=== PATIENT | male | born 1965 | race Caucasian/White ===

== ENCOUNTER 2017-02-16 15:34 | Observation (INO) | payer MEDICARE, MEDICAID ==
[2017-02-16] MEDS ORDERED: Aspirin 81 MG Tab.Chew PO ONE (15:39)
[2017-02-16] MEDS ORDERED: Nitroglycerin 0.4 MG Tab.SL SL PRN (15:39)
--- NOTE | 2017-02-16 15:41 | EDM.PDOC ---
ED HPI GENERAL MEDICAL PROBLEM - General Chief Complaint: Chest Pain Stated Complaint: CHEST Time Seen by Provider: 02/16/17 15:41 Source of Information: Reports: Patient - History of Present Illness INITIAL COMMENTS - FREE TEXT/NARRATIVE: HISTORY AND PHYSICAL: History of present illness: [] Patient with history of diabetes presents with chest pain intermittent yesterday a couple of episodes today at work sustained this afternoon for a period of one hour it did improve with nitroglycerin here in the emergency room he rated 3/10 nonradiating, he does have a reproducible component to palpation Otherwise no fever nausea vomiting diarrhea constipation chest pain is 0/10 at current no shortness of breath headache dizziness or palpitation no diaphoresis Review of systems: As per history of present illness and below otherwise all systems reviewed and negative. Past medical history: As per history of present illness and as reviewed below otherwise noncontributory. Surgical history: As per history of present illness and as reviewed below otherwise noncontributory. Social history: No reported history of drug or alcohol abuse. Family history: As per history of present illness and as reviewed below otherwise noncontributory. Physical exam: HEENT: Atraumatic, normocephalic, pupils reactive, negative for conjunctival pallor or scleral icterus, mucous membranes moist, throat clear, neck supple, nontender, trachea midline. Lungs: Clear to auscultation, breath sounds equal bilaterally, chest nontender. Heart: S1S2, regular, negative for clicks, rubs, or JVD. Abdomen: Soft, nondistended, nontender. Negative for masses or hepatosplenomegaly. Negative for costovertebral tenderness. Pelvis: Stable nontender. Genitourinary: Deferred. Rectal: Deferred. Extremities: Atraumatic, negative for cords or calf pain. Neurovascular unremarkable. Neuro: Awake, alert, oriented. Cranial nerves II through XII unremarkable. Cerebellum unremarkable. Motor and sensory unremarkable throughout. Exam nonfocal. Diagnostics: [] At as below EKG Chest one view Therapeutics: [] Are normal saline bolus Aspirin 324 mg by mouth Protonix 80 mg IV Nitroglycerin 0.4 sublingual Impression: [] aTypical chest pain Chronic history of baseline Definitive disposition and diagnosis as appropriate pending reevaluation and review of above. chest Pain Score (Numeric/FACES): 2 - Related Data Allergies Allergy/AdvReac Type Severity Reaction Status Date / Time Penicillins Allergy doesn't Verified 02/16/17 15:43 know sulfamethoxazole AdvReac Nausea and Verified 02/16/17 15:43 [From Bactrim] Vomiting Home Meds: Home Meds Efavirenz/Emtricitabine/Tenofo [Atripla] 1 tab PO DAILY 03/06/14 [History] Insulin Aspart [NovoLOG] 0 unit SUBCUT TIDAC pen 05/20/16 [Rx] Insulin NPH Hum/Reg Insulin Hm [Novolin 70-30 100 Unit/ml Vial] 10 unit SQ BID # 1 ml 05/20/16 [Rx] buPROPion [Wellbutrin XL] 150 mg PO DAILY@1900 tab.er 05/20/16 [Rx] Past Medical History HEENT History: Reports: None Cardiovascular History: Reports: SOB on Exertion Other Cardiovascular History: "A-V shunt" per patient. unable to elaborate further. Respiratory History: Reports: SOB Other Respiratory History: Pulmonary hypertension and pulmonary fibrosis. Gastrointestinal History: Reports: Cholelithiasis, Other (See Below), Pancreatitis Other Gastrointestinal History: nausea Genitourinary History: Reports: Renal Disease Other Genitourinary History: "only one kidney works" Other Musculoskeletal History: Sclerotic bone lesions of pelvis and spine on prev CT's. Neurological History: Reports: None Psychiatric History: Reports: Depression Endocrine/Metabolic History: Reports: Diabetes, Type II Hematologic History: Reports: None Immunologic History: Reports: HIV Oncologic (Cancer) History: Reports: None - Infectious Disease History Infectious Disease History: Reports: Chicken Pox, HIV-Human Immunodeficiency Virus - Past Surgical History Head Surgeries/Procedures: Reports: None Cardiovascular Surgical History: Reports: None Respiratory Surgical History: Reports: None GI Surgical History: Reports: None Male Surgical History: Reports: None Endocrine Surgical History: Reports: None Social & Family History - Family History Family Medical History: Noncontributory Cardiac: Reports: [place] Musculoskeletal: Reports: Arthritis Neurological: Reports: CVA Psychiatric: Reports: None Endocrine/Metabolic: Reports: Diabetes, type II - Tobacco Use Smoking Status *Q: Former Smoker Years of Tobacco use: 20 Packs/Tins Daily: 1 Second Hand Smoke Exposure: Yes - Alcohol Use Days Per Week of Alcohol Use: 0 - Recreational Drug Use Recreational Drug Use: Yes Drug Use in Last 12 Months: No Recreational Drug Type: Reports: Marijuana/Hashish - Living Situation & Occupation Living situation: Reports: Alone, Single Occupation: Unemployed ED ROS GENERAL - Review of Systems Review Of Systems: ROS reveals no pertinent complaints other than HPI. ED EXAM, GENERAL - Physical Exam Exam: See Below Course - Vital Signs Last Recorded V/S: Last Vital Signs Temp 36.9 C 02/16/17 15:44 Pulse 68 02/16/17 15:55 Resp 22 H 02/16/17 15:55 BP 101/61 02/16/17 15:55 Pulse Ox 93 L 02/16/17 15:55 - Orders/Labs/Meds Orders: Active Orders 24 hr Category Date Time Status EKG Documentation Completion [RC] STAT Care 02/16/17 15:38 Active UA W/MICROSCOPIC [URIN] Stat Lab 02/16/17 15:38 Uncollected Sodium Chloride 0.9% [Normal Saline] 1,000 ml Med 02/16/17 15:47 Active IV STAT Medication Orders Sodium Chloride (Normal Saline) 1,000 mls @ 999 mls/hr IV STAT ONE Stop: 02/16/17 16:47 Last Admin: 02/16/17 15:52 Dose: 999 mls/hr Labs: Laboratory Tests 02/16/17 02/16/17 02/16/17 Range/Units 15:41 15:41 15:41 WBC 6.71 (4.0-11.0) K/uL RBC 4.42 L (4.50-5.90) M/uL Hgb 13.2 (13.0-17.0) g/dL Hct 37.5 L (38.0-50.0) % MCV 84.8 (80.0-98.0) fL MCH 29.9 (27.0-32.0) pg MCHC 35.2 (31.0-37.0) g/dL RDW Std Deviation 47.1 (28.0-62.0) fl RDW Coeff of Blanche 15 (11.0-15.0) % Plt Count 118 L (150-400) K/uL MPV 10.00 (7.40-12.00) fL Neut % (Auto) 33.9 L (48.0-80.0) % Lymph % (Auto) 51.4 H (16.0-40.0) % [place] % (Auto) 9.2 (0.0-15.0) % Eos % (Auto) 5.1 (0.0-7.0) % Baso % (Auto) 0.4 (0.0-1.5) % Neut # (Auto) 2.3 (1.4-5.7) K/uL Lymph # (Auto) 3.5 H (0.6-2.4) K/uL [place] # (Auto) 0.6 (0.0-0.8) K/uL Eos # (Auto) 0.3 (0.0-0.7) K/uL Baso # (Auto) 0.0 (0.0-0.1) K/uL Nucleated RBC % 0.0 /100WBC Nucleated RBCs # 0 K/uL Sodium 139 (136-146) mmol/L Potassium 3.6 (3.5-5.1) mmol/L Chloride 117 H (98-110) mmol/L Carbon Dioxide 13 L (21-31) mmol/L BUN 22 (6.0-23.0) mg/dL Creatinine 0.9 (0.6-1.5) mg/dL Est Cr Clr Drug Dosing 82.02 mL/min Estimated GFR (MDRD) > 60.0 ml/min Glucose 90 (60-110) mg/dL Calcium 8.3 L (8.8-10.8) mg/dL Total Bilirubin 1.0 (0.1-1.5) mg/dL AST 35 (5-40) IU/L ALT 17 (8-54) IU/L Alkaline Phosphatase 132 (40-150) Creatine Kinase (9-236) IU/L CK-MB (CK-2) (0-6.6) ng/ml Troponin I < 0.10 (0.0-0.29) NG/ML Total Protein 7.3 (6.0-8.0) g/dL Albumin 3.5 (3.5-5.0) g/dL Globulin 3.8 H (2.0-3.5) g/dL Albumin/Globulin Ratio 0.9 L (1.3-2.8) Amylase 32 (10-90) U/L Lipase < 8 (7-80) U/L /30/17 Range/Units 15:41 WBC (4.0-11.0) K/uL RBC (4.50-5.90) M/uL Hgb (13.0-17.0) g/dL Hct (38.0-50.0) % MCV (80.0-98.0) fL MCH (27.0-32.0) pg MCHC (31.0-37.0) g/dL RDW Std Deviation (28.0-62.0) fl RDW Coeff of Blanche (11.0-15.0) % Plt Count (150-400) K/uL MPV (7.40-12.00) fL Neut % (Auto) (48.0-80.0) % Lymph % (Auto) (16.0-40.0) % [place] % (Auto) (0.0-15.0) % Eos % (Auto) (0.0-7.0) % Baso % (Auto) (0.0-1.5) % Neut # (Auto) (1.4-5.7) K/uL Lymph # (Auto) (0.6-2.4) K/uL [place] # (Auto) (0.0-0.8) K/uL Eos # (Auto) (0.0-0.7) K/uL Baso # (Auto) (0.0-0.1) K/uL Nucleated RBC % /100WBC Nucleated RBCs # K/uL Sodium (136-146) mmol/L Potassium (3.5-5.1) mmol/L Chloride (98-110) mmol/L Carbon Dioxide (21-31) mmol/L BUN (6.0-23.0) mg/dL Creatinine (0.6-1.5) mg/dL Est Cr Clr Drug Dosing mL/min Estimated GFR (MDRD) ml/min Glucose (60-110) mg/dL Calcium (8.8-10.8) mg/dL Total Bilirubin (0.1-1.5) mg/dL AST (5-40) IU/L ALT (8-54) IU/L Alkaline Phosphatase (40-150) Creatine Kinase 97 (9-236) IU/L CK-MB (CK-2) 0.8 (0-6.6) ng/ml Troponin I (0.0-0.29) NG/ML Total Protein (6.0-8.0) g/dL Albumin (3.5-5.0) g/dL Globulin (2.0-3.5) g/dL Albumin/Globulin Ratio (1.3-2.8) Amylase (10-90) U/L Lipase (7-80) U/L Meds: Medications Generic Name Dose Route Start Last Admin Trade Name Miriam PRN Reason Stop Dose Admin Sodium Chloride 1,000 mls @ 999 mls/hr 02/16/17 15:47 02/16/17 15:52 Normal Saline IV 02/16/17 16:47 999 mls/hr STAT ONE Administration Discontinued Medications Generic Name Dose Route Start Last Admin Trade Name Baldoq PRN Reason Stop Dose Admin Aspirin 324 mg 02/16/17 15:39 02/16/17 15:48 Aspirin PO 02/16/17 15:40 324 mg ONETIME ONE Administration Pantoprazole Sodium 40 mg/ 10 mls @ 300 mls/hr 02/16/17 15:58 02/16/17 16:06 Sodium Chloride IVPUSH 02/16/17 15:59 Not Given NOW ONE Pantoprazole Sodium 40 mg/ 10 mls @ 300 mls/hr 02/16/17 16:05 02/16/17 16:06 Sodium Chloride IVPUSH 02/16/17 16:06 300 mls/hr NOW ONE Administration Nitroglycerin 0.4 mg 02/16/17 15:39 02/16/17 15:50 Nitrostat SL 02/16/17 15:50 0.4 mg Q5M PRN Administration Chest Pain Departure - Departure Time of Disposition: 16:33 Disposition: Admitted As Inpatient 65 Condition: fair Clinical Impression: Atypical chest pain - Discharge Information Forms: ED Department Discharge - My Orders Last 24 Hours: My Active Orders 02/16/17 15:38 EKG Documentation Completion [RC] STAT UA W/MICROSCOPIC [URIN] Stat 02/16/17 15:47 Sodium Chloride 0.9% [Normal Saline] 1,000 ml IV STAT - Assessment/Plan Last 24 Hours: My Active Orders 02/16/17 15:38 EKG Documentation Completion [RC] STAT UA W/MICROSCOPIC [URIN] Stat 02/16/17 15:47 Sodium Chloride 0.9% [Normal Saline] 1,000 ml IV STAT
[2017-02-16] MEDS ORDERED: Sodium Chloride 0.9% 1,000 ML IV ONE (15:47)
[2017-02-16] MEDS ORDERED: Pantoprazole 40 MG in Sodium Chloride 0.9% 10 ML IVPUSH ONE ×2 (15:58→16:05)
--- NOTE | 2017-02-16 16:08 | CR ---
EXAMINATION: Portable chest radiograph. HISTORY: Pain. FINDINGS: The trachea is midline. The cardiomediastinal silhouette is within normal limits. No pulmonary infil trates, effusions or pneumothorax. Mild chronic interstitial prominence. Osseous structures appear unremarkable. IMPRESSION: No acute cardiopulmonary process.
[2017-02-16 16:11] LABS: CHLORIDE,CL 117 mmol/L (98-110); SODIUM,NA 139 mmol/L (136-146)
[2017-02-16] MEDS ORDERED: Acetaminophen 325 MG Tab PO PRN (18:16)
[2017-02-16] MEDS ORDERED: Albuterol/Ipratropium 3.0-0.5 MG/3 ML Neb Soln NEB PRN (18:16)
--- NOTE | 2017-02-16 19:45 | PCM.HP ---
<Baluch,John - Last Filed: 02/16/17 20:36> H&P History of Present Illness - General Date of Service: 02/16/17 Admit Problem/Dx: Admission Diagnosis/Problem Admission Diagnosis/Problem Atypical chest pain Source of Information: Patient History Limitations: Reports: Uncooperative - History of Present Illness Initial Comments - Free Text/Narative: 51 yo male with history of DM and HIV admitted for atypical chest pain. History is difficult to obtain as patient seems reluctant to answer questions and will do so only if they are repeated multiple times to him. Chest pain occurred at 1300 today, was mild, substernal, lasted few minutes and occurred while he was walking to the elevator in his aparrtment. He has never had pain like this before. He denies any radiation of pain. He complains of RUSSELL that has been going on for several years now. He states that he sees a lung specialist in [place] whom he had an appointment to see tomorrow. He cancelled the appointment because he has another appointment with another doctor and he wants to schedule both together. His only medication is insulin. He gets it refilled from [facility]. He has seen either 1 or 2 physicians there. He states he was born and raised in [place] and lives on his own. He does not comment on his HIV status. His only complaint is generalized weakness. chest Pain Score (Numeric/FACES): 2 - Related Data Allergies/Adverse Reactions: Allergies Allergy/AdvReac Type Severity Reaction Status Date / Time Penicillins Allergy doesn't Verified 02/16/17 15:43 know sulfamethoxazole AdvReac Nausea and Verified 02/16/17 15:43 [From Bactrim] Vomiting Home Medications: Home Meds Efavirenz/Emtricitabine/Tenofo [Atripla] 1 tab PO BEDTIME 03/06/14 [History] Insulin NPH Hum/Reg Insulin Hm [Novolin 70-30 100 Unit/ml Vial] 18 unit SQ DAILY 02/16/17 [History] Past Medical History HEENT History: Reports: None Cardiovascular History: Reports: SOB on Exertion Other Cardiovascular History: "A-V shunt" per patient. unable to elaborate further. Respiratory History: Reports: SOB Other Respiratory History: Pulmonary hypertension and pulmonary fibrosis. Gastrointestinal History: Reports: Cholelithiasis, Other (See Below), Pancreatitis Other Gastrointestinal History: nausea Genitourinary History: Reports: Renal Disease Other Genitourinary History: "only one kidney works" Other Musculoskeletal History: Sclerotic bone lesions of pelvis and spine on prev CT's. Neurological History: Reports: None Psychiatric History: Reports: Depression Endocrine/Metabolic History: Reports: Diabetes, Type II Hematologic History: Reports: None Immunologic History: Reports: HIV Other Immunologic History: From previous hx but pt is not confirming @ this time. Oncologic (Cancer) History: Reports: None - Infectious Disease History Infectious Disease History: Reports: Chicken Pox, HIV-Human Immunodeficiency Virus - Past Surgical History Head Surgeries/Procedures: Reports: None Cardiovascular Surgical History: Reports: None Respiratory Surgical History: Reports: None GI Surgical History: Reports: None Male Surgical History: Reports: None Endocrine Surgical History: Reports: None Social & Family History - Family History Family Medical History: Noncontributory Cardiac: Reports: [place] Musculoskeletal: Reports: Arthritis Neurological: Reports: CVA Psychiatric: Reports: None Endocrine/Metabolic: Reports: Diabetes, type II - Tobacco Use Smoking Status *Q: Never Smoker Years of Tobacco use: 20 Packs/Tins Daily: 1 Second Hand Smoke Exposure: No - Caffeine Use Caffeine Use: Reports: Coffee Caffeine Use Comment: 1 cup daily - Alcohol Use Days Per Week of Alcohol Use: 0 - Recreational Drug Use Recreational Drug Use: No Drug Use in Last 12 Months: No Recreational Drug Type: Reports: Marijuana/Hashish - Living Situation & Occupation Living situation: Reports: Alone, Single Occupation: Unemployed H&P Review of Systems - Review of Systems: Review Of Systems: See Below General: Reports: Weakness, Fatigue HEENT: Reports: No Symptoms Pulmonary: Reports: Shortness of Breath Cardiovascular: Reports: Chest Pain, Dyspnea on Exertion Gastrointestinal: Reports: No Symptoms Genitourinary: Reports: No Symptoms Musculoskeletal: Reports: No Symptoms Skin: Reports: No Symptoms Psychiatric: Reports: No Symptoms Neurological: Reports: No Symptoms Exam - Exam Exam: See Below - Vital Signs Vital Signs: Last Vital Signs Temp 36.9 C 02/16/17 17:13 Pulse 66 02/16/17 17:13 Resp 18 02/16/17 17:13 BP 101/57 L 02/16/17 17:13 Pulse Ox 90 L 02/16/17 17:13 Weight: 60.4 kg - Exam General: No: Cooperative HEENT: Conjunctiva Clear, EACs Clear Neck: Supple. No: Lymphadenopathy Lungs: Clear to Auscultation, Normal Respiratory Effort Cardiovascular: Regular Rate, Regular Rhythm Abdomen: Normal Bowel Sounds, Soft Extremities: No: Edema Skin: Warm, Dry, Intact - Patient Data Result Diagrams: 02/16/17 15:41 02/16/17 15:41 *Q Meaningful Use (ADM) - VTE *Q VTE Criteria *Q: - Stroke *Q Stroke Criteria *Q: - AMI *Q AMI Criteria *Q: Problem List Initiated/Reviewed/Updated: Yes Orders Last 24hrs: Active Orders 24 hr Category Date Time Status Patient Status [ADT] Routine ADT 02/16/17 18:16 Active Antiembolic Devices [RC] PER UNIT ROUTINE Care 02/16/17 18:30 Active Blood Glucose Check, Bedside [RC] TIDMEALS Care 02/16/17 18:16 Active Cardiac Monitoring [RC] CONTINUOUS Care 02/16/17 18:25 Inactive Oxygen Therapy [RC] PRN Care 02/16/17 18:16 Active RT Aerosol Therapy [RC] ASDIRECTED Care 02/16/17 18:30 Active Telemetry Monitoring [Cardiac Monitoring] [RC] . Care 02/16/17 18:47 Active DIRECTED VTE/DVT Education [RC] PER UNIT ROUTINE Care 02/16/17 18:16 Active Vital Signs [RC] Q4H Care 02/16/17 18:16 Active ADA Diabetic [[place] [employer] Diet] [DIET Diet 02/16/17 Dinner Active ] BASIC METABOLIC PANEL,BMP [CHEM] AM Lab 02/17/17 05:11 Ordered CBC WITH AUTO DIFF [HEME] AM Lab 02/17/17 05:11 Ordered Acetaminophen [Tylenol] Med 02/16/17 18:16 Active 650 mg PO Q4H PRN Albuterol/Ipratropium [DuoNeb 3.0-0.5 MG/3 ML] Med 02/16/17 18:16 Active 3 ml NEB Q4HRRT PRN Sequential Compression Device [OM.PC] Per Unit Routine Oth 02/16/17 18:26 Ordered Resuscitation Status Routine Resus Stat 02/16/17 18:16 Ordered Medication Orders Acetaminophen (Tylenol) 650 mg PO Q4H PRN PRN Reason: Pain (Mild 1-3)/fever Albuterol/Ipratropium (Duoneb 3.0-0.5 Mg/3 Ml) 3 ml NEB Q4HRRT PRN PRN Reason: Shortness Of Breath/wheezing Assessment/Plan Comment:: assessment: 51 yo male with history of DM & HIV admitted for Atypical Chest Pain. in ED he had CBC/CMP/EKG/CXR all which showed no abnormalities. plan: 1. admit to observation 2. telemetry 3. ADA 4. blood glucose TIDAC 5. Novolog sliding scale as per protocol 6. monitor troponin [id number] for total 3 sets 7. as per orders <Brad Zee - Last Filed: 02/17/17 09:19> H&P History of Present Illness - General Admit Problem/Dx: Admission Diagnosis/Problem Admission Diagnosis/Problem Atypical chest pain - History of Present Illness Initial Comments - Free Text/Narative: I was present with the resident during history and physical examination. I have discussed the case with the resident agree with the findings and plan as documented in resident's note. 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 Exam - Vital Signs Vital Signs: Last Vital Signs Temp 36.8 C 02/17/17 08:00 Pulse 68 02/17/17 08:00 Resp 16 02/17/17 08:00 BP 114/69 02/17/17 08:00 Pulse Ox 95 02/17/17 08:00 - Patient Data Lab Results last 24 hrs: Laboratory Results - last 24 hr 02/16/17 02/17/17 02/17/17 Range/Units 19:32 01:40 01:40 WBC 4.09 (4.0-11.0) K/uL RBC 4.17 L (4.50-5.90) M/uL Hgb 12.6 L (13.0-17.0) g/dL Hct 35.4 L (38.0-50.0) % MCV 84.9 (80.0-98.0) fL MCH 30.2 (27.0-32.0) pg MCHC 35.6 (31.0-37.0) g/dL RDW Std Deviation 46.7 (28.0-62.0) fl RDW Coeff of Blanche 15 (11.0-15.0) % Plt Count 106 L (150-400) K/uL MPV 10.90 (7.40-12.00) fL Neut % (Auto) 33.9 L (48.0-80.0) % Lymph % (Auto) 46.2 H (16.0-40.0) % [place] % (Auto) 10.8 (0.0-15.0) % Eos % (Auto) 8.6 H (0.0-7.0) % Baso % (Auto) 0.5 (0.0-1.5) % Neut # (Auto) 1.4 (1.4-5.7) K/uL Lymph # (Auto) 1.9 (0.6-2.4) K/uL [place] # (Auto) 0.4 (0.0-0.8) K/uL Eos # (Auto) 0.4 (0.0-0.7) K/uL Baso # (Auto) 0.0 (0.0-0.1) K/uL Nucleated RBC % 0.0 /100WBC Nucleated RBCs # 0 K/uL Sodium 137 (136-146) mmol/L Potassium 4.6 (3.5-5.1) mmol/L Chloride 116 H (98-110) mmol/L Carbon Dioxide 14 L (21-31) mmol/L BUN 18 (6.0-23.0) mg/dL Creatinine 0.9 (0.6-1.5) mg/dL Est Cr Clr Drug Dosing 82.02 mL/min Estimated GFR (MDRD) > 60.0 ml/min Glucose 127 H (60-110) mg/dL POC Glucose 136 H (60-110) mg/dL Calcium 7.8 L (8.8-10.8) mg/dL Troponin I (0.0-0.29) NG/ML 02/17/17 02/17/17 Range/Units 01:45 07:42 WBC (4.0-11.0) K/uL RBC (4.50-5.90) M/uL Hgb (13.0-17.0) g/dL Hct (38.0-50.0) % MCV (80.0-98.0) fL MCH (27.0-32.0) pg MCHC (31.0-37.0) g/dL RDW Std Deviation (28.0-62.0) fl RDW Coeff of Blanche (11.0-15.0) % Plt Count (150-400) K/uL MPV (7.40-12.00) fL Neut % (Auto) (48.0-80.0) % Lymph % (Auto) (16.0-40.0) % [place] % (Auto) (0.0-15.0) % Eos % (Auto) (0.0-7.0) % Baso % (Auto) (0.0-1.5) % Neut # (Auto) (1.4-5.7) K/uL Lymph # (Auto) (0.6-2.4) K/uL [place] # (Auto) (0.0-0.8) K/uL Eos # (Auto) (0.0-0.7) K/uL Baso # (Auto) (0.0-0.1) K/uL Nucleated RBC % /100WBC Nucleated RBCs # K/uL Sodium (136-146) mmol/L Potassium (3.5-5.1) mmol/L Chloride (98-110) mmol/L Carbon Dioxide (21-31) mmol/L BUN (6.0-23.0) mg/dL Creatinine (0.6-1.5) mg/dL Est Cr Clr Drug Dosing mL/min Estimated GFR (MDRD) ml/min Glucose (60-110) mg/dL POC Glucose (60-110) mg/dL Calcium (8.8-10.8) mg/dL Troponin I < 0.10 < 0.10 (0.0-0.29) NG/ML Result Diagrams: 02/17/17 01:40 02/17/17 01:40 *Q Meaningful Use (ADM) - VTE *Q VTE Criteria *Q: - Stroke *Q Stroke Criteria *Q: - AMI *Q AMI Criteria *Q: Orders Last 24hrs: Active Orders 24 hr Category Date Time Status Patient Status [ADT] Routine ADT 02/16/17 18:16 Active Transfer Patient (Change bed) [ADT] Routine ADT 02/16/17 22:30 Ordered Antiembolic Devices [RC] PER UNIT ROUTINE Care 02/16/17 18:30 Active Blood Glucose Check, Bedside [RC] TIDMEALS Care 02/16/17 18:16 Active Cardiac Monitoring [RC] CONTINUOUS Care 02/16/17 18:25 Inactive Oxygen Therapy [RC] PRN Care 02/16/17 18:16 Active RT Aerosol Therapy [RC] ASDIRECTED Care 02/16/17 18:30 Active Telemetry Monitoring [Cardiac Monitoring] [RC] Q8H Care 02/16/17 18:47 Active Vital Signs [RC] Q4H Care 02/16/17 18:16 Active ADA Diabetic [[place] [employer] Diet] [DIET Diet 02/16/17 Dinner Active ] Acetaminophen [Tylenol] Med 02/16/17 18:16 Active 650 mg PO Q4H PRN Albuterol/Ipratropium [DuoNeb 3.0-0.5 MG/3 ML] Med 02/16/17 18:16 Active 3 ml NEB Q4HRRT PRN Insulin Aspart [NovoLOG] Med 02/17/17 07:30 Active See Protocol SUBCUT TIDAC Sequential Compression Device [OM.PC] Per Unit Routine Oth 02/16/17 18:26 Ordered Resuscitation Status Routine Resus Stat 02/16/17 18:16 Ordered Medication Orders Acetaminophen (Tylenol) 650 mg PO Q4H PRN PRN Reason: Pain (Mild 1-3)/fever Albuterol/Ipratropium (Duoneb 3.0-0.5 Mg/3 Ml) 3 ml NEB Q4HRRT PRN PRN Reason: Shortness Of Breath/wheezing Insulin Aspart (Novolog) 0 unit SUBCUT TIDAC CITLALY PRN Reason: Protocol Last Admin: 02/17/17 06:56 Dose: Not Given
[2017-02-17 02:44] LABS: CHLORIDE,CL 116 mmol/L (98-110); SODIUM,NA 137 mmol/L (136-146)
[2017-02-17] MEDS ORDERED: Insulin Aspart 100 Units/ML 3 ML Pen SUBCUT SCH (07:30)
[2017-02-17 08:11] VITALS: BP 114/69
--- NOTE | 2017-02-17 08:24 | PCM.DCSUM1 ---
Discharge Summary - Hospital Course Free Text/Narrative:: 51 year old male with history of DM and HIV admitted for atypical chest pain. Pain was short and intermittent. Pain resolved prior to admission to floor. His pain did not occur. In ED he had EKG, CXR, Troponin and basic labs all which revealed no significant abnormalities. While on the floor he was monitored on telemetry which was NSR throughout. He was given Novolog sliding scale for his DM. His Toroponin was monitored q6 hours for total 3 sets and all were negative. Patient requested discharge the following day. WE gave him option for follow-up with a pcp at [facility] however patient refused and stated that he will be following up with his pcp at [facility]. He also has f/u with advertising analyst that he missed and will be rescheduling. No changes were made to his medications. - Discharge Data Discharge Date: 02/17/17 Discharge Disposition: Home, Self-Care 01 Condition: Good - Patient Instructions Diet: Diabetic Diet Activity: As Tolerated Notify Provider of: Fever, Increased Pain, Swelling and Redness, Drainage, Nausea and/or Vomiting - Discharge Plan Home Medications: Home Meds Efavirenz/Emtricitabine/Tenofo [Atripla] 1 tab PO BEDTIME 03/06/14 [History] Insulin NPH Hum/Reg Insulin Hm [Novolin 70-30 100 Unit/ml Vial] 18 unit SQ DAILY 02/16/17 [History] Forms: ED Department Discharge Referrals: PCP,None [Primary Care Provider] - - Discharge Summary/Plan Comment DC Time >30 min.: No Discharge Summary/Plan Comment: Patient will be following with PCP at [facility]. - Patient Data Vitals - Most Recent: Last Vital Signs Temp 36.8 C 02/17/17 08:00 Pulse 68 02/17/17 08:00 Resp 16 02/17/17 08:00 BP 114/69 02/17/17 08:00 Pulse Ox 95 02/17/17 08:00 Weight - Most Recent: 60.4 kg I&O - Last 24 hours: Intake & Output 02/16/17 02/17/17 02/17/17 22:59 06:59 14:59 Intake Total 350 Balance 350 Lab Results - Last 24 hrs: Laboratory Results - last 24 hr 05/30/17 05/31/17 05/31/17 Range/Units 19:32 01:40 01:40 WBC 4.09 (4.0-11.0) K/uL RBC 4.17 L (4.50-5.90) M/uL Hgb 12.6 L (13.0-17.0) g/dL Hct 35.4 L (38.0-50.0) % MCV 84.9 (80.0-98.0) fL MCH 30.2 (27.0-32.0) pg MCHC 35.6 (31.0-37.0) g/dL RDW Std Deviation 46.7 (28.0-62.0) fl RDW Coeff of Blanche 15 (11.0-15.0) % Plt Count 106 L (150-400) K/uL MPV 10.90 (7.40-12.00) fL Neut % (Auto) 33.9 L (48.0-80.0) % Lymph % (Auto) 46.2 H (16.0-40.0) % [place] % (Auto) 10.8 (0.0-15.0) % Eos % (Auto) 8.6 H (0.0-7.0) % Baso % (Auto) 0.5 (0.0-1.5) % Neut # (Auto) 1.4 (1.4-5.7) K/uL Lymph # (Auto) 1.9 (0.6-2.4) K/uL [place] # (Auto) 0.4 (0.0-0.8) K/uL Eos # (Auto) 0.4 (0.0-0.7) K/uL Baso # (Auto) 0.0 (0.0-0.1) K/uL Nucleated RBC % 0.0 /100WBC Nucleated RBCs # 0 K/uL Sodium 137 (136-146) mmol/L Potassium 4.6 (3.5-5.1) mmol/L Chloride 116 H (98-110) mmol/L Carbon Dioxide 14 L (21-31) mmol/L BUN 18 (6.0-23.0) mg/dL Creatinine 0.9 (0.6-1.5) mg/dL Est Cr Clr Drug Dosing 82.02 mL/min Estimated GFR (MDRD) > 60.0 ml/min Glucose 127 H (60-110) mg/dL POC Glucose 136 H (60-110) mg/dL Calcium 7.8 L (8.8-10.8) mg/dL Troponin I (0.0-0.29) NG/ML 02/17/17 02/17/17 Range/Units 01:45 07:42 WBC (4.0-11.0) K/uL RBC (4.50-5.90) M/uL Hgb (13.0-17.0) g/dL Hct (38.0-50.0) % MCV (80.0-98.0) fL MCH (27.0-32.0) pg MCHC (31.0-37.0) g/dL RDW Std Deviation (28.0-62.0) fl RDW Coeff of Blanche (11.0-15.0) % Plt Count (150-400) K/uL MPV (7.40-12.00) fL Neut % (Auto) (48.0-80.0) % Lymph % (Auto) (16.0-40.0) % [place] % (Auto) (0.0-15.0) % Eos % (Auto) (0.0-7.0) % Baso % (Auto) (0.0-1.5) % Neut # (Auto) (1.4-5.7) K/uL Lymph # (Auto) (0.6-2.4) K/uL [place] # (Auto) (0.0-0.8) K/uL Eos # (Auto) (0.0-0.7) K/uL Baso # (Auto) (0.0-0.1) K/uL Nucleated RBC % /100WBC Nucleated RBCs # K/uL Sodium (136-146) mmol/L Potassium (3.5-5.1) mmol/L Chloride (98-110) mmol/L Carbon Dioxide (21-31) mmol/L BUN (6.0-23.0) mg/dL Creatinine (0.6-1.5) mg/dL Est Cr Clr Drug Dosing mL/min Estimated GFR (MDRD) ml/min Glucose (60-110) mg/dL POC Glucose (60-110) mg/dL Calcium (8.8-10.8) mg/dL Troponin I < 0.10 < 0.10 (0.0-0.29) NG/ML Med Orders - Current: Current Medications Acetaminophen (Tylenol) 650 mg PO Q4H PRN PRN Reason: Pain (Mild 1-3)/fever Albuterol/Ipratropium (Duoneb 3.0-0.5 Mg/3 Ml) 3 ml NEB Q4HRRT PRN PRN Reason: Shortness Of Breath/wheezing Insulin Aspart (Novolog) 0 unit SUBCUT TIDAC CITLALY PRN Reason: Protocol Last Admin: 02/17/17 06:56 Dose: Not Given Discontinued Medications Aspirin (Aspirin) 324 mg PO ONETIME ONE Stop: 02/16/17 15:40 Last Admin: 02/16/17 15:48 Dose: 324 mg Sodium Chloride (Normal Saline) 1,000 mls @ 999 mls/hr IV STAT ONE Stop: 02/16/17 16:47 Last Admin: 02/16/17 15:52 Dose: 999 mls/hr Pantoprazole Sodium 40 mg/ (Sodium Chloride) 10 mls @ 300 mls/hr IVPUSH NOW ONE Stop: 02/16/17 15:59 Last Admin: 02/16/17 16:06 Dose: Not Given Pantoprazole Sodium 40 mg/ (Sodium Chloride) 10 mls @ 300 mls/hr IVPUSH NOW ONE Stop: 02/16/17 16:06 Last Admin: 02/16/17 16:06 Dose: 300 mls/hr Nitroglycerin (Nitrostat) 0.4 mg SL Q5M PRN PRN Reason: Chest Pain Stop: 02/16/17 15:50 Last Admin: 02/16/17 15:50 Dose: 0.4 mg *Q Meaningful Use (DIS) - VTE *Q VTE Criteria *Q: - Stroke *Q Stroke Criteria *Q: - AMI *Q AMI Criteria *Q:
== END 2017-02-17 10:15 | disposition home or self-care (01) ==
LOC: MW.ED 15:34 → MW.ICU 16:34 → MW.ED 16:54 → MW.MS 22:00
PROVIDERS: ADMIT Internal Medicine; ATTEND Internal Medicine
DX: R07.89 Other chest pain (principal); E11.9 Type 2 diabetes mellitus without complications; Z21 Asymptomatic human immunodeficiency virus [HIV] infection status; I27.2 Other secondary pulmonary hypertension; J84.10 Pulmonary fibrosis, unspecified; F32.9 Major depressive disorder, single episode, unspecified; Z88.0 Allergy status to penicillin; Z88.2 Allergy status to sulfonamides; Z79.4 Long term (current) use of insulin; Z79.899 Other long term (current) drug therapy
CPT/HCPCS: 36415; 71010; 80048; 80053; 82150; 82550; 82553; 82962; 83690; 84484; 85025; 93005; 96361; 96374; 99285; A9270; C9113; G0378; J7040

== ENCOUNTER 2018-01-27 23:49 | Inpatient (IN) | payer MEDICARE, MEDICAID ==
[2018-01-27] MEDS ORDERED: Sodium Chloride 0.9% 2.5 ML Syringe FLUSH PRN (23:57)
[2018-01-27] MEDS ORDERED: Albuterol/Ipratropium 3.0-0.5 MG/3 ML Neb Soln NEB ONE (23:57)
[2018-01-27] MEDS ORDERED: Sodium Chloride 0.9% 1,000 ML IV ONE (23:57)
[2018-01-27] MEDS ORDERED: Sodium Chloride 0.9% 10 ML Syringe FLUSH PRN (23:57)
--- NOTE | 2018-01-28 00:03 | EDM.PDOC ---
ED HPI GENERAL MEDICAL PROBLEM - General Chief Complaint: Respiratory Problem Stated Complaint: UNK Time Seen by Provider: 01/27/18 23:54 - History of Present Illness INITIAL COMMENTS - FREE TEXT/NARRATIVE: HISTORY AND PHYSICAL: History of present illness: The patient is a 52-year-old male who is brought here EMS with a history of COPD HIV positive status diabetes, insulin requiring, who initially EMS was dispensed for patient being found in the hallway with decreased level of consciousness who on their arrival woke up was interactive and refused transfer. According to the story which they called me on the patient was trying to get into his unit to get his oxygen tank and he lowered himself to the ground not hitting his head or passing out. Without the oxygen he felt confused and once the paramedics corrected that he was awake alert and oriented and did not want to be transferred. EMS stated the scene because I did not feel he look quite right and during the course of their evaluation of him he was not maintaining his O2 sats despite oxygen. The patient says he has COPD and diabetes but is not very good with giving the history here. He denies any chest pain abdominal pain or any extremity complaints and has no head neck or back pain. The patient is very slow to answer and I need to ask questions multiple times. Patient normally is on 5 L of oxygen at his baseline and his Accu-Chek per EMS was 399. He cannot tell me about his medications or when he is taken today and he does not tell me he specifically has had a cough or a specific fever. Patient says that he is shaky and that is visible on my evaluation. Patient was admitted here at the end of January of last year for atypical chest pain and that is where I learned of his HIV positive status. Further information is not known about this patient and he has not had any ER visits since that time. He has had some clinic visits and I will attempt to get those records Review of systems: As per history of present illness and below otherwise all systems reviewed and negative. Past medical history: As per history of present illness and as reviewed below otherwise noncontributory. Surgical history: As per history of present illness and as reviewed below otherwise noncontributory. Social history: No reported history of drug or alcohol abuse. Family history: As per history of present illness and as reviewed below otherwise noncontributory. Physical exam: General: Well-developed very thin and frail male who is very shaky on my evaluation but moves all extremities spontaneously and will answer questions. His O2 sat at rest is in the high 80s when I have him take deep breaths on my exam his sats will go up to the mid 90s. HEENT: Atraumatic, normocephalic, pupils reactive, negative for conjunctival pallor or scleral icterus, mucous membranes tacky, throat clear, neck supple, nontender, trachea midline. Lungs: Clear to auscultation occasional coarse breath sound but no wheezing stridor or work of breathing. He does have some exaggerated work of breathing, breath sounds equal bilaterally, chest nontender. Heart: S1S2, regular rhythm but tachycardic rate on my evaluation, negative for clicks, rubs, or JVD. No overt murmurs are appreciated Abdomen: Soft, nondistended, nontender. Negative for masses or hepatosplenomegaly. Negative for costovertebral tenderness. Pelvis: Stable nontender. Genitourinary: Deferred. Rectal: Deferred. Extremities: Atraumatic, negative for cords or calf pain. Neurovascular unremarkable. Full range of motion without tenderness defects or deficits and there is no pedal edema Neuro: Awake, alert, and answering simple questions. Cranial nerves II through XII are grossly unremarkable with the patient is very challenging exam Motor and sensory unremarkable throughout. Exam nonfocal. Skin: There is no evidence of any overt rashes or lesions and turgor seems slightly diminished Back: There are no midline step-offs tenderness or defects of the thoracic or lumbar spine no posterior rib tenderness and no visible evidence of any trauma on the back trunk or extremities Diagnostics: EKG 2 CBC CMP INR troponin lactic acid UA urine culture blood cultures [address] scan of the head portable chest x-ray CPK, LDH CTA of the chest Therapeutics: IV O2 monitors IV fluids duoneb Levaquin and Rocephin According to the clinic records, which are sparse, the patient takes insulin Zofran trazodone bupropion and Atripla, ages a triple antiviral drugs for HIV. There were no recent clinic notes to look at in the last note from [facility] was in 2015 and the last encounter with Dr. EDWARDS sales representative [employer] was August 2017. 0110: Patient is improving clinically and as her rate now is below 100 and his O2 sats are in the high 90s to 100 on 15 L. We will begin to titrate his oxygen. I will repeat his EKG as the first one had significant artifact. His labs are indicating a metabolic acidosis and possible early sepsis but at this point I do not have a source but I'm awaiting a urine sample. I will also add CPK and LDH to his labs. 0130: Patient is much more awake and talkative now as we told him that if he did not give a urine sample we would have to do a catheterization. His immediate response to that conversation was that he absolutely did not want that and that he wanted to see at the bedside to do without dizziness or unsteadiness. He was very clear in his conversation to nursing about what he was not going to allow to happen and this is improved from his arrival. After these events nursing asked him if he was having any pain and he denied. He is not very forthcoming about the metallic G and recent events and says that he just started feeling weak and ill just this evening prior to EMS coming. There is a lot of history going on with this patient that he is not offering or is unable to offer. Please note when the patient did get up to give a urine sample his oxygen level did drop and he became more dyspneic which again improved once he was resting. 0157: Case was discussed with the hospitalist Dr. Socrates Russo who agrees with admission and we will give a dose of Rocephin and Levaquin as well as do a CTA of the chest and plan for admission CT scan indicates a groundglass appearance of multiple areas along possibly consistent with infection. Critical care time excluding procedures"35min Impression: Near syncope with unknown length of immobilization and decreased mental status/ dehydration, improving; metabolic acidosis rule out sepsis, , hypoxia with history of COPD probable pneumonia Definitive disposition and diagnosis as appropriate pending reevaluation and review of above. - Related Data Allergies Allergy/AdvReac Type Severity Reaction Status Date / Time Penicillins Allergy doesn't Verified 01/27/18 23:59 know sulfamethoxazole AdvReac Nausea and Verified 01/27/18 23:59 [From Bactrim] Vomiting Home Meds: Home Meds Efavirenz/Emtricitabine/Tenofo [Atripla] 1 tab PO BEDTIME 03/06/14 [History] Insulin NPH Hum/Reg Insulin Hm [Novolin 70-30 100 Unit/ml Vial] 18 unit SQ DAILY 02/16/17 [History] buPROPion HCl [Wellbutrin Xl] 1 tab PO DAILY 01/28/18 [History] traZODone HCl [Trazodone HCl] 1 tab PO BEDTIME 01/28/18 [History] Past Medical History HEENT History: Reports: None Cardiovascular History: Reports: SOB on Exertion Other Cardiovascular History: "A-V shunt" per patient. unable to elaborate further. Respiratory History: Reports: SOB Other Respiratory History: Pulmonary hypertension and pulmonary fibrosis. Gastrointestinal History: Reports: Cholelithiasis, Other (See Below), Pancreatitis Other Gastrointestinal History: nausea Genitourinary History: Reports: Renal Disease Other Genitourinary History: "only one kidney works" Other Musculoskeletal History: Sclerotic bone lesions of pelvis and spine on prev CT's. Neurological History: Reports: None Psychiatric History: Reports: Depression Endocrine/Metabolic History: Reports: Diabetes, Type II Hematologic History: Reports: None Immunologic History: Reports: HIV Other Immunologic History: From previous hx but pt is not confirming @ this time. Oncologic (Cancer) History: Reports: None - Infectious Disease History Infectious Disease History: Reports: Chicken Pox, HIV-Human Immunodeficiency Virus - Past Surgical History Head Surgeries/Procedures: Reports: None Cardiovascular Surgical History: Reports: None Respiratory Surgical History: Reports: None GI Surgical History: Reports: None Male Surgical History: Reports: None Endocrine Surgical History: Reports: None Social & Family History - Family History Family Medical History: Noncontributory Cardiac: Reports: NC Musculoskeletal: Reports: Arthritis Neurological: Reports: CVA Psychiatric: Reports: None Endocrine/Metabolic: Reports: Diabetes, type II - Caffeine Use Caffeine Use: Reports: Coffee Caffeine Use Comment: 1 cup daily - Living Situation & Occupation Living situation: Reports: Alone, Single Occupation: Unemployed ED ROS GENERAL - Review of Systems Review Of Systems: ROS reveals no pertinent complaints other than HPI. ED EXAM, GENERAL - Physical Exam Exam: See Below (See dictation) Course - Vital Signs Last Recorded V/S: Last Vital Signs Temp 36.6 C 01/28/18 01:44 Pulse 89 01/28/18 01:44 Resp 28 H 01/28/18 01:44 BP 112/65 01/28/18 01:44 Pulse Ox 100 01/28/18 02:01 - Orders/Labs/Meds Orders: Active Orders 24 hr Category Date Time Status Patient Status [ADT] Stat ADT 01/28/18 03:05 Ordered Cardiac Monitoring [RC] . DIRECTED Care 01/27/18 23:55 Active EKG Documentation Completion [RC] STAT Care 01/27/18 23:55 Active EKG Documentation Completion [RC] STAT Care 01/28/18 01:13 Active Oxygen Therapy, ED [RC] ASDIRECTED Care 01/27/18 23:55 Active Pulse Oximetry [RC] ASDIRECTED Care 01/27/18 23:55 Active RT Aerosol Therapy [RC] ASDIRECTED Care 01/27/18 23:57 Active Ang Chest [CT] Stat Exams 01/28/18 02:04 Taken Chest 1V Frontal [CR] Stat Exams 01/27/18 23:56 Taken Head wo Cont [CT] Stat Exams 01/27/18 23:56 Taken CULTURE URINE [RM] Stat Lab 01/28/18 01:36 Ordered UA W/MICROSCOPIC [URIN] Stat Lab 01/28/18 01:36 Ordered Sodium Chloride 0.9% [Normal Saline] 1,000 ml Med 01/28/18 01:15 Active IV ASDIRECTED Sodium Chloride 0.9% [Saline Flush] Med 01/27/18 23:57 Active 10 ml FLUSH ASDIRECTED PRN Sodium Chloride 0.9% [Saline Flush] Med 01/27/18 23:57 Active 2.5 ml FLUSH ASDIRECTED PRN Blood Culture x2 Reflex Set [OM.PC] Stat Oth 01/27/18 23:56 Ordered Saline Lock Insert [OM.PC] Stat Oth 01/27/18 23:55 Ordered Medication Orders Sodium Chloride (Normal Saline) 1,000 mls @ 125 mls/hr IV ASDIRECTED [facility] Last Admin: 01/28/18 01:50 Dose: 125 mls/hr Sodium Chloride (Saline Flush) 10 ml FLUSH ASDIRECTED PRN PRN Reason: Keep Vein Open Sodium Chloride (Saline Flush) 2.5 ml FLUSH ASDIRECTED PRN PRN Reason: Keep Vein Open Labs: Laboratory Tests 01/27/18 01/27/18 01/27/18 Range/Units 00:10 00:10 00:10 WBC 8.40 (4.0-11.0) K/uL RBC 4.50 (4.50-5.90) M/uL Hgb 14.1 (13.0-17.0) g/dL Hct 39.6 (38.0-50.0) % MCV 88.0 (80.0-98.0) fL MCH 31.3 (27.0-32.0) pg MCHC 35.6 (31.0-37.0) g/dL RDW Std Deviation 49.1 (28.0-62.0) fl RDW Coeff of Blanche 16 H (11.0-15.0) % Plt Count 122 L (150-400) K/uL MPV 9.80 (7.40-12.00) fL Neut % (Auto) 70.6 (48.0-80.0) % Lymph % (Auto) 19.3 (16.0-40.0) % [place] % (Auto) 7.6 (0.0-15.0) % Eos % (Auto) 2.3 (0.0-7.0) % Baso % (Auto) 0.2 (0.0-1.5) % Neut # (Auto) 5.9 H (1.4-5.7) K/uL Lymph # (Auto) 1.6 (0.6-2.4) K/uL [place] # (Auto) 0.6 (0.0-0.8) K/uL Eos # (Auto) 0.2 (0.0-0.7) K/uL Baso # (Auto) 0.0 (0.0-0.1) K/uL Nucleated RBC % 0.0 /100WBC Nucleated RBCs # 0 K/uL INR 1.18 ABG pH 7.291 L (7.35-7.45) ABG pCO2 23 L (35-45) mmHG ABG pO2 49 L (75-100) mmHG ABG HCO3 11 L (22-26) mEq/L ABG Total CO2 9.6 ABG Base Excess -13.2 L (-2.0-2.0) Lactate 5.8 H (0.20-2.00) mmol/L Sodium (136-148) mmol/L Potassium (3.5-5.1) mmol/L Chloride (98-107) mmol/L Carbon Dioxide (21.0-32.0) mmol/L BUN (7.0-18.0) mg/dL Creatinine (0.8-1.3) mg/dL Est Cr Clr Drug Dosing Estimated GFR (MDRD) ml/min Glucose (74-106) mg/dL Calcium (8.5-10.1) mg/dL Total Bilirubin (0.2-1.0) mg/dL AST (15-37) IU/L ALT (14-63) IU/L Alkaline Phosphatase (46-116) U/L Lactate Dehydrogenase (81-234) U/L Creatine Kinase (26-308) U/L Troponin I (0.000-0.056) ng/mL Total Protein (6.4-8.2) g/dL Albumin (3.4-5.0) g/dL Globulin (2.0-3.5) g/dL Albumin/Globulin Ratio (1.3-2.8) Urine Color Urine Appearance Urine pH (5.0-8.0) Ur Specific [place] (1.001-1.035) Urine Protein (NEGATIVE) mg/dL Urine Glucose (UA) (NEGATIVE) mg/dL Urine Ketones (NEGATIVE) mg/dL Urine Occult Blood (NEGATIVE) Urine Nitrite (NEGATIVE) Urine Bilirubin (NEGATIVE) Urine Urobilinogen (<2.0) EU/dL Ur Leukocyte Esterase (NEGATIVE) Urine RBC (0-2/HPF) Urine WBC (0-5/HPF) Ur Epithelial Cells (NONE-FEW) Urine Bacteria (NEGATIVE) 01/27/18 01/28/18 01/28/18 Range/Units 00:10 00:10 01:36 WBC (4.0-11.0) K/uL RBC (4.50-5.90) M/uL Hgb (13.0-17.0) g/dL Hct (38.0-50.0) % MCV (80.0-98.0) fL MCH (27.0-32.0) pg MCHC (31.0-37.0) g/dL RDW Std Deviation (28.0-62.0) fl RDW Coeff of Blanche (11.0-15.0) % Plt Count (150-400) K/uL MPV (7.40-12.00) fL Neut % (Auto) (48.0-80.0) % Lymph % (Auto) (16.0-40.0) % [place] % (Auto) (0.0-15.0) % Eos % (Auto) (0.0-7.0) % Baso % (Auto) (0.0-1.5) % Neut # (Auto) (1.4-5.7) K/uL Lymph # (Auto) (0.6-2.4) K/uL [place] # (Auto) (0.0-0.8) K/uL Eos # (Auto) (0.0-0.7) K/uL Baso # (Auto) (0.0-0.1) K/uL Nucleated RBC % /100WBC Nucleated RBCs # K/uL INR ABG pH (7.35-7.45) ABG pCO2 (35-45) mmHG ABG pO2 (75-100) mmHG ABG HCO3 (22-26) mEq/L ABG Total CO2 ABG Base Excess (-2.0-2.0) Lactate (0.20-2.00) mmol/L Sodium 142 (136-148) mmol/L Potassium 4.0 (3.5-5.1) mmol/L Chloride 112 H (98-107) mmol/L Carbon Dioxide 15.4 L (21.0-32.0) mmol/L BUN 34 H (7.0-18.0) mg/dL Creatinine 1.4 H (0.8-1.3) mg/dL Est Cr Clr Drug Dosing TNP Estimated GFR (MDRD) 53.0 ml/min Glucose 170 H (74-106) mg/dL Calcium 8.8 (8.5-10.1) mg/dL Total Bilirubin 1.1 H (0.2-1.0) mg/dL AST 40 H (15-37) IU/L ALT 19 (14-63) IU/L Alkaline Phosphatase 137 H (46-116) U/L Lactate Dehydrogenase 233 (81-234) U/L Creatine Kinase 80 (26-308) U/L Troponin I < 0.050 (0.000-0.056) ng/mL Total Protein 8.2 (6.4-8.2) g/dL Albumin 3.5 (3.4-5.0) g/dL Globulin 4.7 H (2.0-3.5) g/dL Albumin/Globulin Ratio 0.7 L (1.3-2.8) Urine Color YELLOW Urine Appearance CLEAR Urine pH 5.5 (5.0-8.0) Ur Specific [place] >= 1.030 (1.001-1.035) Urine Protein NEGATIVE (NEGATIVE) mg/dL Urine Glucose (UA) NEGATIVE (NEGATIVE) mg/dL Urine Ketones NEGATIVE (NEGATIVE) mg/dL Urine Occult Blood NEGATIVE (NEGATIVE) Urine Nitrite NEGATIVE (NEGATIVE) Urine Bilirubin NEGATIVE (NEGATIVE) Urine Urobilinogen 0.2 (<2.0) EU/dL Ur Leukocyte Esterase NEGATIVE (NEGATIVE) Urine RBC 0-1 (0-2/HPF) Urine WBC 0-1 (0-5/HPF) Ur Epithelial Cells RARE (NONE-FEW) Urine Bacteria RARE (NEGATIVE) Meds: Medications Generic Name Dose Route Start Last Admin Trade Name Miriam PRN Reason Stop Dose Admin Sodium Chloride 1,000 mls @ 125 mls/hr 01/28/18 01:15 01/28/18 01:50 Normal Saline IV 125 mls/hr ASDIRECTED CITLALY Administration Sodium Chloride 10 ml 01/27/18 23:57 Saline Flush FLUSH ASDIRECTED PRN Keep Vein Open Sodium Chloride 2.5 ml 01/27/18 23:57 Saline Flush FLUSH ASDIRECTED PRN Keep Vein Open Discontinued Medications Generic Name Dose Route Start Last Admin Trade Name Miriam PRN Reason Stop Dose Admin Albuterol/Ipratropium 3 ml 01/27/18 23:57 01/28/18 00:14 Duoneb 3.0-0.5 Mg/3 Ml NEB 01/27/18 23:58 3 ml ONETIME ONE Administration Sodium Chloride 1,000 mls @ 999 mls/hr 01/27/18 23:57 01/28/18 00:04 Normal Saline IV 01/28/18 00:57 999 mls/hr STAT ONE Administration Ceftriaxone Sodium/Dextrose 1 50 mls @ 100 mls/hr 01/28/18 02:04 gm/ Premix IV 01/28/18 02:33 ONETIME ONE Levofloxacin/Dextrose 500 mg/ 100 mls @ 100 mls/hr 01/28/18 02:04 01/28/18 02 :11 Premix IV 01/28/18 03:03 100 mls/hr ONETIME ONE Administration Iopamidol 200 ml 01/28/18 02:39 01/28/18 02:40 Isovue Multipack-370 (76%) IVPUSH 01/28/18 02:40 50 ml ONETIME STA Administration Departure - Departure Time of Disposition: 03:07 Disposition: Refer to Observation Condition: Good Clinical Impression: Metabolic acidosis, Altered mental status, Dehydration Pneumonia Qualifiers: Pneumonia type: due to unspecified organism - Discharge Information Referrals: PCP,None [Primary Care Provider] - Forms: ED Department Discharge - My Orders Last 24 Hours: My Active Orders 01/27/18 23:55 Cardiac Monitoring [RC] . DIRECTED EKG Documentation Completion [RC] STAT Oxygen Therapy, ED [RC] ASDIRECTED Pulse Oximetry [RC] ASDIRECTED Saline Lock Insert [OM.PC] Stat 01/27/18 23:56 Chest 1V Frontal [CR] Stat Head wo Cont [CT] Stat Blood Culture x2 Reflex Set [OM.PC] Stat 01/27/18 23:57 RT Aerosol Therapy [RC] ASDIRECTED Sodium Chloride 0.9% [Saline Flush] 10 ml FLUSH ASDIRECTED PRN Sodium Chloride 0.9% [Saline Flush] 2.5 ml FLUSH ASDIRECTED PRN 01/28/18 01:13 EKG Documentation Completion [RC] STAT 01/28/18 01:15 Sodium Chloride 0.9% [Normal Saline] 1,000 ml IV ASDIRECTED 01/28/18 01:36 CULTURE URINE [RM] Stat UA W/MICROSCOPIC [URIN] Stat 01/28/18 02:04 Ang Chest [CT] Stat 01/28/18 03:05 Patient Status [ADT] Stat - Assessment/Plan Last 24 Hours: My Active Orders 01/27/18 23:55 Cardiac Monitoring [RC] . DIRECTED EKG Documentation Completion [RC] STAT Oxygen Therapy, ED [RC] ASDIRECTED Pulse Oximetry [RC] ASDIRECTED Saline Lock Insert [OM.PC] Stat 01/27/18 23:56 Chest 1V Frontal [CR] Stat Head wo Cont [CT] Stat Blood Culture x2 Reflex Set [OM.PC] Stat 01/27/18 23:57 RT Aerosol Therapy [RC] ASDIRECTED Sodium Chloride 0.9% [Saline Flush] 10 ml FLUSH ASDIRECTED PRN Sodium Chloride 0.9% [Saline Flush] 2.5 ml FLUSH ASDIRECTED PRN 01/28/18 01:13 EKG Documentation Completion [RC] STAT 01/28/18 01:15 Sodium Chloride 0.9% [Normal Saline] 1,000 ml IV ASDIRECTED 01/28/18 01:36 CULTURE URINE [RM] Stat UA W/MICROSCOPIC [URIN] Stat 01/28/18 02:04 Ang Chest [CT] Stat 01/28/18 03:05 Patient Status [ADT] Stat
[2018-01-28 01:05] LABS: CHLORIDE,CL 112 mmol/L (98-107); SODIUM,NA 142 mmol/L (136-148)
[2018-01-28] MEDS ORDERED: Sodium Chloride 0.9% 1,000 ML IV SCH (01:15)
[2018-01-28] MEDS ORDERED: cefTRIAXone 1 GM in Premix Bag 1 BAG IV ONE (02:04)
[2018-01-28] MEDS ORDERED: Levofloxacin/Dextrose 5%-Water 500 MG in Premix Bag 1 BAG IV ONE (02:04)
[2018-01-28] MEDS ORDERED: Iopamidol 755 MG/ML 200 ML Multipack Bottle IVPUSH STA (02:39)
[2018-01-28] MEDS ORDERED: Acetaminophen 325 MG Tab PO PRN (05:34)
[2018-01-28] MEDS ORDERED: Ondansetron 4 MG/2 ML SDV IVPUSH PRN (05:41)
[2018-01-28] MEDS: Insulin Aspart 100 Units/ML 3 ML Pen SUBCUT SCH ×3 (08:12→18:20)
--- NOTE | 2018-01-28 08:26 | PCM.HP ---
H&P History of Present Illness - General Date of Service: 01/28/18 Admit Problem/Dx: Admission Diagnosis/Problem Admission Diagnosis/Problem Metabolic alkalosis Source of Information: Patient, Provider History Limitations: Reports: Uncooperative - History of Present Illness Initial Comments - Free Text/Narative: 52-year-old male with history of COPD, Chronic hypoxic respiratory failure on 5L O2 at home, HIV on HAART with unknown CD4 count and Depression is brought to ED by EMS after being found in the hallway of his home with decreased level of consciousness. He is a poor historian and much of the history is obtained form records. On arrival of EMS woke up was interactive and refused transfer. As per records the patient was trying to get into his unit to get his oxygen tank and he lowered himself to the ground not hitting his head or passing out. Without the oxygen he felt confused and once the paramedics corrected that he was awake alert and oriented and did not want to be transferred. EMS stated the scene because he did not feel he look quite right and during the course of their evaluation of him he was not maintaining his O2 sats despite oxygen. In the ED he was requiring 7L O2. Patient is currently awake but is uncooperative. He resonds to some questioning with one word answers. It is unclear at this time which medications he is on and whether or not he is taking them. He only complains of SOB but either denies or has no response to all other questioning on ROS. no pain Pain Score (Numeric/FACES): 0 - Related Data Allergies/Adverse Reactions: Allergies Allergy/AdvReac Type Severity Reaction Status Date / Time Penicillins Allergy doesn't Verified 01/27/18 23:59 know sulfamethoxazole AdvReac Nausea and Verified 01/27/18 23:59 [From Bactrim] Vomiting Home Medications: Home Meds Efavirenz/Emtricitabine/Tenofo [Atripla] 1 tab PO BEDTIME 03/06/14 [History] Insuln Asp Prot/Insulin Aspart [NovoLOG Mix 70-30] 16 units SQ ACDINNER [History] Insuln Asp Prot/Insulin Aspart [NovoLOG Mix 70-30] 18 units SQ ACBREAKFAST 01/28 [History] Mirtazapine 30 mg PO BEDTIME 01/28/18 [History] Past Medical History HEENT History: Reports: None Cardiovascular History: Reports: SOB on Exertion Other Cardiovascular History: reports AV shunt Respiratory History: Reports: COPD, SOB Other Respiratory History: Pulmonary hypertension and pulmonary fibrosis. Gastrointestinal History: Reports: Cholelithiasis, Pancreatitis Other Gastrointestinal History: nausea Genitourinary History: Reports: Renal Disease Other Genitourinary History: reports 1 kidney functioning Other Musculoskeletal History: Sclerotic bone lesions of pelvis and spine on prev CT's. Neurological History: Reports: None Psychiatric History: Reports: Depression Endocrine/Metabolic History: Reports: Diabetes, Type II Hematologic History: Reports: None Immunologic History: Reports: HIV Other Immunologic History: From previous history Oncologic (Cancer) History: Reports: None Dermatologic History: Reports: None - Infectious Disease History Infectious Disease History: Reports: Chicken Pox, HIV-Human Immunodeficiency Virus - Past Surgical History Head Surgeries/Procedures: Reports: None Cardiovascular Surgical History: Reports: None Respiratory Surgical History: Reports: None GI Surgical History: Reports: None Male Surgical History: Reports: None Endocrine Surgical History: Reports: None Social & Family History - Family History Family Medical History: Noncontributory Cardiac: Reports: OR Musculoskeletal: Reports: Arthritis Neurological: Reports: CVA Psychiatric: Reports: None Endocrine/Metabolic: Reports: Diabetes, type II - Tobacco Use Smoking Status *Q: Never Smoker - Caffeine Use Caffeine Use: Reports: Coffee Caffeine Use Comment: 1 cup daily - Recreational Drug Use Recreational Drug Use: No - Living Situation & Occupation Living situation: Reports: Alone, Single Occupation: Unemployed H&P Review of Systems - Review of Systems: Review Of Systems: See Below Free Text/Narrative: Patient poor historian General: Reports: No Symptoms HEENT: Reports: No Symptoms Pulmonary: Reports: Shortness of Breath. Denies: Cough, Sputum, Hemoptysis Cardiovascular: Reports: No Symptoms Gastrointestinal: Reports: No Symptoms Genitourinary: Reports: No Symptoms Musculoskeletal: Reports: No Symptoms Skin: Reports: No Symptoms Psychiatric: Reports: No Symptoms Neurological: Reports: No Symptoms Hematologic/Lymphatic: Reports: No Symptoms Immunologic: Reports: No Symptoms Exam - Exam Exam: See Below - Vital Signs Vital Signs: Last Vital Signs Temp 36.4 C 01/28/18 06:31 Pulse 91 01/28/18 06:31 Resp 20 01/28/18 06:31 BP 112/66 01/28/18 06:31 Pulse Ox 96 01/28/18 06:31 Weight: 50 kg - Exam General: Alert, Oriented. No: Cooperative HEENT: Conjunctiva Clear, EACs Clear, EOMI, Hearing Intact, Mucosa Moist & Pauline , Nares Patent, Normal Nasal Septum, Posterior Pharynx Clear, Pupils Equal, Pupils Reactive Neck: Supple, Trachea Midline Lungs: Normal Respiratory Effort, Decreased Breath Sounds Cardiovascular: Regular Rate, Regular Rhythm GI/Abdominal Exam: Normal Bowel Sounds, Soft, Non-Tender Extremities: Normal Inspection, Non-Tender, No Pedal Edema Peripheral Pulses: 2+: Dorsalis Pedis (L), Dorsalis Pedis (R) Skin: Warm, Dry, Intact Neurological: Cranial Nerves Intact - Patient Data Lab Results Last 24 hrs: Laboratory Results - last 24 hr 01/27/18 01/27/18 01/27/18 Range/Units 00:10 00:10 00:10 WBC 8.40 (4.0-11.0) K/uL RBC 4.50 (4.50-5.90) M/uL Hgb 14.1 (13.0-17.0) g/dL Hct 39.6 (38.0-50.0) % MCV 88.0 (80.0-98.0) fL MCH 31.3 (27.0-32.0) pg MCHC 35.6 (31.0-37.0) g/dL RDW Std Deviation 49.1 (28.0-62.0) fl RDW Coeff of Blanche 16 H (11.0-15.0) % Plt Count 122 L (150-400) K/uL MPV 9.80 (7.40-12.00) fL Neut % (Auto) 70.6 (48.0-80.0) % Lymph % (Auto) 19.3 (16.0-40.0) % Cheshire % (Auto) 7.6 (0.0-15.0) % Eos % (Auto) 2.3 (0.0-7.0) % Baso % (Auto) 0.2 (0.0-1.5) % Neut # (Auto) 5.9 H (1.4-5.7) K/uL Lymph # (Auto) 1.6 (0.6-2.4) K/uL Ches[place] # (Auto) 0.6 (0.0-0.8) K/uL Eos # (Auto) 0.2 (0.0-0.7) K/uL Baso # (Auto) 0.0 (0.0-0.1) K/uL Nucleated RBC % 0.0 /100WBC Nucleated RBCs # 0 K/uL INR 1.18 ABG pH 7.291 L (7.35-7.45) ABG pCO2 23 L (35-45) mmHG ABG pO2 49 L (75-100) mmHG ABG HCO3 11 L (22-26) mEq/L ABG Total CO2 9.6 ABG Base Excess -13.2 L (-2.0-2.0) Lactate 5.8 H (0.20-2.00) mmol/L Sodium (136-148) mmol/L Potassium (3.5-5.1) mmol/L Chloride (98-107) mmol/L Carbon Dioxide (21.0-32.0) mmol/L BUN (7.0-18.0) mg/dL Creatinine (0.8-1.3) mg/dL Est Cr Clr Drug Dosing Estimated GFR (MDRD) ml/min Glucose (74-106) mg/dL POC Glucose (60-110) mg/dL Calcium (8.5-10.1) mg/dL Total Bilirubin (0.2-1.0) mg/dL AST (15-37) IU/L ALT (14-63) IU/L Alkaline Phosphatase (46-116) U/L Lactate Dehydrogenase (81-234) U/L Creatine Kinase (26-308) U/L Troponin I (0.000-0.056) ng/mL Total Protein (6.4-8.2) g/dL Albumin (3.4-5.0) g/dL Globulin (2.0-3.5) g/dL Albumin/Globulin Ratio (1.3-2.8) Urine Color Urine Appearance Urine pH (5.0-8.0) Ur Specific Howell (1.001-1.035) Urine Protein (NEGATIVE) mg/dL Urine Glucose (UA) (NEGATIVE) mg/dL Urine Ketones (NEGATIVE) mg/dL Urine Occult Blood (NEGATIVE) Urine Nitrite (NEGATIVE) Urine Bilirubin (NEGATIVE) Urine Urobilinogen (<2.0) EU/dL Ur Leukocyte Esterase (NEGATIVE) Urine RBC (0-2/HPF) Urine WBC (0-5/HPF) Ur Epithelial Cells (NONE-FEW) Urine Bacteria (NEGATIVE) 01/27/18 01/28/18 01/28/18 Range/Units 00:10 00:10 01:36 WBC (4.0-11.0) K/uL RBC (4.50-5.90) M/uL Hgb (13.0-17.0) g/dL Hct (38.0-50.0) % MCV (80.0-98.0) fL MCH (27.0-32.0) pg MCHC (31.0-37.0) g/dL RDW Std Deviation (28.0-62.0) fl RDW Coeff of Blanche (11.0-15.0) % Plt Count (150-400) K/uL MPV (7.40-12.00) fL Neut % (Auto) (48.0-80.0) % Lymph % (Auto) (16.0-40.0) % Cheshire % (Auto) (0.0-15.0) % Eos % (Auto) (0.0-7.0) % Baso % (Auto) (0.0-1.5) % Neut # (Auto) (1.4-5.7) K/uL Lymph # (Auto) (0.6-2.4) K/uL Cheshire # (Auto) (0.0-0.8) K/uL Eos # (Auto) (0.0-0.7) K/uL Baso # (Auto) (0.0-0.1) K/uL Nucleated RBC % /100WBC Nucleated RBCs # K/uL INR ABG pH (7.35-7.45) ABG pCO2 (35-45) mmHG ABG pO2 (75-100) mmHG ABG HCO3 (22-26) mEq/L ABG Total CO2 ABG Base Excess (-2.0-2.0) Lactate (0.20-2.00) mmol/L Sodium 142 (136-148) mmol/L Potassium 4.0 (3.5-5.1) mmol/L Chloride 112 H (98-107) mmol/L Carbon Dioxide 15.4 L (21.0-32.0) mmol/L BUN 34 H (7.0-18.0) mg/dL Creatinine 1.4 H (0.8-1.3) mg/dL Est Cr Clr Drug Dosing TNP Estimated GFR (MDRD) 53.0 ml/min Glucose 170 H (74-106) mg/dL POC Glucose (60-110) mg/dL Calcium 8.8 (8.5-10.1) mg/dL Total Bilirubin 1.1 H (0.2-1.0) mg/dL AST 40 H (15-37) IU/L ALT 19 (14-63) IU/L Alkaline Phosphatase 137 H (46-116) U/L Lactate Dehydrogenase 233 (81-234) U/L Creatine Kinase 80 (26-308) U/L Troponin I < 0.050 (0.000-0.056) ng/mL Total Protein 8.2 (6.4-8.2) g/dL Albumin 3.5 (3.4-5.0) g/dL Globulin 4.7 H (2.0-3.5) g/dL Albumin/Globulin Ratio 0.7 L (1.3-2.8) Urine Color YELLOW Urine Appearance CLEAR Urine pH 5.5 (5.0-8.0) Ur Specific Howell >= 1.030 (1.001-1.035) Urine Protein NEGATIVE (NEGATIVE) mg/dL Urine Glucose (UA) NEGATIVE (NEGATIVE) mg/dL Urine Ketones NEGATIVE (NEGATIVE) mg/dL Urine Occult Blood NEGATIVE (NEGATIVE) Urine Nitrite NEGATIVE (NEGATIVE) Urine Bilirubin NEGATIVE (NEGATIVE) Urine Urobilinogen 0.2 (<2.0) EU/dL Ur Leukocyte Esterase NEGATIVE (NEGATIVE) Urine RBC 0-1 (0-2/HPF) Urine WBC 0-1 (0-5/HPF) Ur Epithelial Cells RARE (NONE-FEW) Urine Bacteria RARE (NEGATIVE) 01/28/18 01/28/18 01/28/18 Range/Units 04:24 06:00 08:09 WBC (4.0-11.0) K/uL RBC (4.50-5.90) M/uL Hgb (13.0-17.0) g/dL Hct (38.0-50.0) % MCV (80.0-98.0) fL MCH (27.0-32.0) pg MCHC (31.0-37.0) g/dL RDW Std Deviation (28.0-62.0) fl RDW Coeff of Blanche (11.0-15.0) % Plt Count (150-400) K/uL MPV (7.40-12.00) fL Neut % (Auto) (48.0-80.0) % Lymph % (Auto) (16.0-40.0) % Ches[place] % (Auto) (0.0-15.0) % Eos % (Auto) (0.0-7.0) % Baso % (Auto) (0.0-1.5) % Neut # (Auto) (1.4-5.7) K/uL Lymph # (Auto) (0.6-2.4) K/uL [place] # (Auto) (0.0-0.8) K/uL Eos # (Auto) (0.0-0.7) K/uL Baso # (Auto) (0.0-0.1) K/uL Nucleated RBC % /100WBC Nucleated RBCs # K/uL INR ABG pH 7.398 (7.35-7.45) ABG pCO2 22 L (35-45) mmHG ABG pO2 98 (75-100) mmHG ABG HCO3 14 L (22-26) mEq/L ABG Total CO2 12.3 ABG Base Excess -9.3 L (-2.0-2.0) Lactate 1.9 (0.20-2.00) mmol/L Sodium (136-148) mmol/L Potassium (3.5-5.1) mmol/L Chloride (98-107) mmol/L Carbon Dioxide (21.0-32.0) mmol/L BUN (7.0-18.0) mg/dL Creatinine (0.8-1.3) mg/dL Est Cr Clr Drug Dosing Estimated GFR (MDRD) ml/min Glucose (74-106) mg/dL POC Glucose 112 H (60-110) mg/dL Calcium (8.5-10.1) mg/dL Total Bilirubin (0.2-1.0) mg/dL AST (15-37) IU/L ALT (14-63) IU/L Alkaline Phosphatase (46-116) U/L Lactate Dehydrogenase (81-234) U/L Creatine Kinase (26-308) U/L Troponin I (0.000-0.056) ng/mL Total Protein (6.4-8.2) g/dL Albumin (3.4-5.0) g/dL Globulin (2.0-3.5) g/dL Albumin/Globulin Ratio (1.3-2.8) Urine Color Urine Appearance Urine pH (5.0-8.0) Ur Specific Howell (1.001-1.035) Urine Protein (NEGATIVE) mg/dL Urine Glucose (UA) (NEGATIVE) mg/dL Urine Ketones (NEGATIVE) mg/dL Urine Occult Blood (NEGATIVE) Urine Nitrite (NEGATIVE) Urine Bilirubin (NEGATIVE) Urine Urobilinogen (<2.0) EU/dL Ur Leukocyte Esterase (NEGATIVE) Urine RBC (0-2/HPF) Urine WBC (0-5/HPF) Ur Epithelial Cells (NONE-FEW) Urine Bacteria (NEGATIVE) Result Diagrams: 01/27/18 00:10 01/27/18 00:10 Problem List Initiated/Reviewed/Updated: Yes Orders Last 24hrs: Active Orders 24 hr Category Date Time Status Patient Status [ADT] Stat ADT 01/28/18 03:05 Active Blood Glucose Check, Bedside [RC] TIDAC Care 01/28/18 07:57 Active Cardiac Monitoring [RC] . DIRECTED Care 01/27/18 23:55 Inactive EKG Documentation Completion [RC] STAT Care 01/27/18 23:55 Active EKG Documentation Completion [RC] STAT Care 01/28/18 01:13 Active Intake and Output [RC] Q12H Care 01/28/18 05:48 Active Overnight Pulse Oximetry [RC] Click to Edit Care 01/28/18 05:43 Active Oxygen Therapy, ED [RC] ASDIRECTED Care 01/27/18 23:55 Active Pulse Oximetry [RC] ASDIRECTED Care 01/27/18 23:55 Active RT Aerosol Therapy [RC] ASDIRECTED Care 01/27/18 23:57 Active Telemetry Monitoring [Cardiac Monitoring] [RC] . Care 01/28/18 03:45 Active DIRECTED Up With Assistance [RC] ASDIRECTED Care 01/28/18 05:42 Active Vital Signs [RC] Q4H Care 01/28/18 05:48 Active Regular Diet [DIET] Diet 01/28/18 Breakfast Active Ang Chest [CT] Stat Exams 01/28/18 02:04 Taken Chest 1V Frontal [CR] Stat Exams 01/27/18 23:56 Taken Head wo Cont [CT] Stat Exams 01/27/18 23:56 Taken CULTURE URINE [RM] Stat Lab 01/28/18 01:36 Ordered UA W/MICROSCOPIC [URIN] Stat Lab 01/28/18 01:36 Ordered Acetaminophen [Tylenol] Med 01/28/18 05:34 Active 650 mg PO Q4H PRN Insulin Aspart [NovoLOG] Med 01/28/18 07:00 Active See Protocol SUBCUT TIDAC Ondansetron [Zofran] Med 01/28/18 05:41 Active 4 mg IVPUSH Q4H PRN Sodium Chloride 0.9% [Normal Saline] 1,000 ml Med 01/28/18 01:15 Active IV ASDIRECTED Sodium Chloride 0.9% [Normal Saline] 1,000 ml Med 01/28/18 05:45 Active IV ASDIRECTED Sodium Chloride 0.9% [Saline Flush] Med 01/27/18 23:57 Active 10 ml FLUSH ASDIRECTED PRN Sodium Chloride 0.9% [Saline Flush] Med 01/27/18 23:57 Active 2.5 ml FLUSH ASDIRECTED PRN Blood Culture x2 Reflex Set [OM.PC] Stat Oth 01/27/18 23:56 Ordered Pulse Oximetry Continuous Monitoring [OM.PC] Routine Oth 01/28/18 05:43 Ordered Saline Lock Insert [OM.PC] Stat Oth 01/27/18 23:55 Ordered Medication Orders Acetaminophen (Tylenol) 650 mg PO Q4H PRN PRN Reason: Pain Sodium Chloride (Normal Saline) 1,000 mls @ 125 mls/hr IV ASDIRECTED CITLALY Last Admin: 01/28/18 01:50 Dose: 125 mls/hr Sodium Chloride (Normal Saline) 1,000 mls @ 100 mls/hr IV ASDIRECTED CITLALY Insulin Aspart (Novolog) 0 unit SUBCUT TIDAC CITLALY; Protocol Last Admin: 01/28/18 08:12 Dose: Not Given Admin: 01/28/18 08:12 Dose: Not Given Ondansetron HCl (Zofran) 4 mg IVPUSH Q4H PRN PRN Reason: Nausea Sodium Chloride (Saline Flush) 10 ml FLUSH ASDIRECTED PRN PRN Reason: Keep Vein Open Sodium Chloride (Saline Flush) 2.5 ml FLUSH ASDIRECTED PRN PRN Reason: Keep Vein Open Assessment/Plan Comment:: #Acute on Chronic Respiratory Failure with Hypoxia, secondary to CAP -differential includes CAP and/or COPD exacerbation -baseline home O2 5L, currently on 7L -CXR revealed no abnormalities -CTA chest from reveals scattered ground glass opacities -received Rocephin single dose and Levaquin single dose in ED -History of HIV with unavailable CD4 count Plan: -continue supplemental O2, wean as tolerated -continue Levaquin -continue duonebs -obtain sputum cultures -f/u blood cultures obtained in ED #COPD #Chronic Lung Disease #Ground Glass Opacities on current CT -CTA chest from current ED visit reveals scattered ground glass opacities -no ground glass opacities on CT chest wo contrast from 07/13/[address] chest with contrast from 05/19/2016 -PFT from reveals mixed obstructive and restrictive component with mild response to bronchodilator -patient not currently on any inhalers -plan as per above #History HIV -currently on Efavirenz/Emtricitabine/Tenofo (Artipla) -no CD4 count available Plan: -continue Artripla -obtain CD4 count #Elevated LFT #Hyperbilirubinemia #Splenomegaly, on current CT #Chronic Liver Disease -CT Abdomen with contrast from 05/19/2016 & 07/13/2017 negative for hepatic changes -US abdomen from 06/01/16 reveals fatty liver -may be secondary to Artripla side effect Plan: -obtain GGT to confirm liver as source of elevated Alk phos -continue to monitor #Thrombocytopenia, chronic -likely secondary to splenomegaly -continue to monitor #SANTY -Cr currently 1.4 -most recent baseline Cr from 02/17/17 was 0.9 -treat with IVF #Hydronephrosis, on CTA current chest #Retroperitoneal Fibrosis -Hydronephrosis was also present on CT scan of the abdomen and pelvis performed in July 2017 -unclear records, may have been worked up in the past -f/u with pcp out-patient #DM Type 2 -unclear history, HbA1C in 2015 was 4.6% -obtain HbA1C -start medium dose SSI -continue to monitor #Depression -resume home Bupropion and Trazodone
[2018-01-28] MEDS: Sodium Chloride 0.9% 1,000 ML IV SCH ×2 (08:30→18:34)
--- NOTE | 2018-01-28 15:36 | CR ---
EXAM DATE: 01/28/18 PATIENT'S AGE: 52 Patient: ERIC JUAN Facility: [place], [place] Site . Site : 1965 Study: XRay Chest [id number]/11/2018 12:34:36 AM Ordering Physician: Avtar Crawford Final Report: INDICATION: SOB TECHNIQUE: Chest 1 view COMPARISON: None FINDINGS: Cardiovascular and mediastinum: Heart size and vasculature are normal in caliber and appearance. Mediastinum is within normal limits. Lungs and pleural space: No focal consolidation. No sign of pleural effusion. No pneumothorax. Bones and soft tissues: Mild degenerative changes. IMPRESSION: No acute cardiopulmonary disease. Dictated by Erickson Claros MD @ 01/28/2018 12:36:19 AM Dictated by: Erickson Claros MD @ 01/28/2018 00:36:50 (Electronic Signature) Report Signed by Proxy. [facility]
--- NOTE | 2018-01-28 15:37 | CT ---
EXAM DATE: 01/28/18 PATIENT'S AGE: 52 Patient: ERIC JUAN Facility: [place], [place] Site . Site : 1965 Study: CT Head [id number]/11/2018 12:48:49 AM Ordering Physician: Avtar Final Report: INDICATION: AMS TECHNIQUE: CT Head without contrast. COMPARISON: None. FINDINGS: There is no sign of intracranial hemorrhage or mass effect. The ha-white differentiation is preserved. No abnormal intra-axial or extra-axial fluid collection. No acute disease of the visualized paranasal sinuses and mastoid air cells. No fracture evident. No scalp hematoma/laceration. IMPRESSION: No acute intracranial process. Dictated by: Erickson Claros MD @ 01/28/2018 00:51:08 (Electronic Signature) Report Signed by Proxy. [facility]
--- NOTE | 2018-01-28 15:38 | CT ---
EXAM DATE: 01/28/18 PATIENT'S AGE: 52 Patient: ERIC JUAN Facility: [place], [place] Site . Site : 1965 Study: CT Chest Angio [id number]/11/2018 2:42:52 AM Ordering Physician: Avtar Crawford Final Report: INDICATION: SOB, COPD, CP TECHNIQUE: CT chest pulmonary angiogram acquired with IV contrast COMPARISON: None FINDINGS: Cardiovascular structures: Normal vascular enhancement of the pulmonary arteries , no sign of pulmonary embolism. Heart size is normal. Atherosclerotic disease. No sign of aneurysm or dissection in the thoracic aorta. Mediastinum and eduardo: No mass or adenopathy. Lungs: Scattered geographic ground-glass opacities throughout both lungs. No pleural effusion or pneumothorax. Chest wall and axilla: No mass or adenopathy. Bones: Degenerative changes. Upper abdomen: Atrophied right kidney. Partially imaged right-sided hydronephrosis. Nonspecific prominent central mesenteric lymph nodes. Nonspecific splenomegaly measuring up to 14.2 cm. IMPRESSION: 1. No evidence of pulmonary embolism. 2. Scattered geographic ground-glass opacities throughout both lungs. Please correlate for signs of infection/inflammation. 3. Partially imaged right-sided hydronephrosis. 4. Nonspecific prominent central mesenteric lymph nodes and splenomegaly. Dictated by Erickson Claros MD @ 01/28/2018 3:01:34 AM Dictated by: Erickson Claros MD @ 01/28/2018 03:03:04 (Electronic Signature) Report Signed by Proxy. [facility]
[2018-01-28] MEDS ORDERED: EFAVIRENZ PO SCH (21:00)
[2018-01-28] MEDS ORDERED: TENOFO PO SCH (21:00)
[2018-01-28] MEDS ORDERED: Mirtazapine 15 MG Tab PO SCH (21:00)
[2018-01-28] MEDS ORDERED: EMTRICITABINE PO SCH (21:00)
[2018-01-29] MEDS ORDERED: Levofloxacin/Dextrose 5%-Water 750 MG in Premix Bag 1 BAG IV SCH (03:30)
[2018-01-29] MEDS: Sodium Chloride 0.9% 1,000 ML IV SCH (05:59)
[2018-01-29 06:46] LABS: CHLORIDE,CL 111 mmol/L (98-107); SODIUM,NA 137 mmol/L (136-148)
--- NOTE | 2018-01-29 10:52 | PCM.DCSUM1 ---
<Baluch,John - Last Filed: 01/29/18 10:52> Discharge Summary - Hospital Course Free Text/Narrative:: 52 year old male admitted for Acute on Chronic respiratory failure with hypoxia. He was treated with Levaquin IV. His symptoms improved rapidly and he was back to his baseline O2 evening of admission. He was alert, ambulatory, tolerating po intake, afebrile with stable vitals. He was discharged home. F/U with his PCP was arranged. #Acute on Chronic Respiratory Failure with Hypoxia -presumed secondary to CAP -CXR revealed no abnormalities -CTA chest from reveals scattered ground glass opacities -History of HIV with unavailable CD4 count -treated with supplemental O2, Levaquin IV Plan: -discharge on Levaquin 750 mg PO QD for 5 days -resume Home O2 at 5L -f/u with PCP #COPD #Chronic Lung Disease #Ground Glass Opacities on current CT -unclear wether the GGO on CT are due to PNA or if there is additional lung process going on which may or may not -CTA chest from current ED visit reveals scattered ground glass opacities -no ground glass opacities on CT chest wo contrast from 07/13/[address] chest with contrast from 05/19/2016 -PFT from reveals mixed obstructive and restrictive component with mild response to bronchodilators Plan: -f/u arranged with PCP -recommend pulmonary consult and checking CD4 count #History HIV -currently on Efavirenz/Emtricitabine/Tenofo (Artipla) -no CD4 count available Plan: -continue Artripla - unclear whether or not patient is taking this currently however it should be evaluated by his PCP as this may be causing patients liver disease -recommend repeating CD4 count - due to this test being a send out and with sample that is only viable for 2 days we were unable to order CD4 count since patient was admitted on wednesday -f/u with pcp #Elevated LFT #Hyperbilirubinemia #Splenomegaly, on current CT #Chronic Liver Disease -CT Abdomen with contrast from 05/19/2016 & 07/13/2017 negative for hepatic changes -US abdomen from 06/01/16 reveals fatty liver -may be secondary to Artripla side effect plan: -f/u with PCP #Thrombocytopenia, chronic -likely secondary to splenomegaly #SANTY, resolved -treated with IVF #Hydronephrosis, on CTA current chest #Retroperitoneal Fibrosis -Hydronephrosis was also present on CT scan of the abdomen and pelvis performed in July 2017 -unclear records, may have been worked up in the past -f/u with pcp out-patient #Hx of DM Type 2 -unclear history, HbA1C in 2016 was 4.6% -patient states he is not taking his insulin -HbA1C repeated and was 5.2%, BG levels stable Plan -based on records and current HbA1C, patient does not seem to have DM or it has been controlled without meds -DC Insulin -f/u with PCP - Discharge Data Discharge Date: 01/29/18 Discharge Disposition: Home, Self-Care 01 Condition: Good - Patient Instructions Diet: Regular Diet as Tolerated Activity: As Tolerated, Rest and Relax Today Showering/Bathing: January Shower Notify Provider of: Fever, Increased Pain, Swelling and Redness, Drainage, Nausea and/or Vomiting - Discharge Plan Prescriptions/Med Rec: Levofloxacin 750 mg PO DAILY 5 Days #5 tablet Home Medications: Home Meds Efavirenz/Emtricitabine/Tenofo [Atripla] 1 tab PO BEDTIME 03/06/14 [History] Mirtazapine 30 mg PO BEDTIME 01/28/18 [History] Levofloxacin 750 mg PO DAILY 5 Days #5 tablet 01/29/18 [Rx] Patient Handouts: Dehydration, Adult, [id number], Metabolic Acidosis, Levofloxacin tablets Referrals: [facility] [Outside] Arlen Wiley NP [Ordering Only Provider] - 02/07/18 10:15 am - Discharge Summary/Plan Comment DC Time >30 min.: No - General Info Date of Service: 01/29/18 Admission Dx/Problem (Free Text: Admission Diagnosis/Problem Admission Diagnosis/Problem Metabolic alkalosis Functional Status: Reports: Pain Controlled, Tolerating Diet, Ambulating, Urinating - Review of Systems General: Reports: No Symptoms HEENT: Reports: No Symptoms Pulmonary: Reports: No Symptoms Cardiovascular: Reports: No Symptoms Gastrointestinal: Reports: No Symptoms Genitourinary: Reports: No Symptoms Musculoskeletal: Reports: No Symptoms Skin: Reports: No Symptoms Neurological: Reports: No Symptoms Psychiatric: Reports: No Symptoms Systems Review Comment: Patient not co-operative - Patient Data Vitals - Most Recent: Last Vital Signs Temp 36.2 C 01/29/18 08:00 Pulse 69 05/12/18 08:00 Resp 18 01/29/18 08:00 BP 106/58 L 01/29/18 08:00 Pulse Ox 92 L 01/29/18 08:00 Weight - Most Recent: 57 kg I&O - Last 24 hours: Intake & Output 01/28/18 01/29/18 01/29/18 22:59 06:59 14:59 Intake Total 1834 1250 Output Total 0 850 Balance 1834 400 Lab Results - Last 24 hrs: Laboratory Results - last 24 hr 01/28/18 01/28/18 01/29/18 Range/Units 11:44 16:16 06:12 WBC 5.41 (4.0-11.0) K/uL RBC 3.82 L (4.50-5.90) M/uL Hgb 12.0 L (13.0-17.0) g/dL Hct 33.6 L (38.0-50.0) % MCV 88.0 (80.0-98.0) fL MCH 31.4 (27.0-32.0) pg MCHC 35.7 (31.0-37.0) g/dL RDW Std Deviation 49.2 (28.0-62.0) fl RDW Coeff of Blanche 16 H (11.0-15.0) % Plt Count 94 L (150-400) K/uL MPV 10.00 (7.40-12.00) fL Neut % (Auto) 45.6 L (48.0-80.0) % Lymph % (Auto) 36.8 (16.0-40.0) % Logan % (Auto) 7.8 (0.0-15.0) % Eos % (Auto) 9.6 H (0.0-7.0) % Baso % (Auto) 0.2 (0.0-1.5) % Neut # (Auto) 2.5 (1.4-5.7) K/uL Lymph # (Auto) 2.0 (0.6-2.4) K/uL Logan # (Auto) 0.4 (0.0-0.8) K/uL Eos # (Auto) 0.5 (0.0-0.7) K/uL Baso # (Auto) 0.0 (0.0-0.1) K/uL Nucleated RBC % 0.0 /100WBC Nucleated RBCs # 0 K/uL Sodium (136-148) mmol/L Potassium (3.5-5.1) mmol/L Chloride (98-107) mmol/L Carbon Dioxide (21.0-32.0) mmol/L BUN (7.0-18.0) mg/dL Creatinine (0.8-1.3) mg/dL Est Cr Clr Drug Dosing Estimated GFR (MDRD) ml/min Glucose (74-106) mg/dL POC Glucose 101 111 H (60-110) mg/dL Calcium (8.5-10.1) mg/dL 01/29/18 01/29/18 Range/Units 06:12 06:43 WBC (4.0-11.0) K/uL RBC (4.50-5.90) M/uL Hgb (13.0-17.0) g/dL Hct (38.0-50.0) % MCV (80.0-98.0) fL MCH (27.0-32.0) pg MCHC (31.0-37.0) g/dL RDW Std Deviation (28.0-62.0) fl RDW Coeff of Blanche (11.0-15.0) % Plt Count (150-400) K/uL MPV (7.40-12.00) fL Neut % (Auto) (48.0-80.0) % Lymph % (Auto) (16.0-40.0) % Logan % (Auto) (0.0-15.0) % Eos % (Auto) (0.0-7.0) % Baso % (Auto) (0.0-1.5) % Neut # (Auto) (1.4-5.7) K/uL Lymph # (Auto) (0.6-2.4) K/uL Logan # (Auto) (0.0-0.8) K/uL Eos # (Auto) (0.0-0.7) K/uL Baso # (Auto) (0.0-0.1) K/uL Nucleated RBC % /100WBC Nucleated RBCs # K/uL Sodium 137 (136-148) mmol/L Potassium 4.0 (3.5-5.1) mmol/L Chloride 111 H (98-107) mmol/L Carbon Dioxide 16.2 L (21.0-32.0) mmol/L BUN 20 H (7.0-18.0) mg/dL Creatinine 1.1 (0.8-1.3) mg/dL Est Cr Clr Drug Dosing TNP Estimated GFR (MDRD) > 60.0 ml/min Glucose 99 (74-106) mg/dL POC Glucose 89 (60-110) mg/dL Calcium 8.1 L (8.5-10.1) mg/dL VENUS Results - Last 24 hrs: Microbiology 01/27/18 00:20 Aerobic Blood Culture - Preliminary Blood - Venous - Lab Draw NO GROWTH AFTER 1 DAY Anaerobic Blood Culture - Preliminary NO GROWTH AFTER 1 DAY 01/27/18 00:10 Aerobic Blood Culture - Preliminary Blood - Venous NO GROWTH AFTER 1 DAY Anaerobic Blood Culture - Preliminary NO GROWTH AFTER 1 DAY Med Orders - Current: Current Medications Acetaminophen (Tylenol) 650 mg PO Q4H PRN PRN Reason: Pain Sodium Chloride (Normal Saline) 1,000 mls @ 125 mls/hr IV ASDIRECTED [facility] Last Admin: 01/28/18 01:50 Dose: 125 mls/hr Sodium Chloride (Normal Saline) 1,000 mls @ 100 mls/hr IV ASDIRECTED [facility] Last Admin: 01/29/18 05:59 Dose: 100 mls/hr Levofloxacin/Dextrose 750 mg/ (Premix) 150 mls @ 100 mls/hr IV Q24H [facility] Last Admin: 01/29/18 02:37 Dose: 100 mls/hr Mirtazapine (Remeron) 30 mg PO BEDTIME [facility] Last Admin: 01/28/18 21:19 Dose: 30 mg Efavirenz/Emtricitabine/Tenofo [Atripla] TabOwn Med 1 tab PO BEDTIME [facility] Last Admin: 01/28/18 21:23 Dose: 1 tab Ondansetron HCl (Zofran) 4 mg IVPUSH Q4H PRN PRN Reason: Nausea Sodium Chloride (Saline Flush) 10 ml FLUSH ASDIRECTED PRN PRN Reason: Keep Vein Open Sodium Chloride (Saline Flush) 2.5 ml FLUSH ASDIRECTED PRN PRN Reason: Keep Vein Open Discontinued Medications Albuterol/Ipratropium (Duoneb 3.0-0.5 Mg/3 Ml) 3 ml NEB ONETIME ONE Stop: 01/27/18 23:58 Last Admin: 01/28/18 00:14 Dose: 3 ml Sodium Chloride (Normal Saline) 1,000 mls @ 999 mls/hr IV STAT ONE Stop: 01/28/18 00:57 Last Admin: 01/28/18 00:04 Dose: 999 mls/hr Ceftriaxone Sodium/Dextrose 1 (gm/ Premix) 50 mls @ 100 mls/hr IV ONETIME ONE Stop: 01/28/18 02:33 Last Admin: 01/28/18 04:47 Dose: 100 mls/hr Levofloxacin/Dextrose 500 mg/ (Premix) 100 mls @ 100 mls/hr IV ONETIME ONE Stop: 01/28/18 03:03 Last Admin: 01/28/18 02:11 Dose: 100 mls/hr Insulin Aspart ([facility]) [facility]; Protocol Last Admin: 01/28/18 18:20 Dose: Not Given Iopamidol (Isovue Multipack-370 (76%)) 200 ml IVPUSH ONETIME STA Stop: 01/28/18 02:40 Last Admin: 01/28/18 02:40 Dose: 50 ml - Exam Quality Assessment: Reports: Supplemental Oxygen General: Reports: Alert, Oriented HEENT: Reports: Pupils Equal, Pupils Reactive, EOMI, Mucous Membr. Moist/[place]ohman Neck: Reports: Supple Lungs: Reports: Clear to Auscultation, Normal Respiratory Effort Cardiovascular: Reports: Regular Rate, Regular Rhythm GI/Abdominal Exam: Normal Bowel Sounds, Soft, Non-Tender, No Distention Extremities: Normal Inspection, No Pedal Edema, Normal Capillary Refill Neurological: Reports: No New Focal Deficit Psy/Mental Status: Reports: Alert, Labile Mood. Denies: Suicidal Ideation, Homicidal Ideation, Hallucinations, Withdrawal Symptoms <Jasbir Matos - Last Filed: 01/31/18 21:03> - Patient Data Vitals - Most Recent: Last Vital Signs Temp 36.7 C 01/29/18 12:00 Pulse 65 01/29/18 12:00 Resp 16 01/29/18 12:00 BP 107/65 01/29/18 12:00 Pulse Ox 98 01/29/18 12:00 VENUS Results - Last 24 hrs: Microbiology 01/27/18 00:20 Aerobic Blood Culture - Preliminary Blood - Venous - Lab Draw NO GROWTH AFTER 3 DAYS Anaerobic Blood Culture - Preliminary NO GROWTH AFTER 3 DAYS 01/27/18 00:10 Aerobic Blood Culture - Preliminary Blood - Venous NO GROWTH AFTER 3 DAYS Anaerobic Blood Culture - Preliminary NO GROWTH AFTER 3 DAYS Med Orders - Current: Current Medications Discontinued Medications Acetaminophen (Tylenol) 650 mg PO Q4H PRN PRN Reason: Pain Albuterol/Ipratropium (Duoneb 3.0-0.5 Mg/3 Ml) 3 ml NEB ONETIME ONE Stop: 01/27/18 23:58 Last Admin: 01/28/18 00:14 Dose: 3 ml Sodium Chloride (Normal Saline) 1,000 mls @ 999 mls/hr IV STAT ONE Stop: 01/28/18 00:57 Last Admin: 01/28/18 00:04 Dose: 999 mls/hr Sodium Chloride (Normal Saline) 1,000 mls @ 125 mls/hr IV ASDIRECTED [facility] Last Admin: 01/28/18 01:50 Dose: 125 mls/hr Ceftriaxone Sodium/Dextrose 1 (gm/ Premix) 50 mls @ 100 mls/hr IV ONETIME ONE Stop: 01/28/18 02:33 Last Admin: 01/28/18 04:47 Dose: 100 mls/hr Levofloxacin/Dextrose 500 mg/ (Premix) 100 mls @ 100 mls/hr IV ONETIME ONE Stop: 01/28/18 03:03 Last Admin: 01/28/18 02:11 Dose: 100 mls/hr Sodium Chloride (Normal Saline) 1,000 mls @ 100 mls/hr IV ASDIRECTED [facility] Last Infusion: 01/29/18 12:50 Dose: 100 mls/hr Levofloxacin/Dextrose 750 mg/ (Premix) 150 mls @ 100 mls/hr IV Q24H [facility] Last Admin: 01/29/18 02:37 Dose: 100 mls/hr Insulin Aspart (Novolog) 0 unit SUBCUT TIDAC [facility]; Protocol Last Admin: 01/28/18 18:20 Dose: Not Given Iopamidol (Isovue Multipack-370 (76%)) 200 ml IVPUSH ONETIME STA Stop: 01/28/18 02:40 Last Admin: 01/28/18 02:40 Dose: 50 ml Mirtazapine (Remeron) 30 mg PO BEDTIME [facility] Last Admin: 01/28/18 21:19 Dose: 30 mg Efavirenz/Emtricitabine/Tenofo [Atripla] TabOwn Med 1 tab PO BEDTIME [facility] Last Admin: 01/28/18 21:23 Dose: 1 tab Ondansetron HCl (Zofran) 4 mg IVPUSH Q4H PRN PRN Reason: Nausea Sodium Chloride (Saline Flush) 10 ml FLUSH ASDIRECTED PRN PRN Reason: Keep Vein Open Sodium Chloride (Saline Flush) 2.5 ml FLUSH ASDIRECTED PRN PRN Reason: Keep Vein Open - Free Text/Narrative Note: I have examined the patient with the resident. I have discussed findings and treatment plan with resident. I agree with the assessment and plan outlined in the following resident's note.
[2018-01-29 13:10] VITALS: BP 107/65
== END 2018-01-29 12:50 | disposition home or self-care (01) | DRG 193 ==
LOC: MW.ED 23:49 → MW.MS 01-28 02:41
PROVIDERS: ADMIT Family Medicine; ATTEND Family Medicine
DX: J18.9 Pneumonia, unspecified organism (principal); J96.21 Acute and chronic respiratory failure with hypoxia; R41.82 Altered mental status, unspecified; J44.9 Chronic obstructive pulmonary disease, unspecified; J44.0 Chronic obstructive pulmonary disease with (acute) lower respiratory infection; N17.9 Acute kidney failure, unspecified; N13.30 Unspecified hydronephrosis; E87.2 Acidosis; E86.0 Dehydration; R79.89 Other specified abnormal findings of blood chemistry; E80.6 Other disorders of bilirubin metabolism; Z79.4 Long term (current) use of insulin; R16.1 Splenomegaly, not elsewhere classified; N18.9 Chronic kidney disease, unspecified; E11.9 Type 2 diabetes mellitus without complications; D69.6 Thrombocytopenia, unspecified; F32.9 Major depressive disorder, single episode, unspecified; Z79.899 Other long term (current) drug therapy; Z21 Asymptomatic human immunodeficiency virus [HIV] infection status; Z88.0 Allergy status to penicillin; Z88.8 Allergy status to other drugs, medicaments and biological substances; Z99.81 Dependence on supplemental oxygen
CPT/HCPCS: 36415; 70450; 71045; 71275; 81001; 82550; 83615; 87086; 93005 ×2; 94640; 96361; 96365; 99285; J1956; J7040 ×2; Q9967; 36600; 80048; 80053; 82803; 82962; 82977; 83036; 83605; 84484; 85025; 85610; 87040; A9270-GY; J0696

== ENCOUNTER 2019-04-22 18:22 | Observation (INO) | payer MEDICARE, MEDICAID ==
[2019-04-22] MEDS ORDERED: Sodium Chloride 0.9% 10 ML Syringe FLUSH PRN (18:30)
[2019-04-22] MEDS ORDERED: Sodium Chloride 0.9% 2.5 ML Syringe FLUSH PRN (18:30)
[2019-04-22] MEDS ORDERED: methylPREDNISolone Sodium Succinate 125 MG/2 ML SDV IVPUSH ONE (18:38)
--- NOTE | 2019-04-22 18:38 | EDM.PDOC ---
ED HPI GENERAL MEDICAL PROBLEM - General Chief Complaint: General Stated Complaint: PT FAINTED Time Seen by Provider: 04/22/19 18:29 Source of Information: Reports: Patient History Limitations: Reports: No Limitations - History of Present Illness INITIAL COMMENTS - FREE TEXT/NARRATIVE: HISTORY AND PHYSICAL: History of present illness: Patient is a 53-year-old male who presents to the emergency room by ambulance after a syncopal event. Patient states he was walking when had a syncopal event. He is unable to tell me events prior or immediately after the syncopal event. He does not remember waking up on the ground or having to get up off the ground. He informed his who then called the ambulance. at bedside states that she did not witness the patient fall. But reports that he seems "off ". Upon arrival EMS states that the patient did not have his home oxygen on, oxygen saturation was in the 70s (Patient has a history of COPD and typically wears 4 L per nasal cannula). EMS applied a nonrebreather and had him in the high 90s. Patient is currently complaining of a headache and chest pain. EMS reports a temperature of 101.4. Patient denies any neck pain or stiffness, change in vision, back pain or cough. Denies any abdominal pain, nausea, vomiting, diarrhea, constipation or dysuria. Has not noted any blood in urine or stool. Patient has been eating and drinking appropriately. Past medical history of type 2 diabetes, COPD, oxygen dependent, Review of systems: As per history of present illness and below otherwise all systems reviewed and negative. Past medical history: As per history of present illness and as reviewed below otherwise noncontributory. Surgical history: As per history of present illness and as reviewed below otherwise noncontributory. Social history: See social history for further information Family history: As per history of present illness and as reviewed below otherwise noncontributory. Physical exam: General: Chronically ill appearing and well developed 53-year-old male. Alert but does appear confused as he is unable to fully answer my questions. HEENT: Nontender with palpation, normocephalic, pupils equal and reactive bilaterally, negative for conjunctival pallor or scleral icterus, mucous membranes moist, TMs normal bilaterally, throat clear, neck supple, nontender, trachea midline. No drooling or trismus noted. No meningeal signs. No hot potato voice noted. Lungs: Diminished with fine wheezing to the lower lobes bilaterally, breath sounds equal bilaterally, chest nontender. Non-reproducible Heart: S1S2, regular rate and rhythm without overt murmur Abdomen: Soft, nondistended, nontender. Negative for masses. Negative for costovertebral tenderness. Pelvis: Stable nontender. Genitourinary: Deferred. Rectal: Deferred. Skin: Intact, warm, dry. No lesions or rashes noted. Extremities: Moves all extremities per self without difficulty or deficits, negative for cords or calf pain. Nontender with palpitation the upper and lower extremities. Strong distal pulses bilaterally. Neurovascular unremarkable. C-spine/Back: No pinpoint vertebral tenderness upon palpation. No crepitus, step -offs or obvious deformities. Able to lift his toes up towards his nose and pushed down with equal force bilaterally. Denies any urinary or fecal incontinence. Denies any numbness, tingling or saddle paresthesia. Neuro: Awake, alert, oriented. Cranial nerves II through XII unremarkable. Cerebellum unremarkable. Motor and sensory unremarkable throughout. Exam nonfocal. Notes: When discussing if patient had fallen and hurt anything, he states his only complaint is a generalized headache and chest pain. He declines need for imaging of any of the extremities, pelvis or torso. No significant findings on diagnostics. Admission was offered and patient accepts. Dr. Matos was consulted on this case and is agreeable to keeping him for observation with telemetry. Patient's vital signs remain stable. We'll continue to monitor Diagnostics: CBC, CMP, UA, troponin, CPK, chest x-ray, head CT, EKG, blood cultures Therapeutics: Solu-Medrol Impression: Syncope History of COPD Chest pain r/o AR Plan: Observation admission with telemetry Definitive disposition and diagnosis as appropriate pending reevaluation and review of above. Treatments [employer]: Reports: IV/IO, Oxygen cehst Pain Score (Numeric/FACES): 2 head Pain Score (Numeric/FACES): 4 - Related Data Allergies Allergy/AdvReac Type Severity Reaction Status Date / Time Penicillins Allergy doesn't Unverified 04/23/19 10:29 know sulfamethoxazole AdvReac Nausea and Unverified 04/23/19 10:29 [From Bactrim] Vomiting Home Meds: Home Meds Efavirenz/Emtricitabine/Tenofo [Atripla] 1 tab PO BEDTIME 03/06/14 [History] Mirtazapine 30 mg PO BEDTIME 01/28/18 [History] Albuterol/Ipratropium [Combivent Respimat] QID 07/28/18 [History] Albuterol/Ipratropium [DuoNeb 3.0-0.5 MG/3 ML] QID 07/28/18 [History] Budesonide/Formoterol [Symbicort 160-4.5 MCG] 2 inh BID 07/28/18 [History] Hydrocodone/Acetaminophen [Hydrocodon-Acetaminophen 5-325] 1 each PO 12 PRN #12 tablet 07/28/18 [Rx] Ondansetron [Zofran ODT] 4 mg PO Q6H PRN #10 tab.dis 09/02/18 [Rx] Past Medical History HEENT History: Reports: None Cardiovascular History: Reports: SOB on Exertion Other Cardiovascular History: reports AV shunt Respiratory History: Reports: COPD, SOB Other Respiratory History: Pulmonary hypertension and pulmonary fibrosis. Gastrointestinal History: Reports: Cholelithiasis, Pancreatitis Other Gastrointestinal History: nausea Genitourinary History: Reports: Renal Disease Other Genitourinary History: reports 1 kidney functioning Other Musculoskeletal History: Sclerotic bone lesions of pelvis and spine on prev CT's. Neurological History: Reports: None Psychiatric History: Reports: Depression Endocrine/Metabolic History: Reports: Diabetes, Type II Hematologic History: Reports: None Immunologic History: Reports: HIV Other Immunologic History: From previous history Oncologic (Cancer) History: Reports: None Dermatologic History: Reports: None - Infectious Disease History Infectious Disease History: Reports: Chicken Pox, HIV-Human Immunodeficiency Virus - Past Surgical History Head Surgeries/Procedures: Reports: None Cardiovascular Surgical History: Reports: None Respiratory Surgical History: Reports: None GI Surgical History: Reports: None Male Surgical History: Reports: None Endocrine Surgical History: Reports: None Social & Family History - Family History Family Medical History: Noncontributory Cardiac: Reports: AR Musculoskeletal: Reports: Arthritis Neurological: Reports: CVA Psychiatric: Reports: None Endocrine/Metabolic: Reports: Diabetes, type II - Caffeine Use Caffeine Use: Reports: Coffee Caffeine Use Comment: 1 cup daily - Living Situation & Occupation Living situation: Reports: Alone, Single Occupation: Unemployed ED ROS GENERAL - Review of Systems Review Of Systems: ROS reveals no pertinent complaints other than HPI. ED EXAM, GENERAL - Physical Exam Exam: See Below (See dictation) Course - Vital Signs Last Recorded V/S: Last Vital Signs Temp 97.7 F 04/23/19 08:00 Pulse 73 04/23/19 08:00 Resp 18 04/23/19 08:00 BP 114/73 04/23/19 08:00 Pulse Ox 92 L 04/23/19 08:00 - Orders/Labs/Meds Orders: Active Orders 24 hr Category Date Time Status Cardiac Monitoring [RC] Q8H Care 04/22/19 18:31 Active CULTURE BLOOD [BC] Stat Lab 04/22/19 18:45 Received CULTURE BLOOD [BC] Stat Lab 04/22/19 19:40 Received Sodium Chloride 0.9% [Saline Flush] Med 04/22/19 18:30 Active 10 ml FLUSH ASDIRECTED PRN Sodium Chloride 0.9% [Saline Flush] Med 04/22/19 18:30 Active 2.5 ml FLUSH ASDIRECTED PRN Blood Culture x2 Reflex Set [OM.PC] Stat Oth 04/22/19 18:30 Ordered Saline Lock Insert [OM.PC] Stat Oth 04/22/19 18:30 Ordered Medication Orders Sodium Chloride (Normal Saline) 1,000 mls @ 125 mls/hr IV ASDIRECTED [facility] Last Admin: 04/23/19 10:24 Dose: 125 mls/hr Infusion: 04/23/19 08:52 Dose: 125 mls/hr Admin: 04/23/19 00:52 Dose: 125 mls/hr Insulin Aspart (Novolog) 0 unit SUBCUT TIDAC [facility]; Protocol Last Admin: 04/23/19 06:33 Dose: Not Given Sodium Chloride (Saline Flush) 10 ml FLUSH ASDIRECTED PRN PRN Reason: Keep Vein Open Sodium Chloride (Saline Flush) 2.5 ml FLUSH ASDIRECTED PRN PRN Reason: Keep Vein Open Labs: Laboratory Tests 04/22/19 04/22/19 Range/Units 18:45 18:45 WBC 5.55 (4.0-11.0) K/uL RBC 4.92 (4.50-5.90) M/uL Hgb 12.5 L (13.0-17.0) g/dL Hct 38.2 (38.0-50.0) % MCV 77.6 L (80.0-98.0) fL MCH 25.4 L (27.0-32.0) pg MCHC 32.7 (31.0-37.0) g/dL RDW Std Deviation 46.1 (28.0-62.0) fl RDW Coeff of Blanche 17 H (11.0-15.0) % Plt Count 86 L (150-400) K/uL MPV 10.00 (7.40-12.00) fL Neut % (Auto) 52.7 (48.0-80.0) % Lymph % (Auto) 30.6 (16.0-40.0) % [place] % (Auto) 9.4 (0.0-15.0) % Eos % (Auto) 6.8 (0.0-7.0) % Baso % (Auto) 0.5 (0.0-1.5) % Neut # (Auto) 2.9 (1.4-5.7) K/uL Lymph # (Auto) 1.7 (0.6-2.4) K/uL [place] # (Auto) 0.5 (0.0-0.8) K/uL Eos # (Auto) 0.4 (0.0-0.7) K/uL Baso # (Auto) 0.0 (0.0-0.1) K/uL Nucleated RBC % 0.0 /100WBC Nucleated RBCs # 0 K/uL Sodium 135 L (136-148) mmol/L Potassium 3.6 (3.5-5.1) mmol/L Chloride 106 (98-107) mmol/L Carbon Dioxide 18.9 L (21.0-32.0) mmol/L BUN 18 (7.0-18.0) mg/dL Creatinine 1.4 H (0.8-1.3) mg/dL Est Cr Clr Drug Dosing TNP Estimated GFR (MDRD) 52.8 ml/min Glucose 225 H (74-106) mg/dL Calcium 8.0 L (8.5-10.1) mg/dL Total Bilirubin 1.2 H (0.2-1.0) mg/dL AST 33 (15-37) IU/L ALT 19 (14-63) IU/L Alkaline Phosphatase 108 (46-116) U/L Creatine Kinase 76 (26-308) U/L Troponin I < 0.050 (0.000-0.056) ng/mL Total Protein 7.1 (6.4-8.2) g/dL Albumin 3.0 L (3.4-5.0) g/dL Globulin 4.1 H (2.6-4.0) g/dL Albumin/Globulin Ratio 0.7 L (0.9-1.6) Meds: Medications Generic Name Dose Route Start Last Admin Trade Name Freq PRN Reason Stop Dose Admin Sodium Chloride 1,000 mls @ 125 mls/hr 04/22/19 23:15 04/23/19 10:24 Normal Saline IV 125 mls/hr ASDIRECTED [facility] Administration Insulin Aspart 0 unit 04/23/19 07:30 04/23/19 06:33 Novolog SUBCUT Not Given TIDAC [facility] Protocol Sodium Chloride 10 ml 04/22/19 18:30 Saline Flush FLUSH ASDIRECTED PRN Keep Vein Open Sodium Chloride 2.5 ml 04/22/19 18:30 Saline Flush FLUSH ASDIRECTED PRN Keep Vein Open Discontinued Medications Generic Name Dose Route Start Last Admin Trade Name Freq PRN Reason Stop Dose Admin Sodium Chloride 1,000 mls @ 999 mls/hr 04/22/19 23:12 04/22/19 23:44 Normal Saline IV 04/23/19 00:12 999 mls/hr .Bolus ONE Administration Insulin Human Isoph/Insulin Regular 0 unit 04/23/19 06:29 04/23/19 06:51 Novolin 70-30 SUBCUT 04/23/19 06:30 23 units ONETIME ONE Administration Methylprednisolone Sodium Succinate 125 mg 04/22/19 18:38 04/22/19 18:50 Solu-Medrol IVPUSH 04/22/19 18:39 125 mg ONETIME ONE Administration Departure - Departure Time of Disposition: 21:00 Disposition: Refer to Observation Clinical Impression: History of COPD, Chest pain, rule out acute myocardial infarction Syncope Qualifiers: Syncope type: unspecified Qualified Code(s): R55 - Syncope and collapse - Discharge Information - My Orders Last 24 Hours: My Active Orders 04/22/19 18:30 Sodium Chloride 0.9% [Saline Flush] 10 ml FLUSH ASDIRECTED PRN Sodium Chloride 0.9% [Saline Flush] 2.5 ml FLUSH ASDIRECTED PRN Blood Culture x2 Reflex Set [OM.PC] Stat Saline Lock Insert [OM.PC] Stat 04/22/19 18:31 Cardiac Monitoring [RC] Q8H 04/22/19 18:45 CULTURE BLOOD [BC] Stat 04/22/19 19:40 CULTURE BLOOD [BC] Stat - Assessment/Plan Last 24 Hours: My Active Orders 04/22/19 18:30 Sodium Chloride 0.9% [Saline Flush] 10 ml FLUSH ASDIRECTED PRN Sodium Chloride 0.9% [Saline Flush] 2.5 ml FLUSH ASDIRECTED PRN Blood Culture x2 Reflex Set [OM.PC] Stat Saline Lock Insert [OM.PC] Stat 04/22/19 18:31 Cardiac Monitoring [RC] Q8H 04/22/19 18:45 CULTURE BLOOD [BC] Stat 04/22/19 19:40 CULTURE BLOOD [BC] Stat
[2019-04-22 19:29] LABS: BLOOD UREA NITROGEN,BUN 18 mg/dL (7.0-18.0); CARBON DIOXIDE,CO2 18.9 mmol/L (21.0-32.0); CHLORIDE,CL 106 mmol/L (98-107); GLUCOSE RANDOM 225 mg/dL (74-106); POTASSIUM,K 3.6 mmol/L (3.5-5.1); SODIUM,NA 135 mmol/L (136-148)
--- NOTE | 2019-04-22 19:43 | CT ---
HISTORY: Fall. Syncope. TECHNIQUE: CT brain without contrast. COMPARISON: CT brain 01/28/2018. FINDINGS: No acute intracranial hemorrhage. No extra-axial collection. No mass effect or midline shift. Ventricular system is normal in caliber and morphology. Cisterns are patent. Hernandez-white differentiation is maintained. Calvarium is intact. Visualized paranasal sinuses and mastoid air cells are clear. IMPRESSION: No acute intracranial abnormality. Please note that all CT scans at this facility use dose modulation, iterative reconstruction, and/or weight-based dosing when appropriate to reduce radiation dose to as low as reasonably achievable. Dictated by Ellis Kessler MD @ Apr 22 2019 7:42PM Signed by Dr. Ellis Kessler @ Apr 22 2019 7:42PM
--- NOTE | 2019-04-22 20:03 | CR ---
HISTORY: Syncope. Fall. TECHNIQUE: Portable frontal view the chest. COMPARISON: Chest x-ray 09/02/2018. FINDINGS: No airspace consolidation. No pleural effusion or pneumothorax. Pulmonary vasculature and cardiomediastinal silhouette are within normal limits. IMPRESSION: No acute cardiopulmonary abnormality. Dictated by Ellis Kessler MD @ Apr 22 2019 7:59PM Signed by Dr. Ellis Kessler @ Apr 22 2019 8:00PM
[2019-04-22] MEDS ORDERED: Sodium Chloride 0.9% 1,000 ML IV ONE (23:12)
--- NOTE | 2019-04-22 23:14 | PCM.HP ---
H&P History of Present Illness - General Date of Service: 04/22/19 Admit Problem/Dx: Admission Diagnosis/Problem Admission Diagnosis/Problem Syncope - History of Present Illness Initial Comments - Free Text/Narative: 53 yo male with pmh of HIV, DM, oxygen dependent COPD who was evaluated in the ED after a syncopal event. Patient is a poor historian and denies having syncope or chest pain as reported in the ED note. He states he might have had heat exhaustion but unwilling to explain further. cehst Pain Score (Numeric/FACES): 2 head Pain Score (Numeric/FACES): 4 - Related Data Allergies/Adverse Reactions: Allergies Allergy/AdvReac Type Severity Reaction Status Date / Time Penicillins Allergy doesn't Verified 04/23/19 12:19 know sulfamethoxazole AdvReac Nausea and Verified 04/23/19 12:19 [From Bactrim] Vomiting Home Medications: Home Meds Efavirenz/Emtricitabine/Tenofo [Atripla] 1 tab PO BEDTIME 03/06/14 [History] Mirtazapine 30 mg PO BEDTIME 01/28/18 [History] Albuterol/Ipratropium [Combivent Respimat] QID 07/28/18 [History] Albuterol/Ipratropium [DuoNeb 3.0-0.5 MG/3 ML] QID 07/28/18 [History] Budesonide/Formoterol [Symbicort 160-4.5 MCG] 2 inh BID 07/28/18 [History] Hydrocodone/Acetaminophen [Hydrocodon-Acetaminophen 5-325] 1 each PO 12 PRN #12 tablet 07/28/18 [Rx] Ondansetron [Zofran ODT] 4 mg PO Q6H PRN #10 tab.dis 09/02/18 [Rx] metFORMIN [Glucophage XR] 500 mg PO DAILY 04/23/19 [History] Past Medical History HEENT History: Reports: None Cardiovascular History: Reports: SOB on Exertion Other Cardiovascular History: reports AV shunt Respiratory History: Reports: COPD, SOB Other Respiratory History: Pulmonary hypertension and pulmonary fibrosis. Gastrointestinal History: Reports: Cholelithiasis, Pancreatitis Other Gastrointestinal History: nausea Genitourinary History: Reports: Renal Disease Other Genitourinary History: reports 1 kidney functioning Other Musculoskeletal History: Sclerotic bone lesions of pelvis and spine on prev CT's. Neurological History: Reports: None Psychiatric History: Reports: Depression Endocrine/Metabolic History: Reports: Diabetes, Type II Hematologic History: Reports: None Immunologic History: Reports: HIV Other Immunologic History: From previous history Oncologic (Cancer) History: Reports: None Dermatologic History: Reports: None - Infectious Disease History Infectious Disease History: Reports: Chicken Pox, HIV-Human Immunodeficiency Virus - Past Surgical History Head Surgeries/Procedures: Reports: None Cardiovascular Surgical History: Reports: None Respiratory Surgical History: Reports: None GI Surgical History: Reports: None Male Surgical History: Reports: None Endocrine Surgical History: Reports: None Social & Family History - Family History Family Medical History: Noncontributory Cardiac: Reports: [place] Musculoskeletal: Reports: Arthritis Neurological: Reports: CVA Psychiatric: Reports: None Endocrine/Metabolic: Reports: Diabetes, type II - Tobacco Use Smoking Status *Q: Former Smoker Used Tobacco, but Quit: Yes Month/Year Tobacco Last Used: 2008 - Caffeine Use Caffeine Use: Reports: Coffee Caffeine Use Comment: 1 cup daily - Recreational Drug Use Recreational Drug Use: No - Living Situation & Occupation Living situation: Reports: Alone, Single Occupation: Unemployed H&P Review of Systems - Review of Systems: Review Of Systems: ROS reveals no pertinent complaints other than HPI. Exam - Exam Exam: See Below - Vital Signs Vital Signs: Last Vital Signs Temp 36.1 C 04/22/19 21:37 Pulse 66 04/22/19 21:37 Resp 19 04/22/19 21:37 BP 116/72 04/22/19 21:37 Pulse Ox 91 L 04/22/19 21:37 Weight: 79.379 kg - Exam General: Alert, Oriented HEENT: Mucosa Moist & [place] Neck: Supple Lungs: Clear to Auscultation, Normal Respiratory Effort Cardiovascular: Regular Rate, Systolic Murmur GI/Abdominal Exam: Soft, Non-Tender Extremities: No Pedal Edema Skin: Warm, Dry, Intact Neurological: Cranial Nerves Intact Neuro Extensive - Mental Status: Alert - Patient Data Lab Results Last 24 hrs: Laboratory Results - last 24 hr 04/22/19 04/22/19 04/22/19 Range/Units 18:45 18:45 19:50 WBC 5.55 (4.0-11.0) K/uL RBC 4.92 (4.50-5.90) M/uL Hgb 12.5 L (13.0-17.0) g/dL Hct 38.2 (38.0-50.0) % MCV 77.6 L (80.0-98.0) fL MCH 25.4 L (27.0-32.0) pg MCHC 32.7 (31.0-37.0) g/dL RDW Std Deviation 46.1 (28.0-62.0) fl RDW Coeff of Blanche 17 H (11.0-15.0) % Plt Count 86 L (150-400) K/uL MPV 10.00 (7.40-12.00) fL Neut % (Auto) 52.7 (48.0-80.0) % Lymph % (Auto) 30.6 (16.0-40.0) % [place] % (Auto) 9.4 (0.0-15.0) % Eos % (Auto) 6.8 (0.0-7.0) % Baso % (Auto) 0.5 (0.0-1.5) % Neut # (Auto) 2.9 (1.4-5.7) K/uL Lymph # (Auto) 1.7 (0.6-2.4) K/uL [place] # (Auto) 0.5 (0.0-0.8) K/uL Eos # (Auto) 0.4 (0.0-0.7) K/uL Baso # (Auto) 0.0 (0.0-0.1) K/uL Nucleated RBC % 0.0 /100WBC Nucleated RBCs # 0 K/uL ABG pH 7.421 (7.35-7.45) ABG pCO2 28 L (35-45) mmHG ABG pO2 54 L (75-100) mmHG ABG HCO3 18 L (22-26) mEq/L ABG Total CO2 16.0 ABG Base Excess -5.1 L (-2.0-2.0) Sodium 135 L (136-148) mmol/L Potassium 3.6 (3.5-5.1) mmol/L Chloride 106 (98-107) mmol/L Carbon Dioxide 18.9 L (21.0-32.0) mmol/L BUN 18 (7.0-18.0) mg/dL Creatinine 1.4 H (0.8-1.3) mg/dL Est Cr Clr Drug Dosing TNP Estimated GFR (MDRD) 52.8 ml/min Glucose 225 H (74-106) mg/dL POC Glucose (60-110) mg/dL Calcium 8.0 L (8.5-10.1) mg/dL Total Bilirubin 1.2 H (0.2-1.0) mg/dL AST 33 (15-37) IU/L ALT 19 (14-63) IU/L Alkaline Phosphatase 108 (46-116) U/L Creatine Kinase 76 (26-308) U/L Troponin I < 0.050 (0.000-0.056) ng/mL Total Protein 7.1 (6.4-8.2) g/dL Albumin 3.0 L (3.4-5.0) g/dL Globulin 4.1 H (2.6-4.0) g/dL Albumin/Globulin Ratio 0.7 L (0.9-1.6) 04/22/19 Range/Units 22:23 WBC (4.0-11.0) K/uL RBC (4.50-5.90) M/uL Hgb (13.0-17.0) g/dL Hct (38.0-50.0) % MCV (80.0-98.0) fL MCH (27.0-32.0) pg MCHC (31.0-37.0) g/dL RDW Std Deviation (28.0-62.0) fl RDW Coeff of [place]anche (11.0-15.0) % Plt Count (150-400) K/uL MPV (7.40-12.00) fL Neut % (Auto) (48.0-80.0) % Lymph % (Auto) (16.0-40.0) % [place] % (Auto) (0.0-15.0) % Eos % (Auto) (0.0-7.0) % Baso % (Auto) (0.0-1.5) % Neut # (Auto) (1.4-5.7) K/uL Lymph # (Auto) (0.6-2.4) K/uL [place] # (Auto) (0.0-0.8) K/uL Eos # (Auto) (0.0-0.7) K/uL Baso # (Auto) (0.0-0.1) K/uL Nucleated RBC % /100WBC Nucleated RBCs # K/uL ABG pH (7.35-7.45) ABG pCO2 (35-45) mmHG ABG pO2 (75-100) mmHG ABG HCO3 (22-26) mEq/L ABG Total CO2 ABG Base Excess (-2.0-2.0) Sodium (136-148) mmol/L Potassium (3.5-5.1) mmol/L Chloride (98-107) mmol/L Carbon Dioxide (21.0-32.0) mmol/L BUN (7.0-18.0) mg/dL Creatinine (0.8-1.3) mg/dL Est Cr Clr Drug Dosing Estimated GFR (MDRD) ml/min Glucose (74-106) mg/dL POC Glucose 185 H (60-110) mg/dL Calcium (8.5-10.1) mg/dL Total Bilirubin (0.2-1.0) mg/dL AST (15-37) IU/L ALT (14-63) IU/L Alkaline Phosphatase (46-116) U/L Creatine Kinase (26-308) U/L Troponin I (0.000-0.056) ng/mL Total Protein (6.4-8.2) g/dL Albumin (3.4-5.0) g/dL Globulin (2.6-4.0) g/dL Albumin/Globulin Ratio (0.9-1.6) Result Diagrams: 04/22/19 18:45 04/24/19 06:10 Problem List Initiated/Reviewed/Updated: Yes Orders Last 24hrs: Active Orders 24 hr Category Date Time Status Admission Status [Patient Status] [ADT] Stat ADT 04/22/19 19:23 Active Blood Glucose Check, Bedside [RC] QIDACANDBED Care 04/22/19 21:54 Active Cardiac Monitoring [RC] . DIRECTED Care 04/22/19 18:31 Active EKG Documentation Completion [RC] STAT Care 04/22/19 18:30 Active ADA Diabetic [[place] [employer] Diet] [DIET Diet 04/23/19 Breakfast Active ] CULTURE BLOOD [BC] Stat Lab 04/22/19 18:45 Received CULTURE BLOOD [BC] Stat Lab 04/22/19 19:40 Received TROPONIN I [CHEM] Routine Lab 04/23/19 00:45 Ordered TROPONIN I [CHEM] Routine Lab 04/23/19 06:45 Ordered UA RFX VENUS AND CULT IF INDIC [URIN] Stat Lab 04/22/19 18:31 Ordered Sodium Chloride 0.9% [Saline Flush] Med 04/22/19 18:30 Active 10 ml FLUSH ASDIRECTED PRN Sodium Chloride 0.9% [Saline Flush] Med 04/22/19 18:30 Active 2.5 ml FLUSH ASDIRECTED PRN Blood Culture x2 Reflex Set [OM.PC] Stat Oth 04/22/19 18:30 Ordered Saline Lock Insert [OM.PC] Stat Oth 04/22/19 18:30 Ordered Medication Orders Sodium Chloride (Saline Flush) 10 ml FLUSH ASDIRECTED PRN PRN Reason: Keep Vein Open Sodium Chloride (Saline Flush) 2.5 ml FLUSH ASDIRECTED PRN PRN Reason: Keep Vein Open Assessment/Plan Comment:: 53 yo male admitted for dehydration and syncope. We will hydrate with IV fluids and monitor on telemetry.
[2019-04-23] MEDS: Sodium Chloride 0.9% 1,000 ML IV SCH ×3 (00:52→18:31)
[2019-04-23] MEDS ORDERED: Insulin NPH/Insulin Regular,Human 70-30 100 Units/ML 10 ML Vial SUBCUT ONE (06:29)
[2019-04-23] MEDS: Insulin Aspart 100 Units/ML 3 ML Pen SUBCUT SCH ×3 (06:33→17:36)
--- NOTE | 2019-04-23 09:59 | PCM.PN ---
- General Info Date of Service: 04/23/19 Subjective Update: Patient is a 53-year-old male who was admitted for syncopal event. He reports being out during the day yesterday and started feeling very hot and then went to sit down under a spot of shade and "ran out of oxygen," but does not provide further details after that. He has a PMH of HIV, DM and COPD. CT head and CXR were negative. Patient examined at bedside this morning and states that he is feeling better today. Denies SOB or any pain. - Patient Data Vitals - Most Recent: Last Vital Signs Temp 97.7 F 04/23/19 08:00 Pulse 73 04/23/19 08:00 Resp 18 04/23/19 08:00 BP 114/73 04/23/19 08:00 Pulse Ox 92 L 04/23/19 08:00 Weight - Most Recent: 175 lb I&O - Last 24 Hours: Intake & Output 04/22/19 04/23/19 04/23/19 22:59 06:59 14:59 Intake Total 2300 Output Total 600 Balance 1700 Lab Results Last 24 Hours: Laboratory Results - last 24 hr 04/22/19 04/22/19 04/22/19 Range/Units 18:45 18:45 19:50 WBC 5.55 (4.0-11.0) K/uL RBC 4.92 (4.50-5.90) M/uL Hgb 12.5 L (13.0-17.0) g/dL Hct 38.2 (38.0-50.0) % MCV 77.6 L (80.0-98.0) fL MCH 25.4 L (27.0-32.0) pg MCHC 32.7 (31.0-37.0) g/dL RDW Std Deviation 46.1 (28.0-62.0) fl RDW Coeff of Blanche 17 H (11.0-15.0) % Plt Count 86 L (150-400) K/uL MPV 10.00 (7.40-12.00) fL Neut % (Auto) 52.7 (48.0-80.0) % Lymph % (Auto) 30.6 (16.0-40.0) % [place] % (Auto) 9.4 (0.0-15.0) % Eos % (Auto) 6.8 (0.0-7.0) % Baso % (Auto) 0.5 (0.0-1.5) % Neut # (Auto) 2.9 (1.4-5.7) K/uL Lymph # (Auto) 1.7 (0.6-2.4) K/uL [place] # (Auto) 0.5 (0.0-0.8) K/uL Eos # (Auto) 0.4 (0.0-0.7) K/uL Baso # (Auto) 0.0 (0.0-0.1) K/uL Nucleated RBC % 0.0 /100WBC Nucleated RBCs # 0 K/uL ABG pH 7.421 (7.35-7.45) ABG pCO2 28 L (35-45) mmHG ABG pO2 54 L (75-100) mmHG ABG HCO3 18 L (22-26) mEq/L ABG Total CO2 16.0 ABG Base Excess -5.1 L (-2.0-2.0) Sodium 135 L (136-148) mmol/L Potassium 3.6 (3.5-5.1) mmol/L Chloride 106 (98-107) mmol/L Carbon Dioxide 18.9 L (21.0-32.0) mmol/L BUN 18 (7.0-18.0) mg/dL Creatinine 1.4 H (0.8-1.3) mg/dL Est Cr Clr Drug Dosing TNP Estimated GFR (MDRD) 52.8 ml/min Glucose 225 H (74-106) mg/dL POC Glucose (60-110) mg/dL Calcium 8.0 L (8.5-10.1) mg/dL Total Bilirubin 1.2 H (0.2-1.0) mg/dL AST 33 (15-37) IU/L ALT 19 (14-63) IU/L Alkaline Phosphatase 108 (46-116) U/L Creatine Kinase 76 (26-308) U/L Troponin I < 0.050 (0.000-0.056) ng/mL Total Protein 7.1 (6.4-8.2) g/dL Albumin 3.0 L (3.4-5.0) g/dL Globulin 4.1 H (2.6-4.0) g/dL Albumin/Globulin Ratio 0.7 L (0.9-1.6) Urine Color Urine Appearance Urine pH (5.0-8.0) Ur Specific [place] (1.001-1.035) Urine Protein (NEGATIVE) mg/dL Urine Glucose (UA) (NEGATIVE) mg/dL Urine Ketones (NEGATIVE) mg/dL Urine Occult Blood (NEGATIVE) Urine Nitrite (NEGATIVE) Urine Bilirubin (NEGATIVE) Urine Urobilinogen (<2.0) EU/dL Ur Leukocyte Esterase (NEGATIVE) 04/22/19 04/22/19 04/23/19 Range/Units 22:23 23:54 00:53 WBC (4.0-11.0) K/uL RBC (4.50-5.90) M/uL Hgb (13.0-17.0) g/dL Hct (38.0-50.0) % MCV (80.0-98.0) fL MCH (27.0-32.0) pg MCHC (31.0-37.0) g/dL RDW Std Deviation (28.0-62.0) fl RDW Coeff of [place] (11.0-15.0) % Plt Count (150-400) K/uL MPV (7.40-12.00) fL Neut % (Auto) (48.0-80.0) % Lymph % (Auto) (16.0-40.0) % [place] % (Auto) (0.0-15.0) % Eos % (Auto) (0.0-7.0) % Baso % (Auto) (0.0-1.5) % Neut # (Auto) (1.4-5.7) K/uL Lymph # (Auto) (0.6-2.4) K/uL [place] # (Auto) (0.0-0.8) K/uL Eos # (Auto) (0.0-0.7) K/uL Baso # (Auto) (0.0-0.1) K/uL Nucleated RBC % /100WBC Nucleated RBCs # K/uL ABG pH (7.35-7.45) ABG pCO2 (35-45) mmHG ABG pO2 (75-100) mmHG ABG HCO3 (22-26) mEq/L ABG Total CO2 ABG Base Excess (-2.0-2.0) Sodium (136-148) mmol/L Potassium (3.5-5.1) mmol/L Chloride (98-107) mmol/L Carbon Dioxide (21.0-32.0) mmol/L BUN (7.0-18.0) mg/dL Creatinine (0.8-1.3) mg/dL Est Cr Clr Drug Dosing Estimated GFR (MDRD) ml/min Glucose (74-106) mg/dL POC Glucose 185 H (60-110) mg/dL Calcium (8.5-10.1) mg/dL Total Bilirubin (0.2-1.0) mg/dL AST (15-37) IU/L ALT (14-63) IU/L Alkaline Phosphatase (46-116) U/L Creatine Kinase (26-308) U/L Troponin I < 0.050 (0.000-0.056) ng/mL Total Protein (6.4-8.2) g/dL Albumin (3.4-5.0) g/dL Globulin (2.6-4.0) g/dL Albumin/Globulin Ratio (0.9-1.6) Urine Color YELLOW Urine Appearance CLEAR Urine pH 6.0 (5.0-8.0) Ur Specific [place] <= 1.005 (1.001-1.035) Urine Protein NEGATIVE (NEGATIVE) mg/dL Urine Glucose (UA) NEGATIVE (NEGATIVE) mg/dL Urine Ketones NEGATIVE (NEGATIVE) mg/dL Urine Occult Blood NEGATIVE (NEGATIVE) Urine Nitrite NEGATIVE (NEGATIVE) Urine Bilirubin NEGATIVE (NEGATIVE) Urine Urobilinogen 0.2 (<2.0) EU/dL Ur Leukocyte Esterase NEGATIVE (NEGATIVE) 04/23/19 04/23/19 Range/Units 06:15 06:45 WBC (4.0-11.0) K/uL RBC (4.50-5.90) M/uL Hgb (13.0-17.0) g/dL Hct (38.0-50.0) % MCV (80.0-98.0) fL MCH (27.0-32.0) pg MCHC (31.0-37.0) g/dL RDW Std Deviation (28.0-62.0) fl RDW Coeff of [place] (11.0-15.0) % Plt Count (150-400) K/uL MPV (7.40-12.00) fL Neut % (Auto) (48.0-80.0) % Lymph % (Auto) (16.0-40.0) % [place] % (Auto) (0.0-15.0) % Eos % (Auto) (0.0-7.0) % Baso % (Auto) (0.0-1.5) % Neut # (Auto) (1.4-5.7) K/uL Lymph # (Auto) (0.6-2.4) K/uL [place] # (Auto) (0.0-0.8) K/uL Eos # (Auto) (0.0-0.7) K/uL Baso # (Auto) (0.0-0.1) K/uL Nucleated RBC % /100WBC Nucleated RBCs # K/uL ABG pH (7.35-7.45) ABG pCO2 (35-45) mmHG ABG pO2 (75-100) mmHG ABG HCO3 (22-26) mEq/L ABG Total CO2 ABG Base Excess (-2.0-2.0) Sodium (136-148) mmol/L Potassium (3.5-5.1) mmol/L Chloride (98-107) mmol/L Carbon Dioxide (21.0-32.0) mmol/L BUN (7.0-18.0) mg/dL Creatinine (0.8-1.3) mg/dL Est Cr Clr Drug Dosing Estimated GFR (MDRD) ml/min Glucose (74-106) mg/dL POC Glucose 426 H (60-110) mg/dL Calcium (8.5-10.1) mg/dL Total Bilirubin (0.2-1.0) mg/dL AST (15-37) IU/L ALT (14-63) IU/L Alkaline Phosphatase (46-116) U/L Creatine Kinase (26-308) U/L Troponin I < 0.050 (0.000-0.056) ng/mL Total Protein (6.4-8.2) g/dL Albumin (3.4-5.0) g/dL Globulin (2.6-4.0) g/dL Albumin/Globulin Ratio (0.9-1.6) Urine Color Urine Appearance Urine pH (5.0-8.0) Ur Specific [place] (1.001-1.035) Urine Protein (NEGATIVE) mg/dL Urine Glucose (UA) (NEGATIVE) mg/dL Urine Ketones (NEGATIVE) mg/dL Urine Occult Blood (NEGATIVE) Urine Nitrite (NEGATIVE) Urine Bilirubin (NEGATIVE) Urine Urobilinogen (<2.0) EU/dL Ur Leukocyte Esterase (NEGATIVE) Med Orders - Current: Current Medications Sodium Chloride (Normal Saline) 1,000 mls @ 125 mls/hr IV ASDIRECTED [facility] Last Admin: 04/23/19 00:52 Dose: 125 mls/hr Insulin Aspart (Novolog) 0 unit SUBCUT TIDAC [facility]; Protocol Last Admin: 04/23/19 06:33 Dose: Not Given Sodium Chloride (Saline Flush) 10 ml FLUSH ASDIRECTED PRN PRN Reason: Keep Vein Open Sodium Chloride (Saline Flush) 2.5 ml FLUSH ASDIRECTED PRN PRN Reason: Keep Vein Open Discontinued Medications Sodium Chloride (Normal Saline) 1,000 mls @ 999 mls/hr IV .Bolus ONE Stop: 04/23/19 00:12 Last Admin: 04/22/19 23:44 Dose: 999 mls/hr Insulin Human Isoph/Insulin Regular (Novolin 70-30) 0 unit SUBCUT ONETIME ONE Stop: 04/23/19 06:30 Last Admin: 04/23/19 06:51 Dose: 23 units Methylprednisolone Sodium Succinate (Solu-Medrol) 125 mg IVPUSH ONETIME ONE Stop: 04/22/19 18:39 Last Admin: 04/22/19 18:50 Dose: 125 mg - Exam General: Alert, Oriented Lungs: Clear to Auscultation, Normal Respiratory Effort Cardiovascular: Regular Rate, Regular Rhythm GI/Abdominal Exam: Normal Bowel Sounds, Soft, Non-Tender, No Distention - Problem List Review Problem List Initiated/Reviewed/Updated: Yes - Plan Plan:: Assessment: 1. Syncopal episode. 2. Hyperglycemia. 3. CKD. 4. Past medical history of HIV, DM, COPD and pulmonary hypertension. Plan: 1. For syncopal episode, CT and CXR ordered yesterday were negative for any acute processes. Patient reports no dizziness or headache today. 2. For hyperglycemia, will monitor blood glucose. Patient on sliding-scale insulin. 3. For past medical history, will continue home medications.
[2019-04-23 11:51] LABS: CARBON DIOXIDE,CO2 17.1 mmol/L (21.0-32.0); POTASSIUM,K 4.3 mmol/L (3.5-5.1)
[2019-04-23] MEDS ORDERED: Ondansetron 4 MG Tab.DIS PO PRN (15:04)
[2019-04-23] MEDS ORDERED: EMTRICITABINE PO SCH (21:00)
[2019-04-23] MEDS ORDERED: Mirtazapine 15 MG Tab PO SCH (21:00)
[2019-04-23] MEDS ORDERED: EFAVIRENZ PO SCH (21:00)
[2019-04-23] MEDS ORDERED: TENOFO PO SCH (21:00)
[2019-04-23] MEDS ORDERED: Insuln Aspart Prot/Insulin Aspart 100 Units/ML 3 ML FlexPen SUBCUT SCH (21:30)
[2019-04-24 04:14] VITALS: BP 107/61; PULSE 64
[2019-04-24 06:43] LABS: CARBON DIOXIDE,CO2 19.3 mmol/L (21.0-32.0); POTASSIUM,K 4.3 mmol/L (3.5-5.1)
[2019-04-24] MEDS ORDERED: Fluticasone/Salmeterol 250-50 MCG Inhalation Powder 14/Diskus INH STA (07:49)
[2019-04-24] MEDS ORDERED: Albuterol/Ipratropium 3.0-0.5 MG/3 ML Neb Soln NEB ONE (07:49)
[2019-04-24] MEDS: Insulin Aspart 100 Units/ML 3 ML Pen SUBCUT SCH (07:55)
[2019-04-24] MEDS ORDERED: metFORMIN 500 MG Tab.ER PO SCH (08:00)
[2019-04-24] MEDS ORDERED: Insuln Aspart Prot/Insulin Aspart 100 Units/ML 3 ML FlexPen SUBCUT SCH (08:00)
--- NOTE | 2019-04-24 09:10 | PCM.DCSUM1 ---
<Yuriy Handy M - Last Filed: 04/24/19 09:03> Discharge Summary - Hospital Course Free Text/Narrative:: Patient is a 53-year-old male who was admitted for a syncopal event. He has a PMH of HIV, DM, COPD, CKD and pulmonary hypertension. Patient reported that he was outside for a prolonged period of time on day of admission and "ran out of oxygen." He then went to find a shaded area to sit under and did not provide any further details. Patient started on IV fluids. CT head and CXR were negative. Troponins were trended and negative x 3. Patient reported improvement in symptoms and denied having any further episodes of dizziness, chest pain or syncope. Patient to continue home insulin regimen of novolog 70/30 - 23 units in AM and 28 units PM. - Discharge Data Discharge Date: 04/24/19 Discharge Disposition: Home, Self-Care 01 Condition: Fair - Patient Summary/Data Consults: Consultations 04/24/19 07:04 Consult to Physical Therapy [PT Evaluation and Treatment] [CONS] Routine - Patient Instructions Diet: Diabetic Diet Activity: As Tolerated - Discharge Plan *PRESCRIPTION DRUG MONITORING PROGRAM REVIEWED*: Not Applicable *COPY OF PRESCRIPTION DRUG MONITORING REPORT IN PATIENT JAMAR: Not Applicable Home Medications: Home Meds Efavirenz/Emtricitabine/Tenofo [Atripla] 1 tab PO BEDTIME 03/06/14 [History] Mirtazapine 30 mg PO BEDTIME 01/28/18 [History] Albuterol/Ipratropium [Combivent Respimat] QID 07/28/18 [History] Albuterol/Ipratropium [DuoNeb 3.0-0.5 MG/3 ML] QID 07/28/18 [History] Budesonide/Formoterol [Symbicort 160-4.5 MCG] 2 inh BID 07/28/18 [History] Hydrocodone/Acetaminophen [Hydrocodon-Acetaminophen 5-325] 1 each PO 12 PRN #12 tablet 07/28/18 [Rx] Ondansetron [Zofran ODT] 4 mg PO Q6H PRN #10 tab.dis 09/02/18 [Rx] metFORMIN [Glucophage XR] 500 mg PO DAILY 04/23/19 [History] Patient Handouts: Nonspecific Chest Pain, [id number], Syncope, [id number] Referrals: Arlen Wiley NP [Ordering Only Provider] - () Lilian Avila MD [Ordering Only Provider] - 04/27/19 9:15 am (Arlen Wiley is still on maturnity leave, which is why you were scheduled with Dr. Avila) - Discharge Summary/Plan Comment DC Time >30 min.: No - Patient Data Vitals - Most Recent: Last Vital Signs Temp 97.8 F 04/24/19 04:00 Pulse 64 04/24/19 04:00 Resp 20 04/24/19 04:00 BP 107/61 04/24/19 04:00 Pulse Ox 89 L 04/24/19 04:00 Weight - Most Recent: 79.379 kg I&O - Last 24 hours: Intake & Output 04/23/19 04/24/19 04/24/19 22:59 06:59 14:59 Intake Total 3130 1040 Output Total 1925 975 Balance 1205 65 Lab Results - Last 24 hrs: Laboratory Results - last 24 hr 04/23/19 04/23/19 04/23/19 Range/Units 11:28 11:40 17:02 Sodium 134 L (136-148) mmol/L Potassium 4.3 (3.5-5.1) mmol/L Chloride 105 (98-107) mmol/L Carbon Dioxide 17.1 L (21.0-32.0) mmol/L BUN 20 H (7.0-18.0) mg/dL Creatinine 1.5 H (0.8-1.3) mg/dL Est Cr Clr Drug Dosing 56.30 mL/min Estimated GFR (MDRD) 48.8 ml/min Glucose 424 H (74-106) mg/dL POC Glucose 397 H 347 H (60-110) mg/dL Calcium 8.0 L (8.5-10.1) mg/dL 04/23/19 04/24/19 04/24/19 Range/Units 20:43 00:36 06:10 Sodium 142 (136-148) mmol/L Potassium 4.3 (3.5-5.1) mmol/L Chloride 112 H (98-107) mmol/L Carbon Dioxide 19.3 L (21.0-32.0) mmol/L BUN 24 H (7.0-18.0) mg/dL Creatinine 1.4 H (0.8-1.3) mg/dL Est Cr Clr Drug Dosing 60.32 mL/min Estimated GFR (MDRD) 52.8 ml/min Glucose 115 H (74-106) mg/dL POC Glucose 413 H 300 H (60-110) mg/dL Calcium 8.2 L (8.5-10.1) mg/dL 04/24/19 Range/Units 06:36 Sodium (136-148) mmol/L Potassium (3.5-5.1) mmol/L Chloride (98-107) mmol/L Carbon Dioxide (21.0-32.0) mmol/L BUN (7.0-18.0) mg/dL Creatinine (0.8-1.3) mg/dL Est Cr Clr Drug Dosing mL/min Estimated GFR (MDRD) ml/min Glucose (74-106) mg/dL POC Glucose 144 H (60-110) mg/dL Calcium (8.5-10.1) mg/dL VENUS Results - Last 24 hrs: Microbiology 04/22/19 19:40 Aerobic Blood Culture - Preliminary Blood - Venous - Lab Draw NO GROWTH AFTER 1 DAY Anaerobic Blood Culture - Preliminary NO GROWTH AFTER 1 DAY 04/22/19 18:45 Aerobic Blood Culture - Preliminary Blood - Venous NO GROWTH AFTER 1 DAY Anaerobic Blood Culture - Preliminary NO GROWTH AFTER 1 DAY Med Orders - Current: Current Medications Insulin Aspart (Novolog Mix 70-30) 23 unit SUBCUT DAILY@0800 [facility] Insulin Aspart (Novolog Mix 70-30) 28 unit SUBCUT DAILY@1700 [facility] Last Admin: 04/23/19 22:23 Dose: 28 units Metformin HCl (Glucophage Xr) 500 mg PO WITHBREAKFAST [facility] Last Admin: 04/24/19 08:28 Dose: 500 mg Mirtazapine (Remeron) 30 mg PO BEDTIME [facility] Last Admin: 04/23/19 20:26 Dose: 30 mg Ondansetron HCl (Zofran Odt) 4 mg PO Q6H PRN PRN Reason: Nausea Budesonide/Formoterol 160-4.5 Mcg/Puff 6 Gm Inhaler (Symbicort) 0 each INH BID [facility] Last Admin: 04/23/19 20:26 Dose: Not Given Efavirenz/Emtricitabine/Tenofo [Atripla] 1 each PO BEDTIME [facility] Last Admin: 04/23/19 20:25 Dose: Not Given Fluticasone/Salmeterol (Advair Diskus 250-50) 1 puff INH BID [facility] Sodium Chloride (Saline Flush) 10 ml FLUSH ASDIRECTED PRN PRN Reason: Keep Vein Open Sodium Chloride (Saline Flush) 2.5 ml FLUSH ASDIRECTED PRN PRN Reason: Keep Vein Open Discontinued Medications Albuterol/Ipratropium (Duoneb 3.0-0.5 Mg/3 Ml) 3 ml NEB ONETIME ONE Stop: 04/24/19 07:50 Last Admin: 04/24/19 08:02 Dose: 3 ml Sodium Chloride (Normal Saline) 1,000 mls @ 999 mls/hr IV .Bolus ONE Stop: 04/23/19 00:12 Last Admin: 04/22/19 23:44 Dose: 999 mls/hr Sodium Chloride (Normal Saline) 1,000 mls @ 125 mls/hr IV ASDIRECTED [facility] Last Admin: 04/23/19 18:31 Dose: 125 mls/hr Insulin Aspart (Novolog) 0 unit SUBCUT TIDAC [facility]; Protocol Last Admin: 04/24/19 07:55 Dose: Not Given Insulin Human Isoph/Insulin Regular (Novolin 70-30) 0 unit SUBCUT ONETIME ONE Stop: 04/23/19 06:30 Last Admin: 04/23/19 06:51 Dose: 23 units Methylprednisolone Sodium Succinate (Solu-Medrol) 125 mg IVPUSH ONETIME ONE Stop: 04/22/19 18:39 Last Admin: 04/22/19 18:50 Dose: 125 mg Fluticasone/Salmeterol (Advair Diskus 250-50) 1 puff INH NOW STA Stop: 04/24/19 07:50 Last Admin: 04/24/19 08:02 Dose: 1 inhalation - Exam General: Reports: Alert, Oriented, Cooperative Lungs: Reports: Clear to Auscultation, Other (faint wheezes appreciated ) Cardiovascular: Reports: Regular Rate, Regular Rhythm GI/Abdominal Exam: Normal Bowel Sounds, Soft, Non-Tender, No Distention Extremities: Other (no lower extremity edema appreciated bilaterally) <Jasbir Matos - Last Filed: 04/24/19 19:52> Discharge Summary - Patient Summary/Data Consults: Consultations 04/24/19 07:04 Consult to Physical Therapy [PT Evaluation and Treatment] [CONS] Routine - Patient Data Vitals - Most Recent: Last Vital Signs Temp 36.6 C 04/24/19 04:00 Pulse 64 04/24/19 04:00 Resp 20 04/24/19 04:00 BP 107/61 04/24/19 04:00 Pulse Ox 89 L 04/24/19 04:00 I&O - Last 24 hours: Intake & Output 04/24/19 04/24/19 04/24/19 06:59 14:59 22:59 Intake Total 1040 240 Output Total 975 Balance 65 240 Lab Results - Last 24 hrs: Laboratory Results - last 24 hr 04/23/19 04/24/19 04/24/19 Range/Units 20:43 00:36 06:10 Sodium 142 (136-148) mmol/L Potassium 4.3 (3.5-5.1) mmol/L Chloride 112 H (98-107) mmol/L Carbon Dioxide 19.3 L (21.0-32.0) mmol/L BUN 24 H (7.0-18.0) mg/dL Creatinine 1.4 H (0.8-1.3) mg/dL Est Cr Clr Drug Dosing 60.32 mL/min Estimated GFR (MDRD) 52.8 ml/min Glucose 115 H (74-106) mg/dL POC Glucose 413 H 300 H (60-110) mg/dL Calcium 8.2 L (8.5-10.1) mg/dL 04/24/19 Range/Units 06:36 Sodium (136-148) mmol/L Potassium (3.5-5.1) mmol/L Chloride (98-107) mmol/L Carbon Dioxide (21.0-32.0) mmol/L BUN (7.0-18.0) mg/dL Creatinine (0.8-1.3) mg/dL Est Cr Clr Drug Dosing mL/min Estimated GFR (MDRD) ml/min Glucose (74-106) mg/dL POC Glucose 144 H (60-110) mg/dL Calcium (8.5-10.1) mg/dL VENUS Results - Last 24 hrs: Microbiology 04/22/19 19:40 Aerobic Blood Culture - Preliminary Blood - Venous - Lab Draw NO GROWTH AFTER 2 DAYS Anaerobic Blood Culture - Preliminary NO GROWTH AFTER 2 DAYS 04/22/19 18:45 Aerobic Blood Culture - Preliminary Blood - Venous NO GROWTH AFTER 2 DAYS Anaerobic Blood Culture - Preliminary NO GROWTH AFTER 2 DAYS Med Orders - Current: Current Medications Discontinued Medications Albuterol/Ipratropium (Duoneb 3.0-0.5 Mg/3 Ml) 3 ml NEB ONETIME ONE Stop: 04/24/19 07:50 Last Admin: 04/24/19 08:02 Dose: 3 ml Sodium Chloride (Normal Saline) 1,000 mls @ 999 mls/hr IV .Bolus ONE Stop: 04/23/19 00:12 Last Admin: 04/22/19 23:44 Dose: 999 mls/hr Sodium Chloride (Normal Saline) 1,000 mls @ 125 mls/hr IV ASDIRECTED [facility] Last Admin: 04/23/19 18:31 Dose: 125 mls/hr Insulin Aspart (Novolog) 0 unit SUBCUT TIDAC [facility]; Protocol Last Admin: 04/24/19 07:55 Dose: Not Given Insulin Aspart (Novolog Mix 70-30) 23 unit SUBCUT DAILY@0800 [facility] Last Admin: 04/24/19 09:14 Dose: 23 units Insulin Aspart (Novolog Mix 70-30) 28 unit SUBCUT DAILY@1700 [facility] Last Admin: 04/23/19 22:23 Dose: 28 units Insulin Human Isoph/Insulin Regular (Novolin 70-30) 0 unit SUBCUT ONETIME ONE Stop: 04/23/19 06:30 Last Admin: 04/23/19 06:51 Dose: 23 units Metformin HCl (Glucophage Xr) 500 mg PO WITHBREAKFAST [facility] Last Admin: 04/24/19 08:28 Dose: 500 mg Methylprednisolone Sodium Succinate (Solu-Medrol) 125 mg IVPUSH ONETIME ONE Stop: 04/22/19 18:39 Last Admin: 04/22/19 18:50 Dose: 125 mg Mirtazapine (Remeron) 30 mg PO BEDTIME [facility] Last Admin: 04/23/19 20:26 Dose: 30 mg Ondansetron HCl (Zofran Odt) 4 mg PO Q6H PRN PRN Reason: Nausea Budesonide/Formoterol 160-4.5 Mcg/Puff 6 Gm Inhaler (Symbicort) 0 each INH BID [facility] Last Admin: 04/24/19 10:05 Dose: Not Given Efavirenz/Emtricitabine/Tenofo [Atripla] 1 each PO BEDTIME [facility] Last Admin: 04/23/19 20:25 Dose: Not Given Fluticasone/Salmeterol (Advair Diskus 250-50) 1 puff INH NOW STA Stop: 04/24/19 07:50 Last Admin: 04/24/19 08:02 Dose: 1 inhalation Fluticasone/Salmeterol (Advair Diskus 250-50) 1 puff INH BID [facility] Sodium Chloride (Saline Flush) 10 ml FLUSH ASDIRECTED PRN PRN Reason: Keep Vein Open Sodium Chloride (Saline Flush) 2.5 ml FLUSH ASDIRECTED PRN PRN Reason: Keep Vein Open - Free Text/Narrative Note: I have evaluated the patient. I have discussed findings and treatment plan with resident. I agree with the assessment and plan outlined in the following note.
[2019-04-24] MEDS ORDERED: Fluticasone/Salmeterol 250-50 MCG Inhalation Powder 14/Diskus INH SCH (21:00)
== END 2019-04-24 11:00 | disposition home or self-care (01) ==
LOC: MW.ED 18:22 → MW.MS 19:23
PROVIDERS: ADMIT Internal Medicine; ATTEND Internal Medicine
DX: R55 Syncope and collapse (principal); E11.9 Type 2 diabetes mellitus without complications; J44.9 Chronic obstructive pulmonary disease, unspecified; F32.9 Major depressive disorder, single episode, unspecified; R07.9 Chest pain, unspecified; R51 Headache; Z21 Asymptomatic human immunodeficiency virus [HIV] infection status; Z99.81 Dependence on supplemental oxygen; Z88.0 Allergy status to penicillin; Z88.2 Allergy status to sulfonamides; Z79.899 Other long term (current) drug therapy; Z79.51 Long term (current) use of inhaled steroids; Z87.891 Personal history of nicotine dependence
CPT/HCPCS: 36415; 36600; 70450; 71045; 80048; 80053; 81003; 82550; 82803; 82962; 84484; 85025; 87040; 93005; 94640; 94664; 96374; 99285; A9270; J1815; J2930; J7040; 96361; 99284; G0378; J7620-GY

== ENCOUNTER 2019-11-23 02:41 | Emergency (ER) | payer MEDICARE, MEDICAID ==
--- NOTE | 2019-11-23 02:46 | EDM.PDOC ---
ED HPI GENERAL MEDICAL PROBLEM - General Chief Complaint: General Stated Complaint: TROUBLE SLEEPING Time Seen by Provider: 11/23/19 02:45 Source of Information: Reports: Patient - History of Present Illness INITIAL COMMENTS - FREE TEXT/NARRATIVE: The patient is a 54-year-old male who presents to the ER and at approximately 2: 30 in the morning because of insomnia. The patient is very vague about all of his symptomology. He only states that he "cannot sleep". Attempting to ask any specifics about his insomnia he will not provide anything other than his neighbors will not let him sleep and he has to pound on the wall. When I asked specifically if there is anything else he states "there are lots of things". However he will not elucidate. He is very vague about any discussions he has had or has not had with his primary care physician concerning this topic. He might have taken some type of [id number] sleep aid but he cannot remember what it was called or if even took it. He denies having any prescription medications for this. - Related Data Allergies Allergy/AdvReac Type Severity Reaction Status Date / Time Penicillins Allergy doesn't Verified 11/23/19 03:01 know sulfamethoxazole AdvReac Nausea and Verified 11/23/19 03:01 [From Bactrim] Vomiting Home Meds: Home Meds Albuterol/Ipratropium [Combivent Respimat] QID 07/28/18 [History] Albuterol/Ipratropium [DuoNeb 3.0-0.5 MG/3 ML] QID 07/28/18 [History] Budesonide/Formoterol [Symbicort 160-4.5 MCG] 2 inh BID 07/28/18 [History] Ondansetron [Zofran ODT] 4 mg PO Q6H PRN #10 tab.dis 09/02/18 [Rx] metFORMIN [Glucophage XR] 500 mg PO DAILY 04/23/19 [History] Past Medical History HEENT History: Reports: None Cardiovascular History: Reports: SOB on Exertion Other Cardiovascular History: reports AV shunt Respiratory History: Reports: COPD, SOB Other Respiratory History: Pulmonary hypertension and pulmonary fibrosis. Gastrointestinal History: Reports: Cholelithiasis, Pancreatitis Other Gastrointestinal History: nausea Genitourinary History: Reports: Renal Disease Other Genitourinary History: reports 1 kidney functioning Other Musculoskeletal History: Sclerotic bone lesions of pelvis and spine on prev CT's. Neurological History: Reports: None Psychiatric History: Reports: Depression Endocrine/Metabolic History: Reports: Diabetes, Type II Hematologic History: Reports: None Immunologic History: Reports: HIV Other Immunologic History: From previous history Oncologic (Cancer) History: Reports: None Dermatologic History: Reports: None - Infectious Disease History Infectious Disease History: Reports: Chicken Pox, HIV-Human Immunodeficiency Virus - Past Surgical History Head Surgeries/Procedures: Reports: None Cardiovascular Surgical History: Reports: None Respiratory Surgical History: Reports: None GI Surgical History: Reports: None Male Surgical History: Reports: None Endocrine Surgical History: Reports: None Social & Family History - Family History Family Medical History: Noncontributory Cardiac: Reports: NE Musculoskeletal: Reports: Arthritis Neurological: Reports: CVA Psychiatric: Reports: None Endocrine/Metabolic: Reports: Diabetes, type II - Caffeine Use Caffeine Use: Reports: Coffee Caffeine Use Comment: 1 cup daily - Living Situation & Occupation Living situation: Reports: Alone, Single Occupation: Unemployed ED ROS GENERAL - Review of Systems Review Of Systems: Unable To Obtain Reason Not Obtained: Other than insomnia the patient is very vague ED EXAM, GENERAL - Physical Exam Exam: See Below Free Text/Narrative:: Constitutional: No acute distress, Non-toxic appearance, chronically ill- appearing. HEENT: Normocephalic, Atraumatic, EOMI Neck: Normal range of motion, No stridor, trachea midline Respiratory: No respiratory distress, No tachypnea Cardiovascular: Deferred Gastrointestinal: Deferred Genital / Urinary: Deferred Musculoskeletal: All four extremities present and atraumatic Back: FROM Integument: Warm, Dry, Color is ethnicity appropriate, No rash. Neuro: Alert, Awake, oriented x3, cranial nerves grossly intact, no focal deficits noted Psych: Not psychotic but agitated Course - Vital Signs Text/Narrative:: I attempted to ask standard questions concerning the patient's insomnia but he continues to be extremely vague. I explained to him that if this insomnia secondary to his neighbors being loud there is nothing I am going to be able to do about it and he will need to talk to the police, possibly his neighbors, etc. as this is outside the realm of any medical conditions. When he specifically stated they were other things he will not elucidate about that. He would not talk about any discussions he might or might not have had with his primary care physician. I offered him a short course of prescription sleep aids and he could see if it helps and then follow-up with his primary care physician but he states that the medications will not help. He will not tell me how he knows this. The patient is not psychotic, and at this time, there are definitely no signs of an emergency. Given that the patient is not cooperating for whatever reason, he will be discharged with no prescriptions. Last Recorded V/S: Last Vital Signs Temp 37.0 C 11/23/19 02:45 Pulse 91 11/23/19 02:45 Resp 14 11/23/19 02:45 BP 132/66 11/23/19 02:45 Pulse Ox 91 L 11/23/19 02:45 Departure - Departure Time of Disposition: 03:01 Disposition: Home, Self-Care 01 Condition: Good Clinical Impression: Insomnia - Discharge Information *PRESCRIPTION DRUG MONITORING PROGRAM REVIEWED*: Not Applicable *COPY OF PRESCRIPTION DRUG MONITORING REPORT IN PATIENT JAMAR: Not Applicable Referrals: Lilian Avila MD [Primary Care Provider] - Forms: ED Department Discharge Additional Instructions: The following information is given to patients seen in the emergency department who are being discharged to home. This information is to outline your options for follow-up care. We provide all patients seen in our emergency department with a follow-up referral. The need for follow-up, as well as the timing and circumstances, are variable depending upon the specifics of your emergency department visit. If you don't have a primary care physician on staff, we will provide you with a referral. We always advise you to contact your personal physician following an emergency department visit to inform them of the circumstance of the visit and for follow-up with them and/or the need for any referrals to a consulting specialist. The emergency department will also refer you to a specialist when appropriate. This referral assures that you have the opportunity for follow-up care with a specialist. All of these measure are taken in an effort to provide you with optimal care, which includes your follow-up. Under all circumstances we always encourage you to contact your private physician who remains a resource for coordinating your care. When calling for follow-up care, please make the office aware that this follow-up is from your recent emergency room visit. If for any reason you are refused follow-up, please contact the [facility] Emergency Department at and asked to speak to the emergency department charge nurse. [facility] [address] [place] [address] [facility] [address] [place] [id number] Sepsis Event Note - Focused Exam Vital Signs: Vital Signs Temp Pulse Resp BP Pulse Ox 11/23/19 02:45 37.0 C 91 14 132/66 91 L Date Exam was Performed: 11/23/19 Time Exam was Performed: 03:04
[2019-11-23 03:20] VITALS: BP 112/77; PULSE 54
== END 2019-11-23 03:14 | disposition home or self-care (01) ==
LOC: MW.ED 02:41
DX: G47.00 Insomnia, unspecified (principal); E11.9 Type 2 diabetes mellitus without complications; B20 Human immunodeficiency virus [HIV] disease; J44.9 Chronic obstructive pulmonary disease, unspecified; Z88.0 Allergy status to penicillin; Z79.84 Long term (current) use of oral hypoglycemic drugs; Z88.2 Allergy status to sulfonamides
CPT/HCPCS: 99283

== ENCOUNTER 2021-03-24 17:24 | Inpatient (IN) | payer MEDICARE, MEDICAID ==
--- NOTE | 2021-03-24 17:38 | EDM.PDOC ---
<David Maravilla - Last Filed: 03/24/21 19:17> ED HPI GENERAL MEDICAL PROBLEM - General Chief Complaint: General Stated Complaint: EMS Time Seen by Provider: 03/24/21 17:26 - History of Present Illness INITIAL COMMENTS - FREE TEXT/NARRATIVE: Patient is a 55-year-old male he has a history of oxygen dependent COPD, HIV, insulin-dependent diabetes. 911 was called for a well check by the staff at the hotel where the patient is staying. Police knocked on the door he unlocked the door but was unable to unlock the latch that would allow him to fully open the door. He tugged on the door repeatedly eventually the police had to break down the door. He is declining to answer any questions or provide any additional history. He would not shake his head or not for the police or EMS. They transported him here. For me the patient is very closed often he will not speak to me very much. He shakes his head in a negative fashion when asked if he has any physical complaints. He denies any medical problems he denies taking any current medications. He denies any auditory or visual hallucinations he denies any HI or SI. However he will not speak to me in any significant way. - Related Data Allergies Allergy/AdvReac Type Severity Reaction Status Date / Time Penicillins Allergy doesn't Verified 03/24/21 17:29 know sulfamethoxazole AdvReac Nausea and Verified 03/24/21 17:29 [From Bactrim] Vomiting Home Meds: Home Meds Albuterol/Ipratropium [Combivent Respimat] QID 07/28/18 [History] Albuterol/Ipratropium [DuoNeb 3.0-0.5 MG/3 ML] QID 07/28/18 [History] Budesonide/Formoterol [Symbicort 160-4.5 MCG] 2 inh BID 07/28/18 [History] Ondansetron [Zofran ODT] 4 mg PO Q6H PRN #10 tab.dis 09/02/18 [Rx] metFORMIN [Glucophage XR] 500 mg PO DAILY 04/23/19 [History] Past Medical History HEENT History: Reports: None Cardiovascular History: Reports: SOB on Exertion Other Cardiovascular History: reports AV shunt Respiratory History: Reports: COPD, SOB Other Respiratory History: Pulmonary hypertension and pulmonary fibrosis. Gastrointestinal History: Reports: Cholelithiasis, Pancreatitis Other Gastrointestinal History: nausea Genitourinary History: Reports: Renal Disease Other Genitourinary History: reports 1 kidney functioning Other Musculoskeletal History: Sclerotic bone lesions of pelvis and spine on prev CT's. Neurological History: Reports: None Psychiatric History: Reports: Depression Endocrine/Metabolic History: Reports: Diabetes, Type II Hematologic History: Reports: None Immunologic History: Reports: HIV Other Immunologic History: From previous history Oncologic (Cancer) History: Reports: None Dermatologic History: Reports: None - Infectious Disease History Infectious Disease History: Reports: Chicken Pox, HIV-Human Immunodeficiency Virus - Past Surgical History Head Surgeries/Procedures: Reports: None Cardiovascular Surgical History: Reports: None Respiratory Surgical History: Reports: None GI Surgical History: Reports: None Male Surgical History: Reports: None Endocrine Surgical History: Reports: None Social & Family History - Family History Family Medical History: No Pertinent Family History Cardiac: Reports: [place] Musculoskeletal: Reports: Arthritis Neurological: Reports: CVA Psychiatric: Reports: None Endocrine/Metabolic: Reports: Diabetes, type II - Caffeine Use Caffeine Use: Reports: Coffee Caffeine Use Comment: 1 cup daily - Living Situation & Occupation Living situation: Reports: Alone, Single Occupation: Unemployed ED ROS GENERAL - Review of Systems Review Of Systems: See Below Free Text/Narrative/Comment: General: No fever. Skin: No rash. Eyes: No vision problems. ENT: No sore throat. Neck: No neck stiffness. Respiratory: No shortness of breath. Cardiac: No chest pain. Gastrointestinal: No nausea, vomiting or abdominal pain. Urinary: No dysuria. Musculoskeletal: No myalgias/arthralgias. Neurologic: No headache. Shakes his head in a negative fashion to all questions but will not verbalize any answers ED EXAM, GENERAL - Physical Exam Exam: See Below Free Text/Narrative:: General Appearance: No acute distress, appears comfortable Skin: No rash HEENT: Normocephalic/atraumatic, sclera anicteric, mucous membranes moist Neck: Normal range of motion Chest and Lungs: Bilateral breath sounds, clear to auscultation Cardiovascular: Regular rate and rhythm, no murmur Abdomen: Soft, non-tender Back: Normal Musculoskeletal: No edema or tenderness Neurologic: Awake and alert moves all extremities well sensation appears grossly intact Psychiatric: Poor eye contact, minimal response to questioning Departure - Departure Disposition: Admitted As Inpatient 65 Clinical Impression: Encephalopathy, Liver failure - Discharge Information Referrals: PCP,None [Primary Care Provider] - Forms: ED Department Discharge Sepsis Event Note (ED) - Evaluation Sepsis Screening Result: No Definite Risk - Assessment/Plan Assessment:: 55-year-old male presenting with potential confusion. Prior charting also notes a significant history of the patient being vague and declining to answer questions in a meaningful way or elaborate on anything specific. Given reported confusion and patient's unusual affect here we will perform a relevant altered mental status evaluation. Patient consents to this by nodding his head. CBC CMP UDS are pending. Given the patient's history of HIV infection CT of the brain with and without contrast has been ordered to exclude ring-enhancing lesion. We will continue to monitor as well and continue to reassess. Patient has been calm and cooperative during his stay here. 1914: Labs with some signs of liver dysfunction including elevated bilirubin and ammonia level and banana bag to be given. Patient remains hemodynamically stable. His CT scan remains pending. Patient signed out to Dr. Aguirre pending result of ammonia level results of CT scan and final disposition. <James Aguirre - Last Filed: 03/24/21 22:59> Course - Vital Signs Text/Narrative:: 2055 hrs. the patient is not fighting or arguing. He is also not answering questions. He is awake. And while he has no asterixis he does seem to have an encephalopathy that keeps him from being able to comprehend the questions I asked. CT with and without contrast was unremarkable. Labs show a ammonia of 235 and bilirubin over 6. I tried to reach the number we have on file for his mother. There is no answering pad machine feeder and no answer. I called [facility] where he has in the past according to his past records been seen for infectious disease consultation. They had a different number for his mother and that number according to the service provider has been disconnected. I discussed the case with Dr. Marie and she agreed the patient might benefit from treatment of his pneumonia but wanted imaging to make sure there was no obstruction to his hepatic duct or common bile duct before she admitted here. Imaging ordered. Last Recorded V/S: Last Vital Signs Temp 36.6 C 03/24/21 18:47 Pulse 54 L 03/24/21 22:06 Resp 17 03/24/21 22:06 BP 150/84 H 03/24/21 22:06 Pulse Ox 95 03/24/21 22:06 - Orders/Labs/Meds Orders: Active Orders 24 hr Category Date Time Status Admission Status [Patient Status] [ADT] Stat ADT 03/24/21 22:57 Ordered Labs: Laboratory Tests 03/24/21 03/24/21 03/24/21 Range/Units 17:43 17:43 19:10 WBC 7.25 (4.0-11.0) K/uL RBC 3.89 L (4.50-5.90) M/uL Hgb 13.1 (13.0-17.0) g/dL Hct 36.3 L (38.0-50.0) % MCV 93.3 (80.0-98.0) fL MCH 33.7 H (27.0-32.0) pg MCHC 36.1 (31.0-37.0) g/dL RDW Std Deviation 53.2 (28.0-62.0) fl RDW Coeff of Blanche 16 H (11.0-15.0) % Plt Count 71 L (150-400) K/uL MPV 10.30 (7.40-12.00) fL Add Manual Diff YES Neutrophils % (Manual) 73 (48.0-80.0) % Lymphocytes % (Manual) 17 (16.0-40.0) % Monocytes % (Manual) 5 (0.0-15.0) % Eosinophils % (Manual) 2 (0.0-7.0) % Metamyelocytes % 2 % Myelocytes % 1 % Nucleated RBC % 0.8 /100WBC Absolute Seg Neuts 5.3 (1.4-5.7) Lymphocytes # (Manual) 1.2 (0.6-2.4) Monocytes # (Manual) 0.4 (0.0-0.8) Eosinophils # (Manual) 0.1 (0.0-0.7) Absolute Metamyelocyte 0.1 Absolute Myelocytes 0.1 Nucleated RBCs # 0 K/uL INR Sodium 142 (136-148) mmol/L Potassium 3.5 (3.5-5.1) mmol/L Chloride 109 H (98-107) mmol/L Carbon Dioxide 22.3 (21.0-32.0) mmol/L BUN 19 H (7.0-18.0) mg/dL Creatinine 1.7 H (0.8-1.3) mg/dL Est Cr Clr Drug Dosing TNP Estimated GFR (MDRD) 41.9 ml/min Glucose 173 H (74-106) mg/dL Calcium 8.3 L (8.5-10.1) mg/dL Total Bilirubin 6.6 H (0.2-1.0) mg/dL AST 43 H (15-37) IU/L ALT 31 (14-63) IU/L Alkaline Phosphatase 181 H (46-116) U/L Ammonia 203 H (19-54) ug/dL Total Protein 6.9 (6.4-8.2) g/dL Albumin 2.7 L (3.4-5.0) g/dL Globulin 4.2 H (2.6-4.0) g/dL Albumin/Globulin Ratio 0.6 L (0.9-1.6) Lipase (73-393) U/L Urine Opiates Screen (NEGATIVE) Ur Oxycodone Screen (NEGATIVE) Urine Methadone Screen (NEGATIVE) Ur Barbiturates Screen (NEGATIVE) Ur Phencyclidine Scrn (NEGATIVE) Ur Amphetamine Screen (NEGATIVE) U Methamphetamines Scrn (NEGATIVE) U Benzodiazepines Scrn (NEGATIVE) U Cocaine Metab Screen (NEGATIVE) U Marijuana (THC) Screen (NEGATIVE) Ethyl Alcohol < 3.0 mg/dL SARS-CoV-2 RNA ([facility]) (NEGATIVE) 03/24/21 03/24/21 03/24/21 Range/Units 19:10 21:00 22:24 WBC (4.0-11.0) K/uL RBC (4.50-5.90) M/uL Hgb (13.0-17.0) g/dL Hct (38.0-50.0) % MCV (80.0-98.0) fL MCH (27.0-32.0) pg MCHC (31.0-37.0) g/dL RDW Std Deviation (28.0-62.0) fl RDW Coeff of Blanche (11.0-15.0) % Plt Count (150-400) K/uL MPV (7.40-12.00) fL Add Manual Diff Neutrophils % (Manual) (48.0-80.0) % Lymphocytes % (Manual) (16.0-40.0) % Monocytes % (Manual) (0.0-15.0) % Eosinophils % (Manual) (0.0-7.0) % Metamyelocytes % % Myelocytes % % Nucleated RBC % /100WBC Absolute Seg Neuts (1.4-5.7) Lymphocytes # (Manual) (0.6-2.4) Monocytes # (Manual) (0.0-0.8) Eosinophils # (Manual) (0.0-0.7) Absolute Metamyelocyte Absolute Myelocytes Nucleated RBCs # K/uL INR 1.61 Sodium (136-148) mmol/L Potassium (3.5-5.1) mmol/L Chloride (98-107) mmol/L Carbon Dioxide (21.0-32.0) mmol/L BUN (7.0-18.0) mg/dL Creatinine (0.8-1.3) mg/dL Est Cr Clr Drug Dosing Estimated GFR (MDRD) ml/min Glucose (74-106) mg/dL Calcium (8.5-10.1) mg/dL Total Bilirubin (0.2-1.0) mg/dL AST (15-37) IU/L ALT (14-63) IU/L Alkaline Phosphatase (46-116) U/L Ammonia (19-54) ug/dL Total Protein (6.4-8.2) g/dL Albumin (3.4-5.0) g/dL Globulin (2.6-4.0) g/dL Albumin/Globulin Ratio (0.9-1.6) Lipase 21 L (73-393) U/L Urine Opiates Screen (NEGATIVE) Ur Oxycodone Screen (NEGATIVE) Urine Methadone Screen (NEGATIVE) Ur Barbiturates Screen (NEGATIVE) Ur Phencyclidine Scrn (NEGATIVE) Ur Amphetamine Screen (NEGATIVE) U Methamphetamines Scrn (NEGATIVE) U Benzodiazepines Scrn (NEGATIVE) U Cocaine Metab Screen (NEGATIVE) U Marijuana (THC) Screen (NEGATIVE) Ethyl Alcohol mg/dL SARS-CoV-2 RNA ([facility]) NEGATIVE (NEGATIVE) 03/24/21 Range/Units 22:47 WBC (4.0-11.0) K/uL RBC (4.50-5.90) M/uL Hgb (13.0-17.0) g/dL Hct (38.0-50.0) % MCV (80.0-98.0) fL MCH (27.0-32.0) pg MCHC (31.0-37.0) g/dL RDW Std Deviation (28.0-62.0) fl RDW Coeff of Blanche (11.0-15.0) % Plt Count (150-400) K/uL MPV (7.40-12.00) fL Add Manual Diff Neutrophils % (Manual) (48.0-80.0) % Lymphocytes % (Manual) (16.0-40.0) % Monocytes % (Manual) (0.0-15.0) % Eosinophils % (Manual) (0.0-7.0) % Metamyelocytes % % Myelocytes % % Nucleated RBC % /100WBC Absolute Seg Neuts (1.4-5.7) Lymphocytes # (Manual) (0.6-2.4) Monocytes # (Manual) (0.0-0.8) Eosinophils # (Manual) (0.0-0.7) Absolute Metamyelocyte Absolute Myelocytes Nucleated RBCs # K/uL INR Sodium (136-148) mmol/L Potassium (3.5-5.1) mmol/L Chloride (98-107) mmol/L Carbon Dioxide (21.0-32.0) mmol/L BUN (7.0-18.0) mg/dL Creatinine (0.8-1.3) mg/dL Est Cr Clr Drug Dosing Estimated GFR (MDRD) ml/min Glucose (74-106) mg/dL Calcium (8.5-10.1) mg/dL Total Bilirubin (0.2-1.0) mg/dL AST (15-37) IU/L ALT (14-63) IU/L Alkaline Phosphatase (46-116) U/L Ammonia (19-54) ug/dL Total Protein (6.4-8.2) g/dL Albumin (3.4-5.0) g/dL Globulin (2.6-4.0) g/dL Albumin/Globulin Ratio (0.9-1.6) Lipase (73-393) U/L Urine Opiates Screen NEGATIVE (NEGATIVE) Ur Oxycodone Screen NEGATIVE (NEGATIVE) Urine Methadone Screen NEGATIVE (NEGATIVE) Ur Barbiturates Screen NEGATIVE (NEGATIVE) Ur Phencyclidine Scrn NEGATIVE (NEGATIVE) Ur Amphetamine Screen NEGATIVE (NEGATIVE) U Methamphetamines Scrn NEGATIVE (NEGATIVE) U Benzodiazepines Scrn NEGATIVE (NEGATIVE) U Cocaine Metab Screen NEGATIVE (NEGATIVE) U Marijuana (THC) Screen NEGATIVE (NEGATIVE) Ethyl Alcohol mg/dL SARS-CoV-2 RNA ([facility]) (NEGATIVE) Meds: Medications Discontinued Medications Generic Name Dose Route Start Last Admin Trade Name Freq PRN Reason Stop Dose Admin Multivitamins/Minerals 10 ml/ 1,011.2 mls @ 500 mls/min 03/24/21 19:03 03/24/21 19:52 Thiamine HCl 100 mg/ Folic IV 03/24/21 19:05 500 mls/min Acid 1 mg/ Sodium Chloride ONETIME ONE Administration Iopamidol 50 ml 03/24/21 18:33 03/24/21 18:35 Iopamidol 755 Mg/Ml 50 Ml Bottle IV 03/24/21 18:34 50 ml ONETIME STA Administration Iopamidol 50 ml 03/24/21 21:38 03/24/21 21:39 Iopamidol 755 Mg/Ml 500 Ml Multipack Bottle IVPUSH 03/24/21 21:39 50 ml ONETIME STA Administration Lactulose 16.7 gm 03/24/21 20:45 03/24/21 21:33 Lactulose Soln 10 Gm/15 Ml 15 Ml Ud Cup PO 03/24/21 20:46 16.7 gm ONETIME ONE Administration Lactulose 10 gm 03/24/21 22:13 03/24/21 22:30 Lactulose Soln 10 Gm/15 Ml 15 Ml Ud Cup PO 03/24/21 22:14 10 gm ONETIME ONE Administration Lorazepam 1 mg 03/24/21 22:13 03/24/21 22:30 Lorazepam 2 Mg/Ml Sdv IVPUSH 03/24/21 22:14 1 mg ONETIME ONE Administration Departure - Departure Time of Disposition: 22:58 Condition: Good Sepsis Event Note (ED) - Focused Exam Vital Signs: Vital Signs Temp Pulse Resp BP Pulse Ox 03/24/21 22:06 54 L 17 150/84 H 95 03/24/21 19:36 59 L 17 147/80 H 96 03/24/21 18:47 36.6 C 94 18 126/64 99 03/24/21 17:30 36.2 C 60 16 131/77 97 - My Orders Last 24 Hours: My Active Orders 03/24/21 22:57 Admission Status [Patient Status] [ADT] Stat - Assessment/Plan Last 24 Hours: My Active Orders 03/24/21 22:57 Admission Status [Patient Status] [ADT] Stat
[2021-03-24 18:07] LABS: BLOOD UREA NITROGEN,BUN 19 mg/dL (7.0-18.0); CARBON DIOXIDE,CO2 22.3 mmol/L (21.0-32.0); CHLORIDE,CL 109 mmol/L (98-107); GLUCOSE RANDOM 173 mg/dL (74-106); POTASSIUM,K 3.5 mmol/L (3.5-5.1); SODIUM,NA 142 mmol/L (136-148)
[2021-03-24] MEDS ORDERED: Iopamidol 755 MG/ML 50 ML Bottle IV STA (18:33)
[2021-03-24] MEDS ORDERED: MVI, Adult with Vitamin K 10 ML, Thiamine 100 MG, Folic Acid 1 MG in Sodium Chloride 0.... IV ONE ×4 (19:03)
--- NOTE | 2021-03-24 20:34 | CT ---
For Patients: As a result of the Century Cures Act, medical imaging exams and procedure reports are released immediately into your electronic medical record. You may view this report before your referring provider. If you have questions, please contact your health care provider. CT HEAD WITH AND WITHOUT CONTRAST DATE: 03/24/2021 CLINICAL HISTORY: Patient with altered mental status, HIV infection. TECHNIQUE: Standard CT scanning of the head was performed. COMPARISON: 04/22/2019. FINDINGS: There is no intracranial hemorrhage. There is no territorial infarction. There is no abnormal enhancement in the brain. There are mild microangiopathic changes. There is diffuse parenchymal volume loss. There is no mass effect or midline shift. The calvarium is unremarkable. The orbits are unremarkable. The paranasal sinuses are unremarkable. The mastoid air cells are unremarkable. The soft tissues are unremarkable. IMPRESSION: 1. No intracranial hemorrhage, territorial infarction, or abnormal enhancement in the brain by CT. 2. Mild microangiopathic changes and diffuse parenchymal volume loss. Please note that all CT scans at this facility use dose modulation, iterative reconstruction, and/or weight-based dosing when appropriate to reduce radiation dose to as low as reasonably achievable. Dictated by: Teo Nicole MD @ 03/24/2021 20:32:43 (Electronically Signed)
[2021-03-24] MEDS ORDERED: Lactulose Soln 10 GM/15 ML 15 ML UD Cup PO ONE ×2 (20:45→22:13)
[2021-03-24] MEDS ORDERED: Iopamidol 755 MG/ML 500 ML Multipack Bottle IVPUSH STA (21:38)
[2021-03-24] MEDS ORDERED: LORazepam 2 MG/ML SDV IVPUSH ONE (22:13)
--- NOTE | 2021-03-24 22:46 | CT ---
Indication: Elevated bilirubin, encephalopathy Technique: Contrast enhanced axial CT imaging through the abdomen and pelvis. 50 mL Isovue 370 contrast agent was administered intravenously. Sagittal and coronal reconstructions are provided. Comparison: CT abdomen pelvis without contrast 09/02/2018 Findings: Suboptimal examination due to delayed phase of contrast enhancement and motion degradation in the upper abdomen and the lower abdomen. The liver demonstrates small size a nodular contour, consistent with cirrhosis. There is apparent gallbladder wall thickening/edema. There is no appreciable biliary dilatation. The spleen is mildly enlarged. The pancreas is grossly unremarkable. The adrenal glands and left kidney are unremarkable. The right kidney is markedly atrophic. The portal vein is patent. There is mild atherosclerosis of the distal aorta without aortic aneurysm. Borderline lymph nodes are noted in the noelle hepatis and scattered in the central mesentery. The stomach is unremarkable. There is approximately 2.0 x 2.5 cm heterogeneous soft tissue density arising in the medial aspect of the descending duodenum, concerning for mucosal lesion. Remainder of the small bowel is unremarkable. The appendix is noninflamed. There is no appreciable colonic wall thickening. Mild free fluid is noted layering in the pelvis. The urinary bladder is distended with excreted contrast material. There is no bladder wall thickening or evidence of mucosal lesion. The opacified left ureter is also unremarkable. No lymphadenopathy is appreciated in the pelvis. The osseous structures are unremarkable. The included lung bases are clear. Impression: 1. Small size and nodular contour of the liver, consistent with cirrhosis. Mild splenomegaly. Trace free fluid layering in the pelvis. 2. Gallbladder wall thickening/edema, concerning for cholecystitis. Follow-up ultrasound is recommended for confirmation. 3. A 2.5 cm heterogeneous soft tissue density in the medial aspect of the descending duodenum, concerning for mucosal lesion. Consider follow-up endoscopy. 4. Nonspecific borderline enlarged lymph nodes in the noelle hepatis and central mesentery. Please note that all CT scans at this facility use dose modulation, iterative reconstruction, and/or weight-based dosing when appropriate to reduce radiation dose to as low as reasonably achievable. Dictated by Juan Paz MD @ 03/24/2021 10:45:[address] Juan Paz @ Mar 24 2021 10:45PM
[2021-03-24] MEDS ORDERED: Albuterol/Ipratropium 3.0-0.5 MG/3 ML Neb Soln NEB PRN (23:15)
[2021-03-24] MEDS ORDERED: Ondansetron 4 MG/2 ML SDV IVPUSH PRN (23:15)
[2021-03-25] MEDS: metroNIDAZOLE/Normal Saline 500 MG in Premix Bag 1 BAG IV SCH ×4 (00:42→23:37)
[2021-03-25] MEDS: Lactated Ringers 1,000 ML IV SCH ×3 (00:54→20:21)
[2021-03-25] MEDS ORDERED: 50% Dextrose in Water 50 ML Syringe IVPUSH PRN (01:19)
[2021-03-25] MEDS ORDERED: Glucagon,Human Recombinant 1 MG Vial IM PRN (01:19)
[2021-03-25] MEDS: LORazepam 2 MG/ML SDV IVPUSH PRN ×4 (01:36→16:41)
[2021-03-25] MEDS: Insulin Aspart 100 Units/ML 3 ML Pen SUBCUT SCH ×4 (01:38→18:44)
[2021-03-25] MEDS: Levofloxacin/Dextrose 5%-Water 750 MG in Premix Bag 1 BAG IV SCH (01:50)
[2021-03-25 06:36] LABS: BLOOD UREA NITROGEN,BUN 19 mg/dL (7.0-18.0); CARBON DIOXIDE,CO2 21.9 mmol/L (21.0-32.0); CHLORIDE,CL 111 mmol/L (98-107); GLUCOSE RANDOM 198 mg/dL (74-106); POTASSIUM,K 3.7 mmol/L (3.5-5.1); SODIUM,NA 143 mmol/L (136-148)
[2021-03-25] MEDS: Lactulose Soln 10 GM/15 ML 15 ML UD Cup PO SCH ×3 (06:54→20:21)
--- NOTE | 2021-03-25 08:46 | PCM.HP.2 ---
H&P History of Present Illness - General Date of Service: 03/25/21 Admit Problem/Dx: Admission Diagnosis/Problem Admission Diagnosis/Problem Encephalopathy Source of Information: Old Records History Limitations: Reports: Altered Mental Status - History of Present Illness Initial Comments - Free Text/Narative: This 55-year-old male with past medical history of oxygen dependent COPD, HIV, insulin-dependent diabetes presented to the ER after the police were called to his hotel room for welfare check. Apparently he was declining to answer any questions or provide additional history to the police. He was brought to the ER for further evaluation. During initial evaluation patient continues to be obtunded and encephalopathic answering questions with yes or no answers but other times appears to not be comprehending conversation. In the ER no leukocytosis noted hemoglobin 13.1, hematocrit 36.3 platelet count 71,000. Sodium 142 potassium 3.5 chloride 109. BUN 19 creatinine 1.7. Glucose 173. Total bilirubin 6.6 AST 43 ALT 31 alk phos 181 ammonia 203 lipase 21 urine negative urine toxicology negative alcohol level negative Covid swab negative. In the ER patient had head CT due to altered mental status encephalopathy which was negative for any intracranial hemorrhage, infarction and no abnormal enhancement of the brain CT. Mild microangiopathic changes and diffuse parenchymal volume loss noted. Abdominal CT obtained which reveals nodular liver consistent with cirrhosis. There is gallbladder wall thickening and edema no biliary dilation the pancreas is unremarkable. There is a 2.5 centimeter heterogenous soft tissue density in the medial aspect of the descending duodenum concerning for mucosal lesion consider follow-up endoscopy. Gallbladder wall thickening and edema concerning for cholecystitis. Abdominal ultrasound obtained report pending. In the ER patient was treated with lactulose Ativan banana bag and started on Levaquin and Flagyl. Patient will be admitted for altered mental status and acute cholecystitis. - Related Data Allergies/Adverse Reactions: Allergies Allergy/AdvReac Type Severity Reaction Status Date / Time Penicillins Allergy doesn't Verified 03/24/21 17:29 know sulfamethoxazole AdvReac Nausea and Verified 03/24/21 17:29 [From Bactrim] Vomiting Home Medications: Home Meds Albuterol/Ipratropium [Combivent Respimat] QID 07/28/18 [History] Albuterol/Ipratropium [DuoNeb 3.0-0.5 MG/3 ML] QID 07/28/18 [History] Budesonide/Formoterol [Symbicort 160-4.5 MCG] 2 inh BID 07/28/18 [History] Ondansetron [Zofran ODT] 4 mg PO Q6H PRN #10 tab.dis 09/02/18 [Rx] metFORMIN [Glucophage XR] 500 mg PO DAILY 04/23/19 [History] Past Medical History HEENT History: Reports: None Cardiovascular History: Reports: SOB on Exertion Other Cardiovascular History: reports AV shunt Respiratory History: Reports: COPD, SOB Other Respiratory History: Pulmonary hypertension and pulmonary fibrosis. Gastrointestinal History: Reports: Cholelithiasis, Pancreatitis Other Gastrointestinal History: nausea Genitourinary History: Reports: Renal Disease Other Genitourinary History: reports 1 kidney functioning Other Musculoskeletal History: Sclerotic bone lesions of pelvis and spine on p rev CT's. Neurological History: Reports: None Psychiatric History: Reports: Depression Endocrine/Metabolic History: Reports: Diabetes, Type II Hematologic History: Reports: None Immunologic History: Reports: HIV Other Immunologic History: From previous history Oncologic (Cancer) History: Reports: None Dermatologic History: Reports: None - Infectious Disease History Infectious Disease History: Reports: Chicken Pox, HIV-Human Immunodeficiency Virus - Past Surgical History Head Surgeries/Procedures: Reports: None HEENT Surgical History: Reports: Adenoidectomy Cardiovascular Surgical History: Reports: None Respiratory Surgical History: Reports: None GI Surgical History: Reports: None Male Surgical History: Reports: None Endocrine Surgical History: Reports: None Social & Family History - Family History Family Medical History: No Pertinent Family History Cardiac: Reports: OK Musculoskeletal: Reports: Arthritis Neurological: Reports: CVA Psychiatric: Reports: None Endocrine/Metabolic: Reports: Diabetes, type II - Tobacco Use Tobacco Use Status *Q: Never Tobacco User - Caffeine Use Caffeine Use: Reports: None Caffeine Use Comment: 1 cup daily - Recreational Drug Use Recreational Drug Use: No - Living Situation & Occupation Living situation: Reports: Alone, Single Occupation: Unemployed H&P Review of Systems - Review of Systems: Review Of Systems: Unable To Obtain Reason Not Obtained: Altered mental status Exam - Exam Exam: See Below - Vital Signs Vital Signs: Last Vital Signs Temp 95.5 F L 03/25/21 08:00 Pulse 57 L 03/25/21 08:00 Resp 20 03/25/21 08:00 BP 138/81 03/25/21 08:00 Pulse Ox 100 03/25/21 08:00 Weight: 69 kg - Exam General: No: Alert, Oriented HEENT: Conjunctiva Clear, Mucosa Moist & [place], Posterior Pharynx Clear Lungs: Clear to Auscultation, Normal Respiratory Effort Cardiovascular: Regular Rate, Regular Rhythm, Normal S1, Normal S2 GI/Abdominal Exam: Normal Bowel Sounds, Soft, Non-Tender, No Distention Extremities: Normal Inspection, Normal Range of Motion, Non-Tender, No Pedal Edema Neuro Extensive - Mental Status: Opens Eyes to Commands. No: Alert, Oriented x3 Psychiatric: Other (obtunded) - Patient Data Lab Results Last 24 hrs: Laboratory Results - last 24 hr 03/24/21 03/24/21 03/24/21 Range/Units 17:43 17:43 19:10 WBC 7.25 (4.0-11.0) K/uL RBC 3.89 L (4.50-5.90) M/uL Hgb 13.1 (13.0-17.0) g/dL Hct 36.3 L (38.0-50.0) % MCV 93.3 (80.0-98.0) fL MCH 33.7 H (27.0-32.0) pg MCHC 36.1 (31.0-37.0) g/dL RDW Std Deviation 53.2 (28.0-62.0) fl RDW Coeff of Blanche 16 H (11.0-15.0) % Plt Count 71 L (150-400) K/uL MPV 10.30 (7.40-12.00) fL Add Manual Diff YES Neutrophils % (Manual) 73 (48.0-80.0) % Lymphocytes % (Manual) 17 (16.0-40.0) % Monocytes % (Manual) 5 (0.0-15.0) % Eosinophils % (Manual) 2 (0.0-7.0) % Metamyelocytes % 2 % Myelocytes % 1 % Nucleated RBC % 0.8 /100WBC Absolute Seg Neuts 5.3 (1.4-5.7) Lymphocytes # (Manual) 1.2 (0.6-2.4) Monocytes # (Manual) 0.4 (0.0-0.8) Eosinophils # (Manual) 0.1 (0.0-0.7) Absolute Metamyelocyte 0.1 Absolute Myelocytes 0.1 Nucleated RBCs # 0 K/uL INR Sodium 142 (136-148) mmol/L Potassium 3.5 (3.5-5.1) mmol/L Chloride 109 H (98-107) mmol/L Carbon Dioxide 22.3 (21.0-32.0) mmol/L BUN 19 H (7.0-18.0) mg/dL Creatinine 1.7 H (0.8-1.3) mg/dL Est Cr Clr Drug Dosing TNP Estimated GFR (MDRD) 41.9 ml/min Glucose 173 H (74-106) mg/dL POC Glucose (70-99) mg/dL Calcium 8.3 L (8.5-10.1) mg/dL Phosphorus (2.6-4.7) mg/dL Magnesium (1.8-2.4) mg/dL Total Bilirubin 6.6 H (0.2-1.0) mg/dL AST 43 H (15-37) IU/L ALT 31 (14-63) IU/L Alkaline Phosphatase 181 H (46-116) U/L Ammonia 203 H (19-54) ug/dL Total Protein 6.9 (6.4-8.2) g/dL Albumin 2.7 L (3.4-5.0) g/dL Globulin 4.2 H (2.6-4.0) g/dL Albumin/Globulin Ratio 0.6 L (0.9-1.6) Lipase (73-393) U/L Urine Color Urine Appearance Urine pH (5.0-8.0) Ur Specific [place] (1.001-1.035) Urine Protein (NEGATIVE) mg/dL Urine Glucose (UA) (NEGATIVE) mg/dL Urine Ketones (NEGATIVE) mg/dL Urine Occult Blood (NEGATIVE) Urine Nitrite (NEGATIVE) Urine Bilirubin (NEGATIVE) Urine Urobilinogen (<2.0) EU/dL Ur Leukocyte Esterase (NEGATIVE) Urine Opiates Screen (NEGATIVE) Ur Oxycodone Screen (NEGATIVE) Urine Methadone Screen (NEGATIVE) Ur Barbiturates Screen (NEGATIVE) Ur Phencyclidine Scrn (NEGATIVE) Ur Amphetamine Screen (NEGATIVE) U Methamphetamines Scrn (NEGATIVE) U Benzodiazepines Scrn (NEGATIVE) U Cocaine Metab Screen (NEGATIVE) U Marijuana (THC) Screen (NEGATIVE) Ethyl Alcohol < 3.0 mg/dL SARS-CoV-2 RNA (SAUR[facility]H) (NEGATIVE) 03/24/21 03/24/21 03/24/21 Range/Units 19:10 21:00 22:24 WBC (4.0-11.0) K/uL RBC (4.50-5.90) M/uL Hgb (13.0-17.0) g/dL Hct (38.0-50.0) % MCV (80.0-98.0) fL MCH (27.0-32.0) pg MCHC (31.0-37.0) g/dL RDW Std Deviation (28.0-62.0) fl RDW Coeff of Blanche (11.0-15.0) % Plt Count (150-400) K/uL MPV (7.40-12.00) fL Add Manual Diff Neutrophils % (Manual) (48.0-80.0) % Lymphocytes % (Manual) (16.0-40.0) % Monocytes % (Manual) (0.0-15.0) % Eosinophils % (Manual) (0.0-7.0) % Metamyelocytes % % Myelocytes % % Nucleated RBC % /100WBC Absolute Seg Neuts (1.4-5.7) Lymphocytes # (Manual) (0.6-2.4) Monocytes # (Manual) (0.0-0.8) Eosinophils # (Manual) (0.0-0.7) Absolute Metamyelocyte Absolute Myelocytes Nucleated RBCs # K/uL INR 1.61 Sodium (136-148) mmol/L Potassium (3.5-5.1) mmol/L Chloride (98-107) mmol/L Carbon Dioxide (21.0-32.0) mmol/L BUN (7.0-18.0) mg/dL Creatinine (0.8-1.3) mg/dL Est Cr Clr Drug Dosing Estimated GFR (MDRD) ml/min Glucose (74-106) mg/dL POC Glucose (70-99) mg/dL Calcium (8.5-10.1) mg/dL Phosphorus (2.6-4.7) mg/dL Magnesium (1.8-2.4) mg/dL Total Bilirubin (0.2-1.0) mg/dL AST (15-37) IU/L ALT (14-63) IU/L Alkaline Phosphatase (46-116) U/L Ammonia (19-54) ug/dL Total Protein (6.4-8.2) g/dL Albumin (3.4-5.0) g/dL Globulin (2.6-4.0) g/dL Albumin/Globulin Ratio (0.9-1.6) Lipase 21 L (73-393) U/L Urine Color Urine Appearance Urine pH (5.0-8.0) Ur Specific [place] (1.001-1.035) Urine Protein (NEGATIVE) mg/dL Urine Glucose (UA) (NEGATIVE) mg/dL Urine Ketones (NEGATIVE) mg/dL Urine Occult Blood (NEGATIVE) Urine Nitrite (NEGATIVE) Urine Bilirubin (NEGATIVE) Urine Urobilinogen (<2.0) EU/dL Ur Leukocyte Esterase (NEGATIVE) Urine Opiates Screen (NEGATIVE) Ur Oxycodone Screen (NEGATIVE) Urine Methadone Screen (NEGATIVE) Ur Barbiturates Screen (NEGATIVE) Ur Phencyclidine Scrn (NEGATIVE) Ur Amphetamine Screen (NEGATIVE) U Methamphetamines Scrn (NEGATIVE) U Benzodiazepines Scrn (NEGATIVE) U Cocaine Metab Screen (NEGATIVE) U Marijuana (THC) Screen (NEGATIVE) Ethyl Alcohol mg/dL SARS-CoV-2 RNA ([facility]H) NEGATIVE (NEGATIVE) 03/24/21 03/24/21 03/25/21 Range/Units 22:47 22:47 00:51 WBC (4.0-11.0) K/uL RBC (4.50-5.90) M/uL Hgb (13.0-17.0) g/dL Hct (38.0-50.0) % MCV (80.0-98.0) fL MCH (27.0-32.0) pg MCHC (31.0-37.0) g/dL RDW Std Deviation (28.0-62.0) fl RDW Coeff of Blanche (11.0-15.0) % Plt Count (150-400) K/uL MPV (7.40-12.00) fL Add Manual Diff Neutrophils % (Manual) (48.0-80.0) % Lymphocytes % (Manual) (16.0-40.0) % Monocytes % (Manual) (0.0-15.0) % Eosinophils % (Manual) (0.0-7.0) % Metamyelocytes % % Myelocytes % % Nucleated RBC % /100WBC Absolute Seg Neuts (1.4-5.7) Lymphocytes # (Manual) (0.6-2.4) Monocytes # (Manual) (0.0-0.8) Eosinophils # (Manual) (0.0-0.7) Absolute Metamyelocyte Absolute Myelocytes Nucleated RBCs # K/uL INR Sodium (136-148) mmol/L Potassium (3.5-5.1) mmol/L Chloride (98-107) mmol/L Carbon Dioxide (21.0-32.0) mmol/L BUN (7.0-18.0) mg/dL Creatinine (0.8-1.3) mg/dL Est Cr Clr Drug Dosing Estimated GFR (MDRD) ml/min Glucose (74-106) mg/dL POC Glucose 285 H (70-99) mg/dL Calcium (8.5-10.1) mg/dL Phosphorus (2.6-4.7) mg/dL Magnesium (1.8-2.4) mg/dL Total Bilirubin (0.2-1.0) mg/dL AST (15-37) IU/L ALT (14-63) IU/L Alkaline Phosphatase (46-116) U/L Ammonia (19-54) ug/dL Total Protein (6.4-8.2) g/dL Albumin (3.4-5.0) g/dL Globulin (2.6-4.0) g/dL Albumin/Globulin Ratio (0.9-1.6) Lipase (73-393) U/L Urine Color YELLOW Urine Appearance CLEAR Urine pH 7.0 (5.0-8.0) Ur Specific [place] 1.010 (1.001-1.035) Urine Protein NEGATIVE (NEGATIVE) mg/dL Urine Glucose (UA) 500 H (NEGATIVE) mg/dL Urine Ketones NEGATIVE (NEGATIVE) mg/dL Urine Occult Blood NEGATIVE (NEGATIVE) Urine Nitrite NEGATIVE (NEGATIVE) Urine Bilirubin NEGATIVE (NEGATIVE) Urine Urobilinogen 2.0 H (<2.0) EU/dL Ur Leukocyte Esterase NEGATIVE (NEGATIVE) Urine Opiates Screen NEGATIVE (NEGATIVE) Ur Oxycodone Screen NEGATIVE (NEGATIVE) Urine Methadone Screen NEGATIVE (NEGATIVE) Ur Barbiturates Screen NEGATIVE (NEGATIVE) Ur Phencyclidine Scrn NEGATIVE (NEGATIVE) Ur Amphetamine Screen NEGATIVE (NEGATIVE) U Methamphetamines Scrn NEGATIVE (NEGATIVE) U Benzodiazepines Scrn NEGATIVE (NEGATIVE) U Cocaine Metab Screen NEGATIVE (NEGATIVE) U Marijuana (THC) Screen NEGATIVE (NEGATIVE) Ethyl Alcohol mg/dL SARS-CoV-2 RNA ([facility]) (NEGATIVE) 03/25/21 03/25/21 03/25/21 Range/Units 05:50 05:50 05:50 WBC 5.33 (4.0-11.0) K/uL RBC 3.37 L (4.50-5.90) M/uL Hgb 11.4 L (13.0-17.0) g/dL Hct 31.4 L (38.0-50.0) % MCV 93.2 (80.0-98.0) fL MCH 33.8 H (27.0-32.0) pg MCHC 36.3 (31.0-37.0) g/dL RDW Std Deviation 52.8 (28.0-62.0) fl RDW Coeff of Blanche 16 H (11.0-15.0) % Plt Count 59 L (150-400) K/uL MPV 11.00 (7.40-12.00) fL Add Manual Diff YES Neutrophils % (Manual) 55 (48.0-80.0) % Lymphocytes % (Manual) 31 (16.0-40.0) % Monocytes % (Manual) 12 (0.0-15.0) % Eosinophils % (Manual) 2 (0.0-7.0) % Metamyelocytes % % Myelocytes % % Nucleated RBC % 0.0 /100WBC Absolute Seg Neuts 2.9 (1.4-5.7) Lymphocytes # (Manual) 1.7 (0.6-2.4) Monocytes # (Manual) 0.6 (0.0-0.8) Eosinophils # (Manual) 0.1 (0.0-0.7) Absolute Metamyelocyte Absolute Myelocytes Nucleated RBCs # 0 K/uL INR Sodium 143 (136-148) mmol/L Potassium 3.7 (3.5-5.1) mmol/L Chloride 111 H (98-107) mmol/L Carbon Dioxide 21.9 (21.0-32.0) mmol/L BUN 19 H (7.0-18.0) mg/dL Creatinine 1.3 (0.8-1.3) mg/dL Est Cr Clr Drug Dosing TNP Estimated GFR (MDRD) 57.1 ml/min Glucose 198 H (74-106) mg/dL POC Glucose (70-99) mg/dL Calcium 7.9 L (8.5-10.1) mg/dL Phosphorus 3.0 (2.6-4.7) mg/dL Magnesium 1.9 (1.8-2.4) mg/dL Total Bilirubin 5.2 H (0.2-1.0) mg/dL AST 40 H (15-37) IU/L ALT 34 (14-63) IU/L Alkaline Phosphatase 158 H (46-116) U/L Ammonia 166 H (19-54) ug/dL Total Protein 5.9 L (6.4-8.2) g/dL Albumin 2.2 L (3.4-5.0) g/dL Globulin 3.7 (2.6-4.0) g/dL Albumin/Globulin Ratio 0.6 L (0.9-1.6) Lipase (73-393) U/L Urine Color Urine Appearance Urine pH (5.0-8.0) Ur Specific [place] (1.001-1.035) Urine Protein (NEGATIVE) mg/dL Urine Glucose (UA) (NEGATIVE) mg/dL Urine Ketones (NEGATIVE) mg/dL Urine Occult Blood (NEGATIVE) Urine Nitrite (NEGATIVE) Urine Bilirubin (NEGATIVE) Urine Urobilinogen (<2.0) EU/dL Ur Leukocyte Esterase (NEGATIVE) Urine Opiates Screen (NEGATIVE) Ur Oxycodone Screen (NEGATIVE) Urine Methadone Screen (NEGATIVE) Ur Barbiturates Screen (NEGATIVE) Ur Phencyclidine Scrn (NEGATIVE) Ur Amphetamine Screen (NEGATIVE) U Methamphetamines Scrn (NEGATIVE) U Benzodiazepines Scrn (NEGATIVE) U Cocaine Metab Screen (NEGATIVE) U Marijuana (THC) Screen (NEGATIVE) Ethyl Alcohol mg/dL SARS-CoV-2 RNA ([facility]) (NEGATIVE) 03/25/21 Range/Units 06:04 WBC (4.0-11.0) K/uL RBC (4.50-5.90) M/uL Hgb (13.0-17.0) g/dL Hct (38.0-50.0) % MCV (80.0-98.0) fL MCH (27.0-32.0) pg MCHC (31.0-37.0) g/dL RDW Std Deviation (28.0-62.0) fl RDW Coeff of Blanche (11.0-15.0) % Plt Count (150-400) K/uL MPV (7.40-12.00) fL Add Manual Diff Neutrophils % (Manual) (48.0-80.0) % Lymphocytes % (Manual) (16.0-40.0) % Monocytes % (Manual) (0.0-15.0) % Eosinophils % (Manual) (0.0-7.0) % Metamyelocytes % % Myelocytes % % Nucleated RBC % /100WBC Absolute Seg Neuts (1.4-5.7) Lymphocytes # (Manual) (0.6-2.4) Monocytes # (Manual) (0.0-0.8) Eosinophils # (Manual) (0.0-0.7) Absolute Metamyelocyte Absolute Myelocytes Nucleated RBCs # K/uL INR Sodium (136-148) mmol/L Potassium (3.5-5.1) mmol/L Chloride (98-107) mmol/L Carbon Dioxide (21.0-32.0) mmol/L BUN (7.0-18.0) mg/dL Creatinine (0.8-1.3) mg/dL Est Cr Clr Drug Dosing Estimated GFR (MDRD) ml/min Glucose (74-106) mg/dL POC Glucose 168 H (70-99) mg/dL Calcium (8.5-10.1) mg/dL Phosphorus (2.6-4.7) mg/dL Magnesium (1.8-2.4) mg/dL Total Bilirubin (0.2-1.0) mg/dL AST (15-37) IU/L ALT (14-63) IU/L Alkaline Phosphatase (46-116) U/L Ammonia (19-54) ug/dL Total Protein (6.4-8.2) g/dL Albumin (3.4-5.0) g/dL Globulin (2.6-4.0) g/dL Albumin/Globulin Ratio (0.9-1.6) Lipase (73-393) U/L Urine Color Urine Appearance Urine pH (5.0-8.0) Ur Specific [place] (1.001-1.035) Urine Protein (NEGATIVE) mg/dL Urine Glucose (UA) (NEGATIVE) mg/dL Urine Ketones (NEGATIVE) mg/dL Urine Occult Blood (NEGATIVE) Urine Nitrite (NEGATIVE) Urine Bilirubin (NEGATIVE) Urine Urobilinogen (<2.0) EU/dL Ur Leukocyte Esterase (NEGATIVE) Urine Opiates Screen (NEGATIVE) Ur Oxycodone Screen (NEGATIVE) Urine Methadone Screen (NEGATIVE) Ur Barbiturates Screen (NEGATIVE) Ur Phencyclidine Scrn (NEGATIVE) Ur Amphetamine Screen (NEGATIVE) U Methamphetamines Scrn (NEGATIVE) U Benzodiazepines Scrn (NEGATIVE) U Cocaine Metab Screen (NEGATIVE) U Marijuana (THC) Screen (NEGATIVE) Ethyl Alcohol mg/dL SARS-CoV-2 RNA ([facility]UR[place]H) (NEGATIVE) Result Diagrams: 03/25/21 05:50 03/25/21 05:50 Sepsis Event Note - Evaluation Sepsis Screening Result: No Definite Risk - Focused Exam Vital Signs: Vital Signs Temp Pulse Resp BP Pulse Ox 03/25/21 08:00 95.5 F L 57 L 20 138/81 100 03/25/21 04:27 97.3 F 75 16 141/88 H 97 03/25/21 00:37 96.2 F L 48 L 16 147/77 H 97 03/24/21 23:07 62 17 148/81 H 96 03/24/21 22:06 54 L 17 150/84 H 95 - Problem List (1) Encephalopathy SNOMED Code(s): 14994279 ICD Code: G93.40 - ENCEPHALOPATHY, UNSPECIFIED Status: Acute Current Visit: Yes (2) Altered mental status SNOMED Code(s): 548044013 ICD Code: R41.82 - ALTERED MENTAL STATUS, UNSPECIFIED Status: Acute C urrent Visit: No (3) Acute cholecystitis SNOMED Code(s): 74464249 ICD Code: K81.0 - ACUTE CHOLECYSTITIS Status: Suspected Current Visit: Yes (4) Duodenal mass SNOMED Code(s): 493527013 ICD Code: K31.89 - OTHER DISEASES OF STOMACH AND DUODENUM Status: Suspected Current Visit: Yes (5) Dehydration SNOMED Code(s): 44278092 ICD Code: E86.0 - DEHYDRATION Status: Acute Current Visit: No (6) Depression SNOMED Code(s): 94827065 Status: Chronic Current Visit: No (7) Diabetes mellitus SNOMED Code(s): 91528969 Status: Chronic Current Visit: No Qualifiers: Diabetes mellitus type: type 2 Diabetes mellitus emt intermediate insulin use: with usp use Diabetes mellitus complication status: with kidney complications (8) HIV (human immunodeficiency virus infection) SNOMED Code(s): 04272345 Status: Chronic Current Visit: No (9) History of COPD SNOMED Code(s): 121209516 ICD Code: Z87.09 - PERSONAL HISTORY OF OTHER DISEASES OF THE RESPIRATORY SYSTEM Status: Chronic Current Visit: No (10) History of pancreatitis SNOMED Code(s): 67357528065479 Status: Chronic Current Visit: No (11) Hyperbilirubinemia SNOMED Code(s): 17830041 ICD Code: E80.6 - OTHER DISORDERS OF BILIRUBIN METABOLISM Status: Acute Current Visit: Yes (12) Transaminitis SNOMED Code(s): 828261753, 008322103 ICD Code: R74.01 - ELEVATION OF LEVELS OF LIVER TRANSAMINASE LEVELS Status: Acute Current Visit: Yes (13) Hyperammonemia SNOMED Code(s): 1845749 ICD Code: E72.20 - DISORDER OF UREA CYCLE METABOLISM, UNSPECIFIED Status: Acute Current Visit: Yes (14) CKD (chronic kidney disease) SNOMED Code(s): 452315624 ICD Code: N18.9 - CHRONIC KIDNEY DISEASE, UNSPECIFIED Status: Chronic Current Visit: Yes (15) Chronic respiratory failure with hypoxia SNOMED Code(s): 747962142 ICD Code: J96.11 - CHRONIC RESPIRATORY FAILURE WITH HYPOXIA Status: Chronic Current Visit: Yes (16) Personal history of arterial venous malformation (AVM) SNOMED Code(s): 146489618 ICD Code: Z87.74 - PERSONAL HISTORY OF CONGENITAL MALFORM OF HEART AND CIRC SYS Status: Chronic Current Visit: Yes (17) On home oxygen therapy SNOMED Code(s): 042937636548 ICD Code: Z99.81 - DEPENDENCE ON SUPPLEMENTAL OXYGEN Status: Chronic Current Visit: Yes Problem List Initiated/Reviewed/Updated: Yes Orders Last 24hrs: Active Orders 24 hr Category Date Time Status Admission Status [Patient Status] [ADT] Stat ADT 03/24/21 22:57 Active Ambulate [RC] ASDIRECTED Care 03/24/21 23:15 Active Antiembolic Devices [RC] PER UNIT ROUTINE Care 03/24/21 23:16 Active Blood Glucose Check, Bedside [RC] Q6H Care 03/24/21 23:15 Active Oxygen Therapy [RC] PRN Care 03/24/21 23:15 Active RT Aerosol Therapy [RC] ASDIRECTED Care 03/24/21 23:17 Active VTE/DVT Education [RC] PER UNIT ROUTINE Care 03/24/21 23:15 Active Vital Signs [RC] Q4H Care 03/24/21 23:15 Active Nothing per Oral Now Diet [DIET] Diet 03/24/21 Dinner Active Abdomen Ltd [US] Stat Exams 03/25/21 08:00 Taken Albuterol/Ipratropium [DuoNeb 3.0-0.5 MG/3 ML] Med 03/24/21 23:15 Active 3 ml NEB Q4HRRT PRN Dextrose 50% in Water Med 03/25/21 01:19 Active 50 ml IVPUSH ASDIRECTED PRN Glucagon,Human Recombinant [GlucaGen] Med 03/25/21 01:19 Active 1 mg IM ASDIRECTED PRN Insulin Aspart [NovoLOG] Med 03/25/21 01:30 Active See Protocol SUBCUT Q6HR LORazepam [Ativan] Med 03/25/21 01:22 Active 1 mg IVPUSH Q4H PRN Lactated Ringers [Ringers, Lactated] 1,000 ml Med 03/24/21 23:15 Active IV ASDIRECTED Lactulose [Chronulac] Med 03/25/21 04:45 Active 20 gm PO Q8H Levofloxacin/Dextrose 5%-Water [Levaquin in D5W 750 MG/ Med 03/24/21 23:30 Active 150 ML] 750 mg Premix Bag 1 bag IV Q24H Ondansetron [Zofran] Med 03/24/21 23:15 Active 4 mg IVPUSH Q4H PRN metroNIDAZOLE/Normal Saline [Flagyl in NS 500 MG/100 ML Med 03/24/21 23:30 Active ] 500 mg Premix Bag 1 bag IV Q8H Sequential Compression Device [OM.PC] Per Unit Routine Oth 03/24/21 23:16 Ordered Resuscitation Status Routine Resus Stat 03/24/21 23:15 Ordered Medication Orders Albuterol/Ipratropium (Albuterol/Ipratropium 3.0-0.5 Mg/3 Ml Neb Soln) 3 ml NEB Q4HRRT PRN PRN Reason: Shortness Of Breath/wheezing Dextrose/Water (50% Dextrose In Water 50 Ml Syringe) 50 ml IVPUSH ASDIRECTED PRN PRN Reason: Hypoglycemia Glucagon (Glucagon,Human Recombinant 1 Mg Vial) 1 mg IM ASDIRECTED PRN PRN Reason: Hypoglycemia Lactated Ringer's (Ringers, Lactated) 1,000 mls @ 125 mls/hr IV ASDIRECTED [facility] Last Admin: 03/25/21 00:54 Dose: 125 mls/hr Documented by: [facility] Levofloxacin/Dextrose 750 mg/ (Premix) 150 mls @ 100 mls/hr IV Q24H [facility] Last Admin: 03/25/21 01:50 Dose: 100 mls/hr Documented by: [facility] Metronidazole 500 mg/ Premix 100 mls @ 100 mls/hr IV Q8H [facility] Last Admin: 03/25/21 07:05 Dose: 100 mls/hr Documented by: Infusion: 03/25/21 01:42 Dose: 100 mls/hr Documented by: Admin: 03/25/21 00:42 Dose: 100 mls/hr Documented by: CHU Insulin Aspart (Insulin Aspart 100 Units/Ml 3 Ml Pen) 0 unit SUBCUT Q6HR [facility]; Protocol Last Admin: 03/25/21 06:06 Dose: Not Given Documented by: Admin: 03/25/21 01:38 Dose: 3 units Documented by: GIBRANIMARaegan Lactulose (Lactulose Soln 10 Gm/15 Ml 15 Ml Ud Cup) 20 gm PO Q8H [facility] Last Admin: 03/25/21 06:54 Dose: 20 gm Documented by: CHU Lorazepam (Lorazepam 2 Mg/Ml Sdv) 1 mg IVPUSH Q4H PRN PRN Reason: Agitation Last Admin: 03/25/21 05:07 Dose: 1 mg Documented by: Admin: 03/25/21 01:36 Dose: 1 mg Documented by: JOHAN Ondansetron HCl (Ondansetron 4 Mg/2 Ml Sdv) 4 mg IVPUSH Q4H PRN PRN Reason: Nausea/Vomiting Assessment/Plan Comment:: This 55-year-old male admitted with altered mental status and acute cholecystitis with 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 Altered mental status change/encephalopathy -Ammonia remains elevated -Continue lactulose -Hold any medications that could cause sedation or confusion -A BM in ER as well as one this morning -Continue lactulose 20 mg every 8 hours. With a goal of at least 3 bowel movements daily. -Patient was obtunded and unable to take morning dose of lactulose if patient continues to remain obtunded and unable to take medication will need to consider NG tube placement for administration of lactulose. -Has had noted progressive hyperbilirubinemia but no localized right upper quadrant pain has been noted by primary care patient recently was referred to GI for left upper quadrant pain but otherwise eating and drinking well. 2. Acute cholecystitis -continue Levaquin and Flagyl -N.p.o. -Abdominal ultrasound completed no abnormal gallbladder wall thickening or edema noted. -Continue antibiotics for now -Transaminitis and hyperbilirubinemia appears at baseline. -We will need to continue with GI appointment as endoscopy is recommended with mucosal duodenal mass. Nursing will contact department to reschedule appointment. 3. 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 -Appears through patient chart review of [facility] that patient was supposed to see GI specialty today for chronic left upper quadrant abdominal pain. He does most of his follow-up in [facility] 4. DM type II -Blood sugar checks every 6 hours while n.p.o. -[employer]ovo[employer] sliding scale 5. History HIV -Most recent CD 4 counts was 791 -Does follow with Dr. Aguirre in [place] -Appears to take antiviral treatment Biktarvy 6. Chronic respiratory failure with hypoxia on home O2 secondary to arteriovenous malformation/COPD -Intermittently does not need home oxygen but otherwise uses home oxygen at home 7. CKD -At baseline VTE prophylaxis: SCDs for now GI prophylaxis: Protonix CODE STATUS: Full code, patient unable to give response we will place full code at this time. Dispo: 2 to 3 days pending improvement Nursing staff and ER physician had attempted to get a hold of family, mother. All numbers within our chart as well as my [facility] chart did not get answers or disconnected. We will consult director social service/case management to assist in contacting family. Patient is staying at hotel in town will attempt contacting them if they have any type of emergency contact. Extensive chart review performed via NDWIN greater than 35 minutes
--- NOTE | 2021-03-25 08:53 | US ---
INDICATION: Cholecystitis. TECHNIQUE: Ultrasound abdomen limited. Sonographic images of the right upper quadrant were obtained using ha-scale and color Doppler images. COMPARISON: CT abdomen pelvis March 24, 2021. FINDINGS: Liver: Cirrhotic morphology. No masses. No intrahepatic biliary dilatation. Gallbladder: No stones or sludge. Normal wall thickness. No pericholecystic fluid. Common bile duct: 2 mm. Pancreas: Normal. Right kidney: Severely atrophic. No suspicious masses, stones, or hydronephrosis. IMPRESSION: 1. Gallbladder and biliary tree appear unremarkable on this exam. 2. Liver cirrhosis. 3. Severely atrophic right kidney. Dictated by Azam Duenas MD @ 03/25/2021 8:51:[address] Azam Duenas @ Mar 25 2021 8:51AM
[2021-03-26] MEDS: Levofloxacin/Dextrose 5%-Water 750 MG in Premix Bag 1 BAG IV SCH (01:36)
[2021-03-26] MEDS: Insulin Aspart 100 Units/ML 3 ML Pen SUBCUT SCH ×4 (01:44→16:58)
[2021-03-26] MEDS: Lactulose Soln 10 GM/15 ML 15 ML UD Cup PO SCH ×3 (04:44→20:21)
[2021-03-26] MEDS: metroNIDAZOLE/Normal Saline 500 MG in Premix Bag 1 BAG IV SCH (06:46)
[2021-03-26] MEDS: Lactated Ringers 1,000 ML IV SCH ×2 (06:51→15:44)
[2021-03-26 06:54] LABS: BLOOD UREA NITROGEN,BUN 17 mg/dL (7.0-18.0); CHLORIDE,CL 109 mmol/L (98-107); GLUCOSE RANDOM 121 mg/dL (74-106); POTASSIUM,K 3.6 mmol/L (3.5-5.1); SODIUM,NA 140 mmol/L (136-148)
[2021-03-26] MEDS ORDERED: Magnesium Sulfate/Water 4 GM in Premix Bag 1 BAG IV ONE (08:03)
--- NOTE | 2021-03-26 09:28 | PCM.PN ---
- General Info Date of Service: 03/26/21 Admission Dx/Problem (Free Text): Admission Diagnosis/Problem Admission Diagnosis/Problem Encephalopathy Subjective Update: Patient much more alert today. Continues to have intermittent confusion and sleepiness. But patient is talkative and asking questions about what happened. Denies any abdominal pain no chest pain no shortness of breath. He is eating and drinking well had 2 bowel movements already this morning. Functional Status: Reports: Pain Controlled, Tolerating Diet, Ambulating, Urin ating - Review of Systems General: Reports: No Symptoms. Denies: Weakness, Malaise HEENT: Reports: No Symptoms. Denies: Headaches, Sore Throat, Visual Changes Pulmonary: Reports: No Symptoms. Denies: Shortness of Breath Cardiovascular: Reports: No Symptoms. Denies: Chest Pain Gastrointestinal: Reports: No Symptoms. Denies: Abdominal Pain, Nausea, Vomitin g Genitourinary: Reports: No Symptoms Musculoskeletal: Reports: No Symptoms Skin: Reports: No Symptoms Neurological: Reports: Confusion Psychiatric: Reports: No Symptoms - Patient Data Vitals - Most Recent: Last Vital Signs Temp 96.8 F L 03/26/21 07:07 Pulse 55 L 03/26/21 07:07 Resp 22 H 03/26/21 07:07 BP 129/73 03/26/21 07:07 Pulse Ox 98 03/26/21 07:07 Weight - Most Recent: 69 kg I&O - Last 24 Hours: Intake & Output 03/25/21 03/26/21 03/26/21 22:59 06:59 14:59 Intake Total 1243 0 Output Total 0 400 Balance 1243 -400 Lab Results Last 24 Hours: Laboratory Results - last 24 hr 03/25/21 03/25/21 03/25/21 Range/Units 11:59 17:46 23:51 WBC (4.0-11.0) K/uL RBC (4.50-5.90) M/uL Hgb (13.0-17.0) g/dL Hct (38.0-50.0) % MCV (80.0-98.0) fL MCH (27.0-32.0) pg MCHC (31.0-37.0) g/dL RDW Std Deviation (28.0-62.0) fl RDW Coeff of Blanche (11.0-15.0) % Plt Count (150-400) K/uL MPV (7.40-12.00) fL Add Manual Diff Neutrophils % (Manual) (48.0-80.0) % Band Neutrophils % % Lymphocytes % (Manual) (16.0-40.0) % Monocytes % (Manual) (0.0-15.0) % Eosinophils % (Manual) (0.0-7.0) % Nucleated RBC % /100WBC Absolute Seg Neuts (1.4-5.7) Band Neutrophils # Lymphocytes # (Manual) (0.6-2.4) Monocytes # (Manual) (0.0-0.8) Eosinophils # (Manual) (0.0-0.7) Nucleated RBCs # K/uL Sodium (136-148) mmol/L Potassium (3.5-5.1) mmol/L Chloride (98-107) mmol/L Carbon Dioxide (21.0-32.0) mmol/L BUN (7.0-18.0) mg/dL Creatinine (0.8-1.3) mg/dL Est Cr Clr Drug Dosing Estimated GFR (MDRD) ml/min Glucose (74-106) mg/dL POC Glucose 128 H 130 H 98 (70-99) mg/dL Calcium (8.5-10.1) mg/dL Magnesium (1.8-2.4) mg/dL Total Bilirubin (0.2-1.0) mg/dL AST (15-37) IU/L ALT (14-63) IU/L Alkaline Phosphatase (46-116) U/L Ammonia (19-54) ug/dL Total Protein (6.4-8.2) g/dL Albumin (3.4-5.0) g/dL Globulin (2.6-4.0) g/dL Albumin/Globulin Ratio (0.9-1.6) 03/26/21 03/26/21 03/26/21 Range/Units 06:22 06:22 06:22 WBC 5.49 (4.0-11.0) K/uL RBC 3.61 L (4.50-5.90) M/uL Hgb 12.1 L (13.0-17.0) g/dL Hct 33.4 L (38.0-50.0) % MCV 92.5 (80.0-98.0) fL MCH 33.5 H (27.0-32.0) pg MCHC 36.2 (31.0-37.0) g/dL RDW Std Deviation 51.4 (28.0-62.0) fl RDW Coeff of Blanche 15 (11.0-15.0) % Plt Count 63 L (150-400) K/uL MPV 11.30 (7.40-12.00) fL Add Manual Diff YES Neutrophils % (Manual) 53 (48.0-80.0) % Band Neutrophils % 2 % Lymphocytes % (Manual) 31 (16.0-40.0) % Monocytes % (Manual) 3 (0.0-15.0) % Eosinophils % (Manual) 11 H (0.0-7.0) % Nucleated RBC % 0.0 /100WBC Absolute Seg Neuts 2.9 (1.4-5.7) Band Neutrophils # 0.1 Lymphocytes # (Manual) 1.7 (0.6-2.4) Monocytes # (Manual) 0.2 (0.0-0.8) Eosinophils # (Manual) 0.6 (0.0-0.7) Nucleated RBCs # 0 K/uL Sodium 140 (136-148) mmol/L Potassium 3.6 (3.5-5.1) mmol/L Chloride 109 H (98-107) mmol/L Carbon Dioxide 21.0 (21.0-32.0) mmol/L BUN 17 (7.0-18.0) mg/dL Creatinine 1.3 (0.8-1.3) mg/dL Est Cr Clr Drug Dosing TNP Estimated GFR (MDRD) 57.1 ml/min Glucose 121 H (74-106) mg/dL POC Glucose (70-99) mg/dL Calcium 8.0 L (8.5-10.1) mg/dL Magnesium 1.6 L (1.8-2.4) mg/dL Total Bilirubin 6.8 H (0.2-1.0) mg/dL AST 42 H (15-37) IU/L ALT 35 (14-63) IU/L Alkaline Phosphatase 150 H (46-116) U/L Ammonia 96 H (19-54) ug/dL Total Protein 6.0 L (6.4-8.2) g/dL Albumin 2.2 L (3.4-5.0) g/dL Globulin 3.8 (2.6-4.0) g/dL Albumin/Globulin Ratio 0.6 L (0.9-1.6) 03/26/21 Range/Units 06:34 WBC (4.0-11.0) K/uL RBC (4.50-5.90) M/uL Hgb (13.0-17.0) g/dL Hct (38.0-50.0) % MCV (80.0-98.0) fL MCH (27.0-32.0) pg MCHC (31.0-37.0) g/dL RDW Std Deviation (28.0-62.0) fl RDW Coeff of Blanche (11.0-15.0) % Plt Count (150-400) K/uL MPV (7.40-12.00) fL Add Manual Diff Neutrophils % (Manual) (48.0-80.0) % Band Neutrophils % % Lymphocytes % (Manual) (16.0-40.0) % Monocytes % (Manual) (0.0-15.0) % Eosinophils % (Manual) (0.0-7.0) % Nucleated RBC % /100WBC Absolute Seg Neuts (1.4-5.7) Band Neutrophils # Lymphocytes # (Manual) (0.6-2.4) Monocytes # (Manual) (0.0-0.8) Eosinophils # (Manual) (0.0-0.7) Nucleated RBCs # K/uL Sodium (136-148) mmol/L Potassium (3.5-5.1) mmol/L Chloride (98-107) mmol/L Carbon Dioxide (21.0-32.0) mmol/L BUN (7.0-18.0) mg/dL Creatinine (0.8-1.3) mg/dL Est Cr Clr Drug Dosing Estimated GFR (MDRD) ml/min Glucose (74-106) mg/dL POC Glucose 109 H (70-99) mg/dL Calcium (8.5-10.1) mg/dL Magnesium (1.8-2.4) mg/dL Total Bilirubin (0.2-1.0) mg/dL AST (15-37) IU/L ALT (14-63) IU/L Alkaline Phosphatase (46-116) U/L Ammonia (19-54) ug/dL Total Protein (6.4-8.2) g/dL Albumin (3.4-5.0) g/dL Globulin (2.6-4.0) g/dL Albumin/Globulin Ratio (0.9-1.6) Med Orders - Current: Current Medications Albuterol/Ipratropium (Albuterol/Ipratropium 3.0-0.5 Mg/3 Ml Neb Soln) 3 ml NEB Q4HRRT PRN PRN Reason: Shortness Of Breath/wheezing Dextrose/Water (50% Dextrose In Water 50 Ml Syringe) 50 ml IVPUSH ASDIRECTED PRN PRN Reason: Hypoglycemia Glucagon (Glucagon,Human Recombinant 1 Mg Vial) 1 mg IM ASDIRECTED PRN PRN Reason: Hypoglycemia Lactated Ringer's (Ringers, Lactated) 1,000 mls @ 125 mls/hr IV ASDIRECTED CITLALY Last Admin: 03/26/21 06:51 Dose: 125 mls/hr Documented by: Levofloxacin/Dextrose 750 mg/ (Premix) 150 mls @ 100 mls/hr IV Q24H CITLALY Last Admin: 03/26/21 01:36 Dose: 100 mls/hr Documented by: Metronidazole 500 mg/ Premix 100 mls @ 100 mls/hr IV Q8H CITLALY Last Admin: 03/26/21 06:46 Dose: 100 mls/hr Documented by: Magnesium Sulfate 4 gm/ Premix 100 mls @ 50 mls/hr IV ONETIME ONE Stop: 03/26/21 10:02 Last Admin: 03/26/21 08:54 Dose: 50 mls/hr Documented by: Insulin Aspart (Insulin Aspart 100 Units/Ml 3 Ml Pen) 0 unit SUBCUT Q6HR [facility]; Protocol Last Admin: 03/26/21 06:45 Dose: Not Given Documented by: Lactulose (Lactulose Soln 10 Gm/15 Ml 15 Ml Ud Cup) 20 gm PO Q8H CITLALY Last Admin: 03/26/21 04:44 Dose: 20 gm Documented by: Lorazepam (Lorazepam 2 Mg/Ml Sdv) 1 mg IVPUSH Q4H PRN PRN Reason: Agitation Last Admin: 03/25/21 16:41 Dose: 1 mg Documented by: Ondansetron HCl (Ondansetron 4 Mg/2 Ml Sdv) 4 mg IVPUSH Q4H PRN PRN Reason: Nausea/Vomiting Discontinued Medications Multivitamins/Minerals 10 ml/Thiamine HCl 100 mg/ Folic Acid 1 mg/ Sodium Chloride 1,011.2 mls @ 500 mls/min IV ONETIME ONE Stop: 03/24/21 19:05 Last Admin: 03/24/21 19:52 Dose: 500 mls/min Documented by: Iopamidol (Iopamidol 755 Mg/Ml 50 Ml Bottle) 50 ml IV ONETIME STA Stop: 03/24/21 18:34 Last Admin: 03/24/21 18:35 Dose: 50 ml Documented by: Iopamidol (Iopamidol 755 Mg/Ml 500 Ml Multipack Bottle) 50 ml IVPUSH ONETIME STA Stop: 03/24/21 21:39 Last Admin: 03/24/21 21:39 Dose: 50 ml Documented by: Lactulose (Lactulose Soln 10 Gm/15 Ml 15 Ml Ud Cup) 16.7 gm PO ONETIME ONE Stop: 03/24/21 20:46 Last Admin: 03/24/21 21:33 Dose: 16.7 gm Documented by: Lactulose (Lactulose Soln 10 Gm/15 Ml 15 Ml Ud Cup) 10 gm PO ONETIME ONE Stop: 03/24/21 22:14 Last Admin: 03/24/21 22:30 Dose: 10 gm Documented by: Lorazepam (Lorazepam 2 Mg/Ml Sdv) 1 mg IVPUSH ONETIME ONE Stop: 03/24/21 22:14 Last Admin: 03/24/21 22:30 Dose: 1 mg Documented by: - Exam General: Alert, Oriented, Cooperative, No Acute Distress Lungs: Clear to Auscultation, Normal Respiratory Effort Cardiovascular: Regular Rate, Regular Rhythm GI/Abdominal Exam: Normal Bowel Sounds, Soft, Non-Tender Extremities: Normal Inspection, Normal Range of Motion, Non-Tender, No Pedal Edema Neurological: No New Focal Deficit, Other (Continued intermittent confusion much more alert today) Psy/Mental Status: Alert, Normal Affect, Normal Mood - Patient Data Lab Results Last 24 hrs: Laboratory Results - last 24 hr 03/25/21 03/25/21 03/25/21 Range/Units 11:59 17:46 23:51 WBC (4.0-11.0) K/uL RBC (4.50-5.90) M/uL Hgb (13.0-17.0) g/dL Hct (38.0-50.0) % MCV (80.0-98.0) fL MCH (27.0-32.0) pg MCHC (31.0-37.0) g/dL RDW Std Deviation (28.0-62.0) fl RDW Coeff of Blanche (11.0-15.0) % Plt Count (150-400) K/uL MPV (7.40-12.00) fL Add Manual Diff Neutrophils % (Manual) (48.0-80.0) % Band Neutrophils % % Lymphocytes % (Manual) (16.0-40.0) % Monocytes % (Manual) (0.0-15.0) % Eosinophils % (Manual) (0.0-7.0) % Nucleated RBC % /100WBC Absolute Seg Neuts (1.4-5.7) Band Neutrophils # Lymphocytes # (Manual) (0.6-2.4) Monocytes # (Manual) (0.0-0.8) Eosinophils # (Manual) (0.0-0.7) Nucleated RBCs # K/uL Sodium (136-148) mmol/L Potassium (3.5-5.1) mmol/L Chloride (98-107) mmol/L Carbon Dioxide (21.0-32.0) mmol/L BUN (7.0-18.0) mg/dL Creatinine (0.8-1.3) mg/dL Est Cr Clr Drug Dosing Estimated GFR (MDRD) ml/min Glucose (74-106) mg/dL POC Glucose 128 H 130 H 98 (70-99) mg/dL Calcium (8.5-10.1) mg/dL Magnesium (1.8-2.4) mg/dL Total Bilirubin (0.2-1.0) mg/dL AST (15-37) IU/L ALT (14-63) IU/L Alkaline Phosphatase (46-116) U/L Ammonia (19-54) ug/dL Total Protein (6.4-8.2) g/dL Albumin (3.4-5.0) g/dL Globulin (2.6-4.0) g/dL Albumin/Globulin Ratio (0.9-1.6) 03/26/21 03/26/21 03/26/21 Range/Units 06:22 06:22 06:22 WBC 5.49 (4.0-11.0) K/uL RBC 3.61 L (4.50-5.90) M/uL Hgb 12.1 L (13.0-17.0) g/dL Hct 33.4 L (38.0-50.0) % MCV 92.5 (80.0-98.0) fL MCH 33.5 H (27.0-32.0) pg MCHC 36.2 (31.0-37.0) g/dL RDW Std Deviation 51.4 (28.0-62.0) fl RDW Coeff of Blanche 15 (11.0-15.0) % Plt Count 63 L (150-400) K/uL MPV 11.30 (7.40-12.00) fL Add Manual Diff YES Neutrophils % (Manual) 53 (48.0-80.0) % Band Neutrophils % 2 % Lymphocytes % (Manual) 31 (16.0-40.0) % Monocytes % (Manual) 3 (0.0-15.0) % Eosinophils % (Manual) 11 H (0.0-7.0) % Nucleated RBC % 0.0 /100WBC Absolute Seg Neuts 2.9 (1.4-5.7) Band Neutrophils # 0.1 Lymphocytes # (Manual) 1.7 (0.6-2.4) Monocytes # (Manual) 0.2 (0.0-0.8) Eosinophils # (Manual) 0.6 (0.0-0.7) Nucleated RBCs # 0 K/uL Sodium 140 (136-148) mmol/L Potassium 3.6 (3.5-5.1) mmol/L Chloride 109 H (98-107) mmol/L Carbon Dioxide 21.0 (21.0-32.0) mmol/L BUN 17 (7.0-18.0) mg/dL Creatinine 1.3 (0.8-1.3) mg/dL Est Cr Clr Drug Dosing TNP Estimated GFR (MDRD) 57.1 ml/min Glucose 121 H (74-106) mg/dL POC Glucose (70-99) mg/dL Calcium 8.0 L (8.5-10.1) mg/dL Magnesium 1.6 L (1.8-2.4) mg/dL Total Bilirubin 6.8 H (0.2-1.0) mg/dL AST 42 H (15-37) IU/L ALT 35 (14-63) IU/L Alkaline Phosphatase 150 H (46-116) U/L Ammonia 96 H (19-54) ug/dL Total Protein 6.0 L (6.4-8.2) g/dL Albumin 2.2 L (3.4-5.0) g/dL Globulin 3.8 (2.6-4.0) g/dL Albumin/Globulin Ratio 0.6 L (0.9-1.6) 03/26/21 Range/Units 06:34 WBC (4.0-11.0) K/uL RBC (4.50-5.90) M/uL Hgb (13.0-17.0) g/dL Hct (38.0-50.0) % MCV (80.0-98.0) fL MCH (27.0-32.0) pg MCHC (31.0-37.0) g/dL RDW Std Deviation (28.0-62.0) fl RDW Coeff of Blanche (11.0-15.0) % Plt Count (150-400) K/uL MPV (7.40-12.00) fL Add Manual Diff Neutrophils % (Manual) (48.0-80.0) % Band Neutrophils % % Lymphocytes % (Manual) (16.0-40.0) % Monocytes % (Manual) (0.0-15.0) % Eosinophils % (Manual) (0.0-7.0) % Nucleated RBC % /100WBC Absolute Seg Neuts (1.4-5.7) Band Neutrophils # Lymphocytes # (Manual) (0.6-2.4) Monocytes # (Manual) (0.0-0.8) Eosinophils # (Manual) (0.0-0.7) Nucleated RBCs # K/uL Sodium (136-148) mmol/L Potassium (3.5-5.1) mmol/L Chloride (98-107) mmol/L Carbon Dioxide (21.0-32.0) mmol/L BUN (7.0-18.0) mg/dL Creatinine (0.8-1.3) mg/dL Est Cr Clr Drug Dosing Estimated GFR (MDRD) ml/min Glucose (74-106) mg/dL POC Glucose 109 H (70-99) mg/dL Calcium (8.5-10.1) mg/dL Magnesium (1.8-2.4) mg/dL Total Bilirubin (0.2-1.0) mg/dL AST (15-37) IU/L ALT (14-63) IU/L Alkaline Phosphatase (46-116) U/L Ammonia (19-54) ug/dL Total Protein (6.4-8.2) g/dL Albumin (3.4-5.0) g/dL Globulin (2.6-4.0) g/dL Albumin/Globulin Ratio (0.9-1.6) Result Diagrams: 03/26/21 06:22 03/26/21 06:22 Sepsis Event Note - Evaluation Sepsis Screening Result: No Definite Risk - Focused Exam Vital Signs: Vital Signs Temp Pulse Resp BP Pulse Ox 03/26/21 07:07 96.8 F L 55 L 22 H 129/73 98 03/26/21 04:22 97.2 F 52 L 14 132/79 98 - Problem List & Annotations (1) Encephalopathy SNOMED Code(s): 43529668 Code(s): G93.40 - ENCEPHALOPATHY, UNSPECIFIED Status: Acute Current Visit: Yes (2) Altered mental status SNOMED Code(s): 268474948 Code(s): R41.82 - ALTERED MENTAL STATUS, UNSPECIFIED Status: Acute Current Visit: No (3) Acute cholecystitis SNOMED Code(s): 70645933 Code(s): K81.0 - ACUTE CHOLECYSTITIS Status: Suspected Current Visit: Yes (4) Duodenal mass SNOMED Code(s): 352383098 Code(s): K31.89 - OTHER DISEASES OF STOMACH AND DUODENUM Status: Suspected Current Visit: Yes (5) Dehydration SNOMED Code(s): 56416092 Code(s): E86.0 - DEHYDRATION Status: Acute Current Visit: No (6) Depression SNOMED Code(s): 60763721 Status: Chronic Current Visit: No (7) Diabetes mellitus SNOMED Code(s): 27839662 Status: Chronic Current Visit: No Qualifiers: Diabetes mellitus type: type 2 Diabetes mellitus detention insulin use: wi th detention use Diabetes mellitus complication status: with kidney compl ications (8) HIV (human immunodeficiency virus infection) SNOMED Code(s): 16196647 Status: Chronic Current Visit: No (9) History of COPD SNOMED Code(s): 926945126 Code(s): Z87.09 - PERSONAL HISTORY OF OTHER DISEASES OF THE RESPIRATORY SYSTEM Status: Chronic Current Visit: No (10) History of pancreatitis SNOMED Code(s): 07705299570119 Status: Chronic Current Visit: No (11) Hyperbilirubinemia SNOMED Code(s): 66779787 Code(s): E80.6 - OTHER DISORDERS OF BILIRUBIN METABOLISM Status: Acute Current Visit: Yes (12) Transaminitis SNOMED Code(s): 609900221, 774063158 Code(s): R74.01 - ELEVATION OF LEVELS OF LIVER TRANSAMINASE LEVELS Status: Acute Current Visit: Yes (13) Hyperammonemia SNOMED Code(s): 3478460 Code(s): E72.20 - DISORDER OF UREA CYCLE METABOLISM, UNSPECIFIED Status: Acute Current Visit: Yes (14) CKD (chronic kidney disease) SNOMED Code(s): 049190518 Code(s): N18.9 - CHRONIC KIDNEY DISEASE, UNSPECIFIED Status: Chronic Current Visit: Yes (15) Chronic respiratory failure with hypoxia SNOMED Code(s): 014388941 Code(s): J96.11 - CHRONIC RESPIRATORY FAILURE WITH HYPOXIA Status: Chronic Current Visit: Yes (16) Personal history of arterial venous malformation (AVM) SNOMED Code(s): 731281580 Code(s): Z87.74 - PERSONAL HISTORY OF CONGENITAL MALFORM OF HEART AND CIRC SYS Status: Chronic Current Visit: Yes (17) On home oxygen therapy SNOMED Code(s): 336809763450 Code(s): Z99.81 - DEPENDENCE ON SUPPLEMENTAL OXYGEN Status: Chronic Current Visit: Yes - Problem List Review Problem List Initiated/Reviewed/Updated: Yes - My Orders Last 24 Hours: My Active Orders 03/25/21 08:50 Intake and Output [RC] Q12H 03/25/21 13:37 Consult to Case Management/[employer] [CONS] Routine 03/26/21 Breakfast Regular Diet [DIET] 03/26/21 08:03 Magnesium Sulfate/Water [Magnesium Sulfate in Water 4 GM/100 ML] 4 gm Premix Bag 1 bag IV ONETIME 03/27/21 05:11 AMMONIA VENOUS [CHEM] AM CBC WITH AUTO DIFF [HEME] AM COMPREHENSIVE METABOLIC PN,CMP [CHEM] AM MAGNESIUM [CHEM] AM 03/28/21 05:11 AMMONIA VENOUS [CHEM] AM CBC WITH AUTO DIFF [HEME] AM COMPREHENSIVE METABOLIC PN,CMP [CHEM] AM MAGNESIUM [CHEM] AM 03/29/21 05:11 AMMONIA VENOUS [CHEM] AM CBC WITH AUTO DIFF [HEME] AM COMPREHENSIVE METABOLIC PN,CMP [CHEM] AM MAGNESIUM [CHEM] AM - Plan Plan:: This 55-year-old male admitted with altered mental status and acute cholecystitis with 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 Altered mental status change/encephalopathy -Ammonia improving, 96 today -Hold any medications that could cause sedation or confusion -Continue lactulose 20 mg every 8 hours. With a goal of at least 3 bowel movements daily. -We will likely need lactulose upon discharge. -Keep follow-up with GI as outpatient. 2. Acute cholecystitis -Discontinue Levaquin and Flagyl, no fevers leukocytosis and abdominal ultrasound normal. -Abdominal ultrasound completed no abnormal gallbladder wall thickening or edema noted. -Transaminitis and hyperbilirubinemia appears at baseline. 3. 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 DM type II -Blood sugar checks 3 times daily AC -NovoLog sliding scale 5. History HIV -Most recent CD 4 counts was 791 -Does follow with Dr. Aguirre in [place] -Appears to take antiviral treatment Biktarvy we will restart this when medication available this afternoon 6. Chronic respiratory failure with hypoxia on home O2 secondary to arteriovenous malformation/COPD -Intermittently does not need home oxygen but otherwise uses home oxygen at home 7. CKD -At baseline VTE prophylaxis: SCDs for now GI prophylaxis: Protonix CODE STATUS: Full code Dispo: 1 to 2 days pending improvement s
[2021-03-26] MEDS: Bictegrav/Emtricit/Tenofov Ala [Biktarvy 50-200-25 Mg Tablet] PO SCH (16:58)
[2021-03-27] MEDS: Lactulose Soln 10 GM/15 ML 15 ML UD Cup PO SCH ×3 (04:35→21:22)
[2021-03-27 06:41] LABS: BLOOD UREA NITROGEN,BUN 15 mg/dL (7.0-18.0); CARBON DIOXIDE,CO2 23.2 mmol/L (21.0-32.0); CHLORIDE,CL 107 mmol/L (98-107); GLUCOSE RANDOM 159 mg/dL (74-106); POTASSIUM,K 3.6 mmol/L (3.5-5.1); SODIUM,NA 138 mmol/L (136-148)
[2021-03-27] MEDS: Insulin Aspart 100 Units/ML 3 ML Pen SUBCUT SCH ×3 (06:42→17:29)
[2021-03-27] MEDS: Lactated Ringers 1,000 ML IV SCH ×3 (08:51→17:37)
[2021-03-27] MEDS: Bictegrav/Emtricit/Tenofov Ala [Biktarvy 50-200-25 Mg Tablet] PO SCH (09:13)
[2021-03-27] MEDS: Ofloxacin 0.3% Ophth Soln 5 ML Bottle EYERT SCH ×3 (10:12→17:40)
--- NOTE | 2021-03-27 12:19 | PCM.PN ---
- General Info Date of Service: 03/27/21 Admission Dx/Problem (Free Text): Admission Diagnosis/Problem Admission Diagnosis/Problem Encephalopathy Subjective Update: Much improved today, alert and oriented. No chest pain or SOB. No concerns today, wanting to go home. On second rounds sister and mother at bedside. Patient continues to have intermittent fusion and on readiness. Patient and family feel it is safe for him stay 1 more day to ensure improvement. No other concerns. Functional Status: Reports: Pain Controlled, Tolerating Diet, Ambulating, Urinating - Review of Systems General: Reports: No Symptoms. Denies: Weakness, Fatigue, Malaise HEENT: Reports: No Symptoms. Denies: Headaches, Rhinitis, Visual Changes Pulmonary: Reports: No Symptoms. Denies: Shortness of Breath Cardiovascular: Reports: No Symptoms. Denies: Chest Pain Gastrointestinal: Reports: No Symptoms. Denies: Abdominal Pain, Nausea, Vomiting Genitourinary: Reports: No Symptoms Musculoskeletal: Reports: No Symptoms Skin: Reports: No Symptoms Neurological: Reports: No Symptoms Psychiatric: Reports: No Symptoms - Patient Data Vitals - Most Recent: Last Vital Signs Temp 97.9 F 03/27/21 12:01 Pulse 54 L 03/27/21 12:01 Resp 17 03/27/21 12:01 BP 139/72 03/27/21 12:01 Pulse Ox 97 03/27/21 12:01 Weight - Most Recent: 69 kg I&O - Last 24 Hours: Intake & Output 03/26/21 03/27/21 03/27/21 22:59 06:59 14:59 Intake Total 2893 2123 Output Total 0 Balance 2893 2123 Lab Results Last 24 Hours: Laboratory Results - last 24 hr 03/26/21 03/27/21 03/27/21 Range/Units 16:13 06:05 06:05 WBC 4.97 (4.0-11.0) K/uL RBC 3.46 L (4.50-5.90) M/uL Hgb 11.7 L (13.0-17.0) g/dL Hct 32.2 L (38.0-50.0) % MCV 93.1 (80.0-98.0) fL MCH 33.8 H (27.0-32.0) pg MCHC 36.3 (31.0-37.0) g/dL RDW Std Deviation 52.0 (28.0-62.0) fl RDW Coeff of Blanche 16 H (11.0-15.0) % Plt Count 60 L (150-400) K/uL MPV 10.40 (7.40-12.00) fL Neut % (Auto) 42.2 L (48.0-80.0) % Lymph % (Auto) 34.2 (16.0-40.0) % Bracken % (Auto) 8.9 (0.0-15.0) % Eos % (Auto) 14.3 H (0.0-7.0) % Baso % (Auto) 0.4 (0.0-1.5) % Neut # (Auto) 2.1 (1.4-5.7) K/uL Lymph # (Auto) 1.7 (0.6-2.4) K/uL Bracken # (Auto) 0.4 (0.0-0.8) K/uL Eos # (Auto) 0.7 (0.0-0.7) K/uL Baso # (Auto) 0.0 (0.0-0.1) K/uL Nucleated RBC % 0.0 /100WBC Nucleated RBCs # 0 K/uL Sodium 138 (136-148) mmol/L Potassium 3.6 (3.5-5.1) mmol/L Chloride 107 (98-107) mmol/L Carbon Dioxide 23.2 (21.0-32.0) mmol/L BUN 15 (7.0-18.0) mg/dL Creatinine 1.3 (0.8-1.3) mg/dL Est Cr Clr Drug Dosing TNP Estimated GFR (MDRD) 57.1 ml/min Glucose 159 H (74-106) mg/dL POC Glucose 152 H (70-99) mg/dL Calcium 7.4 L (8.5-10.1) mg/dL Magnesium 2.0 (1.8-2.4) mg/dL Total Bilirubin 4.6 H (0.2-1.0) mg/dL AST 40 H (15-37) IU/L ALT 31 (14-63) IU/L Alkaline Phosphatase 158 H (46-116) U/L Ammonia (19-54) ug/dL Total Protein 5.4 L (6.4-8.2) g/dL Albumin 2.1 L (3.4-5.0) g/dL Globulin 3.3 (2.6-4.0) g/dL Albumin/Globulin Ratio 0.6 L (0.9-1.6) 03/27/21 03/27/21 03/27/21 Range/Units 06:05 06:29 11:12 WBC (4.0-11.0) K/uL RBC (4.50-5.90) M/uL Hgb (13.0-17.0) g/dL Hct (38.0-50.0) % MCV (80.0-98.0) fL MCH (27.0-32.0) pg MCHC (31.0-37.0) g/dL RDW Std Deviation (28.0-62.0) fl RDW Coeff of Blanche (11.0-15.0) % Plt Count (150-400) K/uL MPV (7.40-12.00) fL Neut % (Auto) (48.0-80.0) % Lymph % (Auto) (16.0-40.0) % Bracken % (Auto) (0.0-15.0) % Eos % (Auto) (0.0-7.0) % Baso % (Auto) (0.0-1.5) % Neut # (Auto) (1.4-5.7) K/uL Lymph # (Auto) (0.6-2.4) K/uL Bracken # (Auto) (0.0-0.8) K/uL Eos # (Auto) (0.0-0.7) K/uL Baso # (Auto) (0.0-0.1) K/uL Nucleated RBC % /100WBC Nucleated RBCs # K/uL Sodium (136-148) mmol/L Potassium (3.5-5.1) mmol/L Chloride (98-107) mmol/L Carbon Dioxide (21.0-32.0) mmol/L BUN (7.0-18.0) mg/dL Creatinine (0.8-1.3) mg/dL Est Cr Clr Drug Dosing Estimated GFR (MDRD) ml/min Glucose (74-106) mg/dL POC Glucose 136 H 257 H (70-99) mg/dL Calcium (8.5-10.1) mg/dL Magnesium (1.8-2.4) mg/dL Total Bilirubin (0.2-1.0) mg/dL AST (15-37) IU/L ALT (14-63) IU/L Alkaline Phosphatase (46-116) U/L Ammonia 77 H (19-54) ug/dL Total Protein (6.4-8.2) g/dL Albumin (3.4-5.0) g/dL Globulin (2.6-4.0) g/dL Albumin/Globulin Ratio (0.9-1.6) Med Orders - Current: Current Medications Albuterol/Ipratropium (Albuterol/Ipratropium 3.0-0.5 Mg/3 Ml Neb Soln) 3 ml NEB Q4HRRT PRN PRN Reason: Shortness Of Breath/wheezing Dextrose/Water (50% Dextrose In Water 50 Ml Syringe) 50 ml IVPUSH ASDIRECTED PRN PRN Reason: Hypoglycemia Glucagon (Glucagon,Human Recombinant 1 Mg Vial) 1 mg IM ASDIRECTED PRN PRN Reason: Hypoglycemia Lactated Ringer's (Ringers, Lactated) 1,000 mls @ 125 mls/hr IV ASDIRECTED [facility] Last Admin: 03/27/21 08:51 Dose: 125 mls/hr Documented by: Insulin Aspart (Insulin Aspart 100 Units/Ml 3 Ml Pen) 0 unit SUBCUT TIDAC [facility]; Protocol Last Admin: 03/27/21 11:41 Dose: 3 unit Documented by: Lactulose (Lactulose Soln 10 Gm/15 Ml 15 Ml Ud Cup) 20 gm PO Q8H [facility] Last Admin: 03/27/21 11:45 Dose: 20 gm Documented by: Lorazepam (Lorazepam 2 Mg/Ml Sdv) 1 mg IVPUSH Q4H PRN PRN Reason: Agitation Last Admin: 03/25/21 16:41 Dose: 1 mg Documented by: Ondansetron HCl (Ondansetron 4 Mg/2 Ml Sdv) 4 mg IVPUSH Q4H PRN PRN Reason: Nausea/Vomiting Bictegrav/Emtricit/Tenofov Ala [ Biktarvy 50-200-25 Mg Tablet] 1 each PO DAILY [facility] Last Admin: 03/27/21 09:13 Dose: 1 each Documented by: Prednisolone 1% Opth (Susp) 1 each EYERT QID CITLALY Last Admin: 03/27/21 10:10 Dose: 1 each Documented by: Ofloxacin 0.3% Ophth (Soln 5 Ml Bottle) 1 each EYERT QID CITLALY Last Admin: 03/27/21 10:12 Dose: 1 each Documented by: Discontinued Medications Multivitamins/Minerals 10 ml/Thiamine HCl 100 mg/ Folic Acid 1 mg/ Sodium Chloride 1,011.2 mls @ 500 mls/min IV ONETIME ONE Stop: 03/24/21 19:05 Last Admin: 03/24/21 19:52 Dose: 500 mls/min Documented by: Levofloxacin/Dextrose 750 mg/ (Premix) 150 mls @ 100 mls/hr IV Q24H [facility] Last Admin: 03/26/21 01:36 Dose: 100 mls/hr Documented by: Metronidazole 500 mg/ Premix 100 mls @ 100 mls/hr IV Q8H [facility] Last Admin: 03/26/21 06:46 Dose: 100 mls/hr Documented by: Magnesium Sulfate 4 gm/ Premix 100 mls @ 50 mls/hr IV ONETIME ONE Stop: 03/26/21 10:02 Last Admin: 03/26/21 08:54 Dose: 50 mls/hr Documented by: Insulin Aspart (Insulin Aspart 100 Units/Ml 3 Ml Pen) 0 unit SUBCUT Q6HR [facility]; Protocol Last Admin: 03/26/21 12:10 Dose: Not Given Documented by: Iopamidol (Iopamidol 755 Mg/Ml 50 Ml Bottle) 50 ml IV ONETIME STA Stop: 03/24/21 18:34 Last Admin: 03/24/21 18:35 Dose: 50 ml Documented by: Iopamidol (Iopamidol 755 Mg/Ml 500 Ml Multipack Bottle) 50 ml IVPUSH ONETIME STA Stop: 03/24/21 21:39 Last Admin: 03/24/21 21:39 Dose: 50 ml Documented by: Lactulose (Lactulose Soln 10 Gm/15 Ml 15 Ml Ud Cup) 16.7 gm PO ONETIME ONE Stop: 03/24/21 20:46 Last Admin: 03/24/21 21:33 Dose: 16.7 gm Documented by: Lactulose (Lactulose Soln 10 Gm/15 Ml 15 Ml Ud Cup) 10 gm PO ONETIME ONE Stop: 03/24/21 22:14 Last Admin: 03/24/21 22:30 Dose: 10 gm Documented by: Lorazepam (Lorazepam 2 Mg/Ml Sdv) 1 mg IVPUSH ONETIME ONE Stop: 03/24/21 22:14 Last Admin: 03/24/21 22:30 Dose: 1 mg Documented by: - Exam General: Alert, Oriented, Cooperative Neck: Supple Lungs: Clear to Auscultation, Normal Respiratory Effort Cardiovascular: Regular Rate, Regular Rhythm GI/Abdominal Exam: Normal Bowel Sounds, Soft, Non-Tender Extremities: Normal Inspection, Normal Range of Motion, Non-Tender, No Pedal Edema Neurological: No New Focal Deficit Psy/Mental Status: Alert, Normal Affect, Normal Mood - Patient Data Lab Results Last 24 hrs: Laboratory Results - last 24 hr 03/26/21 03/27/21 03/27/21 Range/Units 16:13 06:05 06:05 WBC 4.97 (4.0-11.0) K/uL RBC 3.46 L (4.50-5.90) M/uL Hgb 11.7 L (13.0-17.0) g/dL Hct 32.2 L (38.0-50.0) % MCV 93.1 (80.0-98.0) fL MCH 33.8 H (27.0-32.0) pg MCHC 36.3 (31.0-37.0) g/dL RDW Std Deviation 52.0 (28.0-62.0) fl RDW Coeff of Blanche 16 H (11.0-15.0) % Plt Count 60 L (150-400) K/uL MPV 10.40 (7.40-12.00) fL Neut % (Auto) 42.2 L (48.0-80.0) % Lymph % (Auto) 34.2 (16.0-40.0) % Bracken % (Auto) 8.9 (0.0-15.0) % Eos % (Auto) 14.3 H (0.0-7.0) % Baso % (Auto) 0.4 (0.0-1.5) % Neut # (Auto) 2.1 (1.4-5.7) K/uL Lymph # (Auto) 1.7 (0.6-2.4) K/uL Bracken # (Auto) 0.4 (0.0-0.8) K/uL Eos # (Auto) 0.7 (0.0-0.7) K/uL Baso # (Auto) 0.0 (0.0-0.1) K/uL Nucleated RBC % 0.0 /100WBC Nucleated RBCs # 0 K/uL Sodium 138 (136-148) mmol/L Potassium 3.6 (3.5-5.1) mmol/L Chloride 107 (98-107) mmol/L Carbon Dioxide 23.2 (21.0-32.0) mmol/L BUN 15 (7.0-18.0) mg/dL Creatinine 1.3 (0.8-1.3) mg/dL Est Cr Clr Drug Dosing TNP Estimated GFR (MDRD) 57.1 ml/min Glucose 159 H (74-106) mg/dL POC Glucose 152 H (70-99) mg/dL Calcium 7.4 L (8.5-10.1) mg/dL Magnesium 2.0 (1.8-2.4) mg/dL Total Bilirubin 4.6 H (0.2-1.0) mg/dL AST 40 H (15-37) IU/L ALT 31 (14-63) IU/L Alkaline Phosphatase 158 H (46-116) U/L Ammonia (19-54) ug/dL Total Protein 5.4 L (6.4-8.2) g/dL Albumin 2.1 L (3.4-5.0) g/dL Globulin 3.3 (2.6-4.0) g/dL Albumin/Globulin Ratio 0.6 L (0.9-1.6) 03/27/21 03/27/21 03/27/21 Range/Units 06:05 06:29 11:12 WBC (4.0-11.0) K/uL RBC (4.50-5.90) M/uL Hgb (13.0-17.0) g/dL Hct (38.0-50.0) % MCV (80.0-98.0) fL MCH (27.0-32.0) pg MCHC (31.0-37.0) g/dL RDW Std Deviation (28.0-62.0) fl RDW Coeff of Blanche (11.0-15.0) % Plt Count (150-400) K/uL MPV (7.40-12.00) fL Neut % (Auto) (48.0-80.0) % Lymph % (Auto) (16.0-40.0) % Bracken % (Auto) (0.0-15.0) % Eos % (Auto) (0.0-7.0) % Baso % (Auto) (0.0-1.5) % Neut # (Auto) (1.4-5.7) K/uL Lymph # (Auto) (0.6-2.4) K/uL Bracken # (Auto) (0.0-0.8) K/uL Eos # (Auto) (0.0-0.7) K/uL Baso # (Auto) (0.0-0.1) K/uL Nucleated RBC % /100WBC Nucleated RBCs # K/uL Sodium (136-148) mmol/L Potassium (3.5-5.1) mmol/L Chloride (98-107) mmol/L Carbon Dioxide (21.0-32.0) mmol/L BUN (7.0-18.0) mg/dL Creatinine (0.8-1.3) mg/dL Est Cr Clr Drug Dosing Estimated GFR (MDRD) ml/min Glucose (74-106) mg/dL POC Glucose 136 H 257 H (70-99) mg/dL Calcium (8.5-10.1) mg/dL Magnesium (1.8-2.4) mg/dL Total Bilirubin (0.2-1.0) mg/dL AST (15-37) IU/L ALT (14-63) IU/L Alkaline Phosphatase (46-116) U/L Ammonia 77 H (19-54) ug/dL Total Protein (6.4-8.2) g/dL Albumin (3.4-5.0) g/dL Globulin (2.6-4.0) g/dL Albumin/Globulin Ratio (0.9-1.6) Result Diagrams: 03/27/21 06:05 03/27/21 06:05 Sepsis Event Note - Evaluation Sepsis Screening Result: No Definite Risk - Focused Exam Vital Signs: Vital Signs Temp Pulse Resp BP Pulse Ox 03/27/21 12:01 97.9 F 54 L 17 139/72 97 03/27/21 07:00 98.0 F 52 L 17 132/78 96 03/27/21 04:00 97.9 F 61 17 129/76 96 - Problem List & Annotations (1) Encephalopathy SNOMED Code(s): 29851652 Code(s): G93.40 - ENCEPHALOPATHY, UNSPECIFIED Status: Acute Current Visit: Yes (2) Altered mental status SNOMED Code(s): 396740611 Code(s): R41.82 - ALTERED MENTAL STATUS, UNSPECIFIED Status: Acute Current Visit: No (3) Acute cholecystitis SNOMED Code(s): 21601377 Code(s): K81.0 - ACUTE CHOLECYSTITIS Status: Suspected Current Visit: Yes (4) Duodenal mass SNOMED Code(s): 523721839 Code(s): K31.89 - OTHER DISEASES OF STOMACH AND DUODENUM Status: Suspected Current Visit: Yes (5) Dehydration SNOMED Code(s): 05031113 Code(s): E86.0 - DEHYDRATION Status: Acute Current Visit: No (6) Depression SNOMED Code(s): 24406440 Status: Chronic Current Visit: No (7) Diabetes mellitus SNOMED Code(s): 77773433 Status: Chronic Current Visit: No Qualifiers: Diabetes mellitus type: type 2 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 use: with correction use Diabetes mellitus complication status: with kidney complications (8) HIV (human immunodeficiency virus infection) SNOMED Code(s): 06668557 Status: Chronic Current Visit: No (9) History of COPD SNOMED Code(s): 152586999 Code(s): Z87.09 - PERSONAL HISTORY OF OTHER DISEASES OF THE RESPIRATORY SYSTEM Status: Chronic Current Visit: No (10) History of pancreatitis SNOMED Code(s): 56183113936501 Status: Chronic Current Visit: No (11) Hyperbilirubinemia SNOMED Code(s): 00844416 Code(s): E80.6 - OTHER DISORDERS OF BILIRUBIN METABOLISM Status: Acute Current Visit: Yes (12) Transaminitis SNOMED Code(s): 713375507, 985719265 Code(s): R74.01 - ELEVATION OF LEVELS OF LIVER TRANSAMINASE LEVELS Status: Acute Current Visit: Yes (13) Hyperammonemia SNOMED Code(s): 3785254 Code(s): E72.20 - DISORDER OF UREA CYCLE METABOLISM, UNSPECIFIED Status: Acute Current Visit: Yes (14) CKD (chronic kidney disease) SNOMED Code(s): 887362337 Code(s): N18.9 - CHRONIC KIDNEY DISEASE, UNSPECIFIED Status: Chronic Current Visit: Yes (15) Chronic respiratory failure with hypoxia SNOMED Code(s): 743577145 Code(s): J96.11 - CHRONIC RESPIRATORY FAILURE WITH HYPOXIA Status: Chronic Current Visit: Yes (16) Personal history of arterial venous malformation (AVM) SNOMED Code(s): 199490439 Code(s): Z87.74 - PERSONAL HISTORY OF CONGENITAL MALFORM OF HEART AND CIRC SYS Status: Chronic Current Visit: Yes (17) On home oxygen therapy SNOMED Code(s): 194156642243 Code(s): Z99.81 - DEPENDENCE ON SUPPLEMENTAL OXYGEN Status: Chronic Current Visit: Yes - Problem List Review Problem List Initiated/Reviewed/Updated: Yes - My Orders Last 24 Hours: My Active Orders 03/26/21 16:15 Patient's Own Medication [Ptom] 1 each PO DAILY 03/26/21 17:00 Insulin Aspart [NovoLOG] See Protocol SUBCUT TIDAC 03/28/21 05:11 AMMONIA VENOUS [CHEM] AM CBC WITH AUTO DIFF [HEME] AM COMPREHENSIVE METABOLIC PN,CMP [CHEM] AM MAGNESIUM [CHEM] AM 03/29/21 05:11 AMMONIA VENOUS [CHEM] AM CBC WITH AUTO DIFF [HEME] AM COMPREHENSIVE METABOLIC PN,CMP [CHEM] AM MAGNESIUM [CHEM] AM - Plan Plan:: This 55-year-old male admitted with altered mental status and acute cholecystitis with 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 Altered mental status change/encephalopathy -Ammonia improving, 77 today would like to see ammonia around 50 prior to discharge. -Hold any medications that could cause sedation or confusion -Continue lactulose 20 mg every 8 hours. With a goal of at least 3 bowel movements daily. -We will likely need lactulose upon discharge. -Keep follow-up with GI as outpatient. 2. Acute cholecystitis -Discontinue Levaquin and Flagyl, no fevers leukocytosis and abdominal ultrasound normal. -Abdominal ultrasound completed no abnormal gallbladder wall thickening or edema noted. -Transaminitis and hyperbilirubinemia appears at baseline. 3. 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 GI appointment rescheduled for April 02 and [place] patient and family aware of this and that we would recommend EGD for biopsy if further identification of mass. 4. DM type II -Blood sugar checks 3 times daily AC -NovoLog sliding scale 5. History HIV -Most recent CD 4 counts was 791 -Does follow with Dr. Aguirre in [place] -continue Biktarvy 6. Chronic respiratory failure with hypoxia on home O2 secondary to arteriovenous malformation/COPD -Intermittently does not need home oxygen but otherwise uses home oxygen at home 7. CKD -At baseline VTE prophylaxis: SCDs for now GI prophylaxis: Protonix CODE STATUS: Full code Dispo: Likely home in a.m.
[2021-03-27] MEDS: PREDNISOLONE EYERT SCH (17:45)
[2021-03-27] MEDS ORDERED: OFLOXACIN EYERT SCH (18:00)
[2021-03-28] MEDS: Ofloxacin 0.3% Ophth Soln 5 ML Bottle EYERT SCH ×2 (00:22→05:16)
[2021-03-28] MEDS: PREDNISOLONE EYERT SCH ×2 (00:25→05:18)
[2021-03-28] MEDS: Lactated Ringers 1,000 ML IV SCH (02:00)
[2021-03-28] MEDS: Lactulose Soln 10 GM/15 ML 15 ML UD Cup PO SCH ×2 (05:17→12:55)
[2021-03-28] MEDS: Insulin Aspart 100 Units/ML 3 ML Pen SUBCUT SCH ×2 (07:12→12:21)
[2021-03-28 07:16] LABS: BLOOD UREA NITROGEN,BUN 12 mg/dL (7.0-18.0); CARBON DIOXIDE,CO2 24.2 mmol/L (21.0-32.0); CHLORIDE,CL 107 mmol/L (98-107); GLUCOSE RANDOM 144 mg/dL (74-106); POTASSIUM,K 4.1 mmol/L (3.5-5.1); SODIUM,NA 139 mmol/L (136-148)
[2021-03-28] MEDS: Bictegrav/Emtricit/Tenofov Ala [Biktarvy 50-200-25 Mg Tablet] PO SCH (09:38)
[2021-03-28 11:58] VITALS: BP 155/77; PULSE 45
--- NOTE | 2021-03-28 13:09 | PCM.DCSUM1 ---
Discharge Summary - Hospital Course Brief History: This 55-year-old male with past medical history of oxygen dependent COPD, HIV, insulin-dependent diabetes presented to the ER after the police were called to his hotel room for welfare check. Apparently he was declining to answer any questions or provide additional history to the police. He was brought to the ER for further evaluation. During initial evaluation patient continues to be obtunded and encephalopathic answering questions with yes or no answers but other times appears to not be comprehending conversation. In the ER no leukocytosis noted hemoglobin 13.1, hematocrit 36.3 platelet count 71,000. Sodium 142 potassium 3.5 chloride 109. BUN 19 creatinine 1.7. Glucose 173. Total bilirubin 6.6 AST 43 ALT 31 alk phos 181 ammonia 203 lipase 21 urine negative urine toxicology negative alcohol level negative Covid swab negative. In the ER patient had head CT due to altered mental status encephalopathy which was negative for any intracranial hemorrhage, infarction and no abnormal enhancement of the brain CT. Mild microangiopathic changes and diffuse parenchymal volume loss noted. Abdominal CT obtained which reveals nodular liver consistent with cirrhosis. There is gallbladder wall thickening and edema no biliary dilation the pancreas is unremarkable. There is a 2.5 centimeter heterogenous soft tissue density in the medial aspect of the descending duodenum concerning for mucosal lesion consider follow-up endoscopy. Gallbladder wall th ickening and edema concerning for cholecystitis. Abdominal ultrasound obtained report pending. In the ER patient was treated with lactulose Ativan banana bag and started on Levaquin and Flagyl. Patient will be admitted for altered mental status and acute cholecystitis. - Discharge Data Discharge Date: 03/28/21 Discharge Disposition: Home, Self-Care 01 Condition: Stable - Referral to Home Health Primary Care Physician: PCP None - Discharge Diagnosis/Problem(s) (1) Encephalopathy SNOMED Code(s): 74688047 ICD Code: G93.40 - ENCEPHALOPATHY, UNSPECIFIED Status: Acute Current Visit: Yes (2) Altered mental status SNOMED Code(s): 502973001 ICD Code: R41.82 - ALTERED MENTAL STATUS, UNSPECIFIED Status: Acute Current Visit: No (3) Acute cholecystitis SNOMED Code(s): 33053956 ICD Code: K81.0 - ACUTE CHOLECYSTITIS Status: Suspected Current Visit: Yes (4) Duodenal mass SNOMED Code(s): 601910786 ICD Code: K31.89 - OTHER DISEASES OF STOMACH AND DUODENUM Status: Suspected Current Visit: Yes (5) Dehydration SNOMED Code(s): 96511231 ICD Code: E86.0 - DEHYDRATION Status: Acute Current Visit: No (6) Depression SNOMED Code(s): 94555570 Status: Chronic Current Visit: No (7) Diabetes mellitus SNOMED Code(s): 57259849 Status: Chronic Current Visit: No Qualifiers: Diabetes mellitus type: type 2 Diabetes mellitus care home insulin use: with exterminator helper use Diabetes mellitus complication status: with kidney complications (8) HIV (human immunodeficiency virus infection) SNOMED Code(s): 61698932 Status: Chronic Current Visit: No (9) History of COPD SNOMED Code(s): 505602103 ICD Code: Z87.09 - PERSONAL HISTORY OF OTHER DISEASES OF THE RESPIRATORY SYSTEM Status: Chronic Current Visit: No (10) History of pancreatitis SNOMED Code(s): 44356403117331 Status: Chronic Current Visit: No (11) Hyperbilirubinemia SNOMED Code(s): 06920030 ICD Code: E80.6 - OTHER DISORDERS OF BILIRUBIN METABOLISM Status: Acute Current Visit: Yes (12) Transaminitis SNOMED Code(s): 439786087, 582174950 ICD Code: R74.01 - ELEVATION OF LEVELS OF LIVER TRANSAMINASE LEVELS Status: Acute Current Visit: Yes (13) Hyperammonemia SNOMED Code(s): 1412487 ICD Code: E72.20 - DISORDER OF UREA CYCLE METABOLISM, UNSPECIFIED Status: Acute Current Visit: Yes (14) CKD (chronic kidney disease) SNOMED Code(s): 719629689 ICD Code: N18.9 - CHRONIC KIDNEY DISEASE, UNSPECIFIED Status: Chronic Current Visit: Yes (15) Chronic respiratory failure with hypoxia SNOMED Code(s): 874466533 ICD Code: J96.11 - CHRONIC RESPIRATORY FAILURE WITH HYPOXIA Status: Chronic Current Visit: Yes (16) Personal history of arterial venous malformation (AVM) SNOMED Code(s): 176271434 ICD Code: Z87.74 - PERSONAL HISTORY OF CONGENITAL MALFORM OF HEART AND CIRC SYS Status: Chronic Current Visit: Yes (17) On home oxygen therapy SNOMED Code(s): 024826082621 ICD Code: Z99.81 - DEPENDENCE ON SUPPLEMENTAL OXYGEN Status: Chronic Current Visit: Yes - Patient Summary/Data Consults: Consultations 03/25/21 13:37 Consult to Case Management/Track Liner Operator [CONS] Routine 03/26/21 23:40 Consult to Physical Therapy [PT Evaluation and Treatment] [CONS] Routine Hospital Course: Admission diagnoses Acute encephalopathy Duodenal mass Dehydration Suspected acute cholecystitis Discharge diagnoses Acute encephalopathy secondary to elevated ammonia Cirrhosis Duodenal mass Dehydration resolved Cholecystitis ruled out Other PMH HIV positive on Biktarvy Diabetes History of COPD Transaminitis CKD Chronic respiratory failure with hypoxia History of arterial venous malformation. Ruben was admitted secondary to altered mental medicine found to have elevated ammonia level at 203 on admission. He was started on lactulose and steadily his mentation improved. On day 3 of admission patient much more alert and oriented. Family was then able to be contacted as he was able to tell us his location prior to being brought in by ambulance. Patient sister and mother at bedside. Patient was updated on findings from CT. Initially it was felt that he potentially had acute cholecystitis was started on Levaquin and Flagyl but abdominal ultrasound ruled this out patient otherwise had no significant pain no fevers no chills. Antibiotics were discontinued. CT also noted possible duodenal mass recommended outpatient follow-up with EGD. Patient ironically had been having some left upper quadrant pain and was ready set up by PCP see gastroenterology [place]. His appointment was on March 25 when he was currently admitted. GI was notified and appointment was rescheduled for April 02. Images from CT abdomen pelvis sent to [facility] GI department so they are able to review these prior to his follow-up appointment. Would commend EGD for further evaluation and possible biopsy. Patient and family notified of these findings and are eager for follow-up appointment. Patient today day 4 of admission much more alert has been ambulatory no longer needing one-on-one attention from nursing staff due to disorientation. Patient has been up ambulating well. Ammonia has dropped to 96. Patient very eager for discharge home. We will continue lactulose 10 g 3 times daily with focus of having 3-4 bowel movements daily to keep ammonia level at day. Recommend continued evaluation by GI for cirrhosis as well as left abdominal pain with possible duodenal mass. He is to continue all previous home medications. Follow-up with PCP in 1 to 2 weeks and keep scheduled GI appointment. Mariana and patient updated on treatment plan and they verbalized understanding. He is to return to the ER clinic if concerns should arise sooner. - Patient Instructions Diet: Regular Diet as Tolerated Activity: No Strenuous Activities Driving: Do Not Drive Showering/Bathing: May Shower Notify Provider of: Fever, Increased Pain, Swelling and Redness, Drainage, Nausea and/or Vomiting Other/Special Instructions: Ensure you are having 3-4 bowel movements daily to keep ammonia level down. - Discharge Plan *PRESCRIPTION DRUG MONITORING PROGRAM REVIEWED*: Not Applicable *COPY OF PRESCRIPTION DRUG MONITORING REPORT IN PATIENT JAMAR: Not Applicable Prescriptions/Med Rec: Lactulose [Chronulac] 10 gm PO Q8H #1 bottle Home Medications: Home Meds Albuterol/Ipratropium [Combivent Respimat] QID 07/28/18 [History] Budesonide/Formoterol [Symbicort 160-4.5 MCG] 2 inh BID 07/28/18 [History] Ondansetron [Zofran ODT] 4 mg PO Q6H PRN #10 tab.dis 09/02/18 [Rx] Bictegrav/Emtricit/Tenofov Ala [Biktarvy 50-200-25 mg Tablet] 1 each PO DAILY 03/26/21 [History] Insulin Aspart [NovoLOG] 03/26/21 [History] Insulin Aspart [NovoLOG] 10 unit SUBCUT TIDMEALS 03/26/21 [History] Insulin Detemir [Levemir] 24 unit SQ BID 03/26/21 [History] diphenhydrAMINE [Benadryl] 25 mg PO BEDTIME PRN 03/26/21 [History] hydrOXYzine HCL [hydrOXYzine] 25 mg PO TID PRN 03/26/21 [History] metFORMIN [Glucophage] 500 mg PO DAILY 03/26/21 [History] Ofloxacin [Ocuflox 0.3% Ophth Soln] 1 drop EYERT QID 03/27/21 [History] prednisoLONE [Prelone 15 MG/5 ML] 1 drop EYERT QID 03/27/21 [History] Lactulose [Chronulac] 10 gm PO Q8H #1 bottle 03/28/21 [Rx] Oxygen Therapy Mode: Room Air Patient Handouts: Hepatic Encephalopathy, Liver Failure, Lactulose oral solution Referrals: Karen Pena MD [Ordering Only Provider] - 04/02/21 1:45 pm () - Discharge Summary/Plan Comment DC Time >30 min.: No - Patient Data Vitals - Most Recent: Last Vital Signs Temp 97.1 F 03/28/21 11:58 Pulse 45 L 03/28/21 11:58 Resp 16 03/28/21 11:58 BP 155/77 H 03/28/21 11:58 Pulse Ox 99 03/28/21 11:58 Weight - Most Recent: 69 kg I&O - Last 24 hours: Intake & Output 03/27/21 03/28/21 03/28/21 22:59 06:59 14:59 Intake Total 1769 600 Output Total 0 Balance 1769 600 Lab Results - Last 24 hrs: Laboratory Results - last 24 hr 03/27/21 03/28/21 03/28/21 Range/Units 17:25 06:16 06:16 WBC 5.43 (4.0-11.0) K/uL RBC 3.57 L (4.50-5.90) M/uL Hgb 11.9 L (13.0-17.0) g/dL Hct 33.0 L (38.0-50.0) % MCV 92.4 (80.0-98.0) fL MCH 33.3 H (27.0-32.0) pg MCHC 36.1 (31.0-37.0) g/dL RDW Std Deviation 52.0 (28.0-62.0) fl RDW Coeff of Blanche 15 (11.0-15.0) % Plt Count 66 L (150-400) K/uL MPV 11.60 (7.40-12.00) fL Neut % (Auto) 41.0 L (48.0-80.0) % Lymph % (Auto) 35.4 (16.0-40.0) % Navarro % (Auto) 9.6 (0.0-15.0) % Eos % (Auto) 13.6 H (0.0-7.0) % Baso % (Auto) 0.4 (0.0-1.5) % Neut # (Auto) 2.2 (1.4-5.7) K/uL Lymph # (Auto) 1.9 (0.6-2.4) K/uL Navarro # (Auto) 0.5 (0.0-0.8) K/uL Eos # (Auto) 0.7 (0.0-0.7) K/uL Baso # (Auto) 0.0 (0.0-0.1) K/uL Nucleated RBC % 0.0 /100WBC Nucleated RBCs # 0 K/uL Sodium 139 (136-148) mmol/L Potassium 4.1 (3.5-5.1) mmol/L Chloride 107 (98-107) mmol/L Carbon Dioxide 24.2 (21.0-32.0) mmol/L BUN 12 (7.0-18.0) mg/dL Creatinine 1.5 H (0.8-1.3) mg/dL Est Cr Clr Drug Dosing TNP Estimated GFR (MDRD) 48.4 ml/min Glucose 144 H (74-106) mg/dL POC Glucose 211 H (70-99) mg/dL Calcium 7.6 L (8.5-10.1) mg/dL Magnesium 1.8 (1.8-2.4) mg/dL Total Bilirubin 4.8 H (0.2-1.0) mg/dL AST 45 H (15-37) IU/L ALT 31 (14-63) IU/L Alkaline Phosphatase 155 H (46-116) U/L Ammonia (19-54) ug/dL Total Protein 5.7 L (6.4-8.2) g/dL Albumin 2.2 L (3.4-5.0) g/dL Globulin 3.5 (2.6-4.0) g/dL Albumin/Globulin Ratio 0.6 L (0.9-1.6) 03/28/21 03/28/21 03/28/21 Range/Units 06:16 07:10 11:41 WBC (4.0-11.0) K/uL RBC (4.50-5.90) M/uL Hgb (13.0-17.0) g/dL Hct (38.0-50.0) % MCV (80.0-98.0) fL MCH (27.0-32.0) pg MCHC (31.0-37.0) g/dL RDW Std Deviation (28.0-62.0) fl RDW Coeff of Blanche (11.0-15.0) % Plt Count (150-400) K/uL MPV (7.40-12.00) fL Neut % (Auto) (48.0-80.0) % Lymph % (Auto) (16.0-40.0) % Navarro % (Auto) (0.0-15.0) % Eos % (Auto) (0.0-7.0) % Baso % (Auto) (0.0-1.5) % Neut # (Auto) (1.4-5.7) K/uL Lymph # (Auto) (0.6-2.4) K/uL Navarro # (Auto) (0.0-0.8) K/uL Eos # (Auto) (0.0-0.7) K/uL Baso # (Auto) (0.0-0.1) K/uL Nucleated RBC % /100WBC Nucleated RBCs # K/uL Sodium (136-148) mmol/L Potassium (3.5-5.1) mmol/L Chloride (98-107) mmol/L Carbon Dioxide (21.0-32.0) mmol/L BUN (7.0-18.0) mg/dL Creatinine (0.8-1.3) mg/dL Est Cr Clr Drug Dosing Estimated GFR (MDRD) ml/min Glucose (74-106) mg/dL POC Glucose 127 H 228 H (70-99) mg/dL Calcium (8.5-10.1) mg/dL Magnesium (1.8-2.4) mg/dL Total Bilirubin (0.2-1.0) mg/dL AST (15-37) IU/L ALT (14-63) IU/L Alkaline Phosphatase (46-116) U/L Ammonia 96 H (19-54) ug/dL Total Protein (6.4-8.2) g/dL Albumin (3.4-5.0) g/dL Globulin (2.6-4.0) g/dL Albumin/Globulin Ratio (0.9-1.6) Med Orders - Current: Current Medications Albuterol/Ipratropium (Albuterol/Ipratropium 3.0-0.5 Mg/3 Ml Neb Soln) 3 ml NEB Q4HRRT PRN PRN Reason: Shortness Of Breath/wheezing Dextrose/Water (50% Dextrose In Water 50 Ml Syringe) 50 ml IVPUSH ASDIRECTED PRN PRN Reason: Hypoglycemia Glucagon (Glucagon,Human Recombinant 1 Mg Vial) 1 mg IM ASDIRECTED PRN PRN Reason: Hypoglycemia Insulin Aspart (Insulin Aspart 100 Units/Ml 3 Ml Pen) 0 unit SUBCUT TIDAC [facility]; Protocol Last Admin: 03/28/21 12:21 Dose: 2 unit Documented by: Lactulose (Lactulose Soln 10 Gm/15 Ml 15 Ml Ud Cup) 20 gm PO Q8H [facility] Last Admin: 03/28/21 12:55 Dose: 20 gm Documented by: Lorazepam (Lorazepam 2 Mg/Ml Sdv) 1 mg IVPUSH Q4H PRN PRN Reason: Agitation Last Admin: 03/25/21 16:41 Dose: 1 mg Documented by: Ondansetron HCl (Ondansetron 4 Mg/2 Ml Sdv) 4 mg IVPUSH Q4H PRN PRN Reason: Nausea/Vomiting Bictegrav/Emtricit/Tenofov Ala [ Biktarvy 50-200-25 Mg Tablet] 1 each PO DAILY [facility] Last Admin: 03/28/21 09:38 Dose: 1 each Documented by: Prednisolone 1% Opth (Susp) 1 each EYERT QID [facility] Last Admin: 03/28/21 05:18 Dose: 1 each Documented by: Ofloxacin 0.3% Ophth (Soln 5 Ml Bottle) 1 each EYERT QID [facility] Last Admin: 03/28/21 05:16 Dose: 1 each Documented by: Prednisolone [ Prelone 15 Mg/5 Ml] Eye Drop 1 each EYERT QID [facility] Last Admin: 03/28/21 05:18 Dose: Not Given Documented by: Discontinued Medications Multivitamins/Minerals 10 ml/Thiamine HCl 100 mg/ Folic Acid 1 mg/ Sodium Chloride 1,011.2 mls @ 500 mls/min IV ONETIME ONE Stop: 03/24/21 19:05 Last Admin: 03/24/21 19:52 Dose: 500 mls/min Documented by: Lactated Ringer's (Ringers, Lactated) 1,000 mls @ 125 mls/hr IV ASDIRECTED [facility] Last Admin: 03/28/21 02:00 Dose: 125 mls/hr Documented by: Levofloxacin/Dextrose 750 mg/ (Premix) 150 mls @ 100 mls/hr IV Q24H [facility] Last Admin: 03/26/21 01:36 Dose: 100 mls/hr Documented by: Metronidazole 500 mg/ Premix 100 mls @ 100 mls/hr IV Q8H [facility] Last Admin: 03/26/21 06:46 Dose: 100 mls/hr Documented by: Magnesium Sulfate 4 gm/ Premix 100 mls @ 50 mls/hr IV ONETIME ONE Stop: 03/26/21 10:02 Last Admin: 03/26/21 08:54 Dose: 50 mls/hr Documented by: Insulin Aspart (Insulin Aspart 100 Units/Ml 3 Ml Pen) 0 unit SUBCUT Q6HR [facility]; Protocol Last Admin: 03/26/21 12:10 Dose: Not Given Documented by: Iopamidol (Iopamidol 755 Mg/Ml 50 Ml Bottle) 50 ml IV ONETIME STA Stop: 03/24/21 18:34 Last Admin: 03/24/21 18:35 Dose: 50 ml Documented by: Iopamidol (Iopamidol 755 Mg/Ml 500 Ml Multipack Bottle) 50 ml IVPUSH ONETIME STA Stop: 03/24/21 21:39 Last Admin: 03/24/21 21:39 Dose: 50 ml Documented by: Lactulose (Lactulose Soln 10 Gm/15 Ml 15 Ml Ud Cup) 16.7 gm PO ONETIME ONE Stop: 03/24/21 20:46 Last Admin: 03/24/21 21:33 Dose: 16.7 gm Documented by: Lactulose (Lactulose Soln 10 Gm/15 Ml 15 Ml Ud Cup) 10 gm PO ONETIME ONE Stop: 03/24/21 22:14 Last Admin: 03/24/21 22:30 Dose: 10 gm Documented by: Lorazepam (Lorazepam 2 Mg/Ml Sdv) 1 mg IVPUSH ONETIME ONE Stop: 03/24/21 22:14 Last Admin: 03/24/21 22:30 Dose: 1 mg Documented by: Ofloxacin [Ocuflox 0 (.3% Ophth Soln]) 1 each EYERT QID [facility] - Exam General: Reports: Alert, Oriented, Cooperative, No Acute Distress Lungs: Reports: Clear to Auscultation, Normal Respiratory Effort Cardiovascular: Reports: Regular Rate, Regular Rhythm GI/Abdominal Exam: Normal Bowel Sounds, Soft, Non-Tender Extremities: Normal Inspection, Normal Range of Motion Neurological: Reports: No New Focal Deficit Psy/Mental Status: Reports: Alert, Normal Affect, Normal Mood
== END 2021-03-28 13:00 | disposition home or self-care (01) | DRG 642 ==
LOC: MW.ED 17:24 → MW.MS 22:57
PROVIDERS: ADMIT Student in an Organized Health Care Education/Training Program; ATTEND Student in an Organized Health Care Education/Training Program
DX: E72.20 Disorder of urea cycle metabolism, unspecified (principal); K81.0 Acute cholecystitis; G93.40 Encephalopathy, unspecified; J96.11 Chronic respiratory failure with hypoxia; G93.49 Other encephalopathy; K74.60 Unspecified cirrhosis of liver; J18.9 Pneumonia, unspecified organism; K72.90 Hepatic failure, unspecified without coma; K31.89 Other diseases of stomach and duodenum; Z99.2 Dependence on renal dialysis; I12.9 Hypertensive chronic kidney disease with stage 1 through stage 4 chronic kidney disease, or unspecified chronic kidney disease; J44.9 Chronic obstructive pulmonary disease, unspecified; E86.0 Dehydration; I27.20 Pulmonary hypertension, unspecified; E80.6 Other disorders of bilirubin metabolism; R74.01 Elevation of levels of liver transaminase levels; Z87.74 Personal history of (corrected) congenital malformations of heart and circulatory system; Z99.81 Dependence on supplemental oxygen; Z79.4 Long term (current) use of insulin; J84.10 Pulmonary fibrosis, unspecified; E11.22 Type 2 diabetes mellitus with diabetic chronic kidney disease; N18.9 Chronic kidney disease, unspecified; F32.9 Major depressive disorder, single episode, unspecified; B20 Human immunodeficiency virus [HIV] disease; Z88.0 Allergy status to penicillin; Z88.2 Allergy status to sulfonamides; Z79.84 Long term (current) use of oral hypoglycemic drugs; Z79.899 Other long term (current) drug therapy; Z20.822 Contact with and (suspected) exposure to COVID-19
CPT/HCPCS: 36415; 70470; 74177; 80053; 80305; 80307; 81003; 82140; 83690; 85025; 85610; 96365; 96375; 99285; A9270 ×2; J2060; J3411; J7030; Q9967 ×2; U0002; 76705; 76705-26; 82947; 83735; 84100; 97116-GP; 97161-GP; 99222; 99233; 99238; 99284; J1815-GY; J1956; J3475; J3490; J7120